=== PATIENT | female | born 1935 | race Caucasian/White ===

== ENCOUNTER 2016-08-28 10:33 | Outpatient (CLI) | payer MEDICARE, OTHER | END 2016-08-28 10:34 | disposition home or self-care (01) | DX: Z12.31 Encounter for screening mammogram for malignant neoplasm of breast (principal) ==

== ENCOUNTER 2016-09-18 09:26 | Emergency (ER) | payer MEDICARE, OTHER ==
[2016-09-18] MEDS ORDERED: SODIUM CHLORIDE 0.9% 1,000 ML IV ONE (10:09)
[2016-09-18] MEDS ORDERED: IOPAMIDOL-300 100 ML VIAL IVP ONE (12:22)
[2016-09-18] MEDS ORDERED: POTASSIUM BICARB 25 MEQ TABLET PO STA (12:54)
[2016-09-18] MEDS ORDERED: POTASSIUM BICARB 25 MEQ TABLET PO ONE (12:58)
[2016-09-18] MEDS ORDERED: ASPIRIN CHEW 81 MG TABLET PO STA (13:40)
[2016-09-18] MEDS ORDERED: ASPIRIN CHEW 81 MG TABLET ONE (13:49)
== END 2016-09-18 13:59 | disposition home or self-care (01) ==
DX: G45.9 Transient cerebral ischemic attack, unspecified (principal); Z96.0 Presence of urogenital implants; Z79.82 Long term (current) use of aspirin; I10 Essential (primary) hypertension; I25.2 Old myocardial infarction; Z85.828 Personal history of other malignant neoplasm of skin
CPT/HCPCS: 36415; 70496; 70498; 80053; 83690; 83735; 85025; 93005; 93010; 96360; 99284; A9270; Q9967

== ENCOUNTER 2017-03-02 09:09 | Outpatient (CLI) | payer MEDICARE, OTHER ==
[2017-03-02 09:24] LABS: BASOPHILS # (AUTO) 0.1 10^3/uL (0.0-0.1); BASOPHILS % (AUTO) 0.8 %; EOSINOPHILS # (AUTO) 0.1 10^3/uL (0.0-0.7); EOSINOPHILS % (AUTO) 1.1 %; HCT - HEMATOCRIT 42.2 % (37.0-47.0); HGB - HEMOGLOBIN 14.4 g/dL (12.0-16.0); LYMPHOCYTES % (AUTO) 26.9 %; MEAN CORPUSCULAR HEMOGLOBIN 28.4 pg (27.0-31.0); MEAN CORPUSCULAR VOLUME 83.4 fL (81.0-99.0); MEAN PLATELET VOLUME 7.1 fL (7.9-10.8); MONOCYTES # (AUTO) 0.5 10^3/uL (0.0-1.0); MONOCYTES % (AUTO) 6.9 %; NEUTROPHILS # (AUTO) 4.7 10^3/uL (1.5-6.6); NEUTROPHILS % (AUTO) 64.3 %; NUCLEATED RED BLOOD CELLS AUTO 0.1 /100WBC; RED BLOOD COUNT 5.06 10^6/uL (4.20-5.40); RED CELL DISTRIBUTION WIDTH 13.3 % (12.0-15.0); UNCORRECTED WHITE BLOOD COUNT 7.3 x10^3/uL; WHITE BLOOD COUNT 7.3 x10^3/uL (4.8-10.8)
[2017-03-02 10:05] LABS: ALBUMIN/GLOBULIN RATIO 1.3 (1.0-2.2); BILIRUBIN,TOTAL 0.3 mg/dL (0.2-1.0); BUN - BLOOD UREA NITROGEN 24 mg/dL (6-20); CALCIUM 10.2 mg/dL (8.5-10.3); CARBON DIOXIDE - CO2 27 mmol/L (21-32); CHLORIDE 98 mmol/L (101-111); CHOL/HDL RATIO 5.1 (<4.4); CHOLESTEROL 179 mg/dL; GFR - MDRD 53 (>89); GLUCOSE 137 mg/dL (70-100); HDL CHOLESTEROL 35 mg/dL; LDL/HDL RATIO 2.9 (<4.4); POTASSIUM 3.5 mmol/L (3.5-5.0); SODIUM 138 mmol/L (135-145); TOTAL PROTEIN 7.4 g/dL (6.7-8.2); TRIGLYCERIDES 214 mg/dL; VLDL CHOLESTEROL 43 mg/dL
[2017-03-02 10:09] LABS: HEMOGLOBIN A1C 0.79 g/dL
== END 2017-03-02 09:10 | disposition home or self-care (01) ==
LOC: LAB 09:09
PROVIDERS: ATTEND Family Medicine
DX: E11.9 Type 2 diabetes mellitus without complications (principal); I10 Essential (primary) hypertension
CPT/HCPCS: 36415; 80053; 80061; 82043; 83036; 84443; 85025

== ENCOUNTER 2017-08-23 15:31 | Outpatient (CLI) | payer MEDICARE, OTHER | END 2017-08-23 15:32 | disposition critical access hospital (66) | LOC: EMS 15:31 | PROVIDERS: ATTEND Surgery | DX: M25.551 Pain in right hip (principal); S00.81XA Abrasion of other part of head, initial encounter; W01.0XXA Fall on same level from slipping, tripping and stumbling without subsequent striking against object, initial encounter; Y93.89 Activity, other specified; Y92.008 Other place in unspecified non-institutional (private) residence as the place of occurrence of the external cause | CPT/HCPCS: A0425; A0429 ==

== ENCOUNTER 2017-08-23 15:53 | Emergency (ER) | payer MEDICARE, OTHER ==
[2017-08-23] MEDS ORDERED: ACETAMINOPHEN 325 MG TABLET PO STA (16:00)
[2017-08-23 16:01] VITALS: BP 172/81
--- NOTE | 2017-08-23 16:10 | ED Physician Documentation ---
History of Present Illness - Stated complaint Stated Complaint: GLF - Additonal information Additional information: hx from pt 82 female tripped over toyin leash and fell hit head - R orthodox hemaotoma some neck pain no CP no AP pain to low back R SI region no numbness or weakness on plavix otherwsie well recently no fever cough NVD etc Review of Systems Constitutional: denies: Fever, Chills Ears: denies: Drainage/discharge Nose: denies: Epistaxis Cardiac: denies: Chest pain / pressure Respiratory: denies: Dyspnea GI: denies: Abdominal Pain, Nausea, Vomiting Musculoskeletal: reports: Neck pain, Back pain Neurologic: reports: Headache, Head injury. 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 Derm: Skin cancer surgery - Present Medications Home Medications: Ambulatory Orders Medication Instructions Recorded Confirmed Cetirizine HCl [Zyrtec] 10 mg PO DAILY 01/10/13 11/10/15 Cholecalciferol (Vitamin D3) 5,000 unit PO DAILY 01/10/13 11/10/15 [Vitamin D-3] Ciprofloxacin HCl [Cipro] 250 mg PO BID 01/10/13 11/10/15 Esomeprazole Magnesium [Nexium] 40 mg PO BID 01/10/13 11/10/15 Fluticasone [Flonase] 1 sprays KELVIN BID 01/10/13 11/10/15 Hydrochlorothiazide 25 mg PO DAILY 01/10/13 11/10/15 Levothyroxine [Synthroid] 25 mcg PO HS 01/10/13 11/10/15 Magnesium 250 mg PO HS PRN 01/10/13 11/10/15 Metoprolol Succinate [Toprol Xl] 50 mg PO DAILY 01/10/13 11/10/15 Oxybutynin [Ditropan] 5 mg PO BID 01/10/13 11/10/15 Sennosides/Docusate Sodium [Stool 1 each PO BID 01/10/13 11/10/15 Softener Tablet] Gabapentin 300 cap PO Q8H PRN 11/10/15 11/10/15 Latanoprost [Xalatan] 1 drops EACHEYE QPM 11/10/15 11/10/15 traMADol [Ultram] 50 mg PO Q8H PRN 11/10/15 11/10/15 Lidocaine Patch 5% [Lidoderm Patch] 1 each TOP DAILY PRN #10 patch 08/23/17 - Allergies Allergies/Adverse Reactions: Allergies Allergy/AdvReac Type Severity Reaction Status Date / Time alcohol Allergy Intermediate unsure Verified 09/18/16 09:45 chocolate flavor Allergy Unknown Unknown Verified 09/18/16 09:45 Penicillins Allergy Unknown unknown Verified 09/18/16 09:45 Sulfa (Sulfonamide Allergy Unknown unknown Verified 09/18/16 09:45 Antibiotics) adhesive Allergy Unknown Verified 09/18/16 09:45 bee venom protein (honey bee) Allergy Unknown Verified 09/18/16 09:45 coconut Allergy Unknown Verified 09/18/16 09:45 grass pollen Allergy Unknown Verified 09/18/16 09:45 mussels Allergy Unknown Verified 09/18/16 09:45 mustard Allergy Unknown Verified 09/18/16 09:45 pepper Allergy Unknown Verified 09/18/16 09:45 pollen extracts Allergy Unknown Verified 09/18/16 09:45 strawberry Allergy Unknown Verified 09/18/16 09:45 walnut Allergy Unknown Verified 09/18/16 09:45 JOHN Inhibitors AdvReac Intermediate dizzy Verified 09/18/16 09:45 ciprofloxacin [From Cipro] AdvReac Intermediate dizzy/light Verified 09/18/16 09 :45 headed ciprofloxacin HCl * AdvReac Intermediate dizzy/light Verified 09/18/16 09:45 [From Cipro] headed codeine [Codeine] AdvReac Intermediate gi problems Verified 09/18/16 09:45 midazolam HCl * [From Versed] AdvReac Intermediate short term Verified 09/18/16 09:45 memory loss osorio pepppers Allergy Mild allergy Uncoded 09/18/16 09:45 symptoms flu vaccine AdvReac Intermediate redness Uncoded 09/18/16 09:45 - Social History Does the pt smoke?: No Smoking Status: Never smoker Does the pt drink ETOH?: No Does the pt have substance abuse?: No - Immunizations Immunizations are current?: No Immunizations: TDAP >10years/unknown PD ED PE NORMAL - Vitals Vital signs reviewed: Yes - HEENT HEENT: No: Atraumatic (hemaotkm a bruise and sup lac to R orthodox, no finley sign , no periorbital ecchymosis) - Neck Neck: Other (no focal TTP but will image 2/2 age and mechansim) - Cardiac Cardiac: RRR - Respiratory Respiratory: No respiratory distress, Clear bilaterally - Abdomen Abdomen: Non tender - Back Back: Other (more R SO region and R ST lumbar region) - Derm Derm: Normal color - Extremities Extremities: Normal ROM s pain, No calf tenderness / cord - Neuro 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, 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, No motor deficit, No sensory deficit, Normal speech Eye Opening: Spontaneous Motor: Obeys Commands Verbal: Oriented GCS Score: 15 Results - Vitals Vitals: Vital Signs - 24 hr 08/23/17 15:56 Temperature 36.2 C L Heart Rate 72 Respiratory 18 Rate Blood Pressure 172/81 H O2 Saturation 96 Oxygen O2 Source Room air - Rads (name of study) CTH Radiology: See rad report (R frontal hemaotma, no ICH or fx) CTCS Radiology: See rad report (no fx) CT LS Radiology: See rad report (no fx, bony demineralization, degen changes and stenosis again noted) CT pelvis Radiology: See rad report (no fx) Departure - Departure Disposition: 01 Home, Self Care Clinical Impression: Head injury Qualifiers: Encounter type: initial encounter Qualified Code(s): S09.90XA - Unspecified injury of head, initial encounter Low back sprain Qualifiers: Encounter type: initial encounter Qualified Code(s): S33.9XXA - Sprain of unspecified parts of lumbar spine and pelvis, initial encounter Fall Qualifiers: Encounter type: initial encounter Qualified Code(s): W19.XXXA - Unspecified fall, initial encounter Condition: Good Instructions: ED Head Injury Closed, ED Low Back Pain Injury Follow-Up: John Tsang MD [Primary Care Provider] - Prescriptions: Lidocaine Patch 5% [Lidoderm Patch] 1 each TOP DAILY PRN #10 patch PRN Reason: Pain Comments: Thankfully all the pictures came back fine. You have degenerative changes of the spine and pelvis but no fracture. Recommend ice to keep the swelling down and tylenol and and lidocaine patches as needed for pain
--- NOTE | 2017-08-23 16:54 | CT Report ---
EXAM: CT HEAD EXAM DATE: 08/23/2017 04:29 PM. CLINICAL HISTORY: Fall R mandaeism injury. COMPARISON: 09/18/2016. TECHNIQUE: Multiaxial CT images were obtained from the foramen magnum to the vertex. Reformats: Coron al. IV contrast: None. In accordance with CT protocol optimization, one or more of the following dose reduction techniques w ere utilized for this exam: automated exposure control, adjustment of mA and/or KV based on patient s ize, or use of iterative reconstructive technique. FINDINGS: Parenchyma: No intraparenchymal hemorrhage. No evidence of mass, midline shift, or CT findings of inf arction. Negro-white differentiation is distinct. Extraaxial Spaces: Normal for age. No subdural or epidural collections identified. Ventricles: Normal in size and position. Sinuses and Orbits: Imaged paranasal sinuses, orbits, and mastoids show no significant abnormality. Bones: No evidence of fracture or calvarial defect. Other: Small right frontal scalp hematoma. IMPRESSION: No acute intracranial abnormality. Right frontal scalp hematoma. [facility] Referring Provider Line: [phone] SITE ID: [id number]
--- NOTE | 2017-08-23 16:55 | CT Preliminary Report ---
Exam: CT PELVIS W/O IMPRESSION: 1. Bony demineralization. No acute fracture or dislocation identified. [facility] SITE ID: [id number]
--- NOTE | 2017-08-23 16:55 | CT Report ---
EXAM: CT BONY PELVIS WITHOUT CONTRAST EXAM DATE: 08/23/2017 04:32 PM. CLINICAL HISTORY: Fall L SI region and low back pain. COMPARISON: None. TECHNIQUE: Thin-section axial images were acquired of the pelvis without contrast. Post-processing: C oronal and sagittal reformats. Other: None. In accordance with CT protocol optimization, one or more of the following dose reduction techniques w ere utilized for this exam: automated exposure control, adjustment of mA and/or KV based on patient s ize, or use of iterative reconstructive technique. FINDINGS: Bones: Bony demineralization. No acute fracture identified. Sacroiliac Joints: Mild bilateral degenerative change. Symphysis Pubis: Mild degenerative change. Right Hip: Mild to moderate degenerative change with mild narrowing, subchondral sclerosis and subcho ndral cysts, as well as small osteophytes. Chronic change along the greater trochanter. No dislocatio n. Left Hip: Mild to moderate degenerative change with mild narrowing, subchondral sclerosis and subchon dral cysts, as well as small osteophytes. Chronic change along the greater trochanter. No dislocation . Musculature: Unremarkable. Pelvic Cavity: No acute focal inflammatory change. Mild clonic diverticulosis. Uterus appears surgica lly absent. Other: Posterior implanted battery pack with lead extending to the left presacral region. IMPRESSION: 1. Bony demineralization. No acute fracture or dislocation identified. [facility] Referring Provider Line: [phone] SITE ID: [id number]
--- NOTE | 2017-08-23 17:00 | CT Report ---
EXAM: CT CERVICAL SPINE WITHOUT CONTRAST DATE: 08/23/2017 04:29 PM. HISTORY: Fall HI. COMPARISONS: None. TECHNIQUE: Thin-section axial images were acquired of the cervical spine without contrast. Post-proce ssing: Coronal and sagittal reformats. Other: None. In accordance with CT protocol optimization, one or more of the following dose reduction techniques w ere utilized for this exam: automated exposure control, adjustment of mA and/or KV based on patient s ize, or use of iterative reconstructive technique. FINDINGS: Mild motion artifact. Alignment: No scoliosis or spondylolisthesis. Bones: No fracture or bone lesion. Interspace Levels/Facets: Moderate to severe disk degeneration with endplate proliferation at C4-C5, C5-C6 and C6-C7. Moderate central canal stenosis at C5-C6 and C6-C7. Multilevel moderate facet arthrosis. Moderate mid and lowe r cervical foraminal stenosis, greater on the right. Musculature: Unremarkable. Other: The paravertebral and prevertebral soft tissues are unremarkable. The lung apices are clear. IMPRESSION: No acute fracture. [facility] Referring Provider Line: [phone] SITE ID: [id number]
--- NOTE | 2017-08-23 17:03 | CT Report ---
EXAM: CT LUMBAR SPINE WITHOUT CONTRAST EXAM DATE: 08/23/2017 04:32 PM. CLINICAL HISTORY: Fall low back pain. COMPARISONS: MRI 11/21/2013. TECHNIQUE: Thin-section axial images were acquired of the lumbar spine from T12 to S1 without contras t. Post-processing: Coronal and sagittal reformats. Other: None. In accordance with CT protocol optimization, one or more of the following dose reduction techniques w ere utilized for this exam: automated exposure control, adjustment of mA and/or KV based on patient s ize, or use of iterative reconstructive technique. FINDINGS: Alignment: Mild anterolisthesis of L4 on L5 measuring approximately 4 mm. Mild retrolisthesis of L2 o n L3 measuring approximately 3 mm. Bones: Bony demineralization. No acute fracture identified. Multilevel degenerative change with endpl ate sclerosis, osteophyte formation. Disk Levels/Facets: Multilevel degenerative change with disk space narrowing, endplate sclerosis and irregularity, and os teophyte formation. Multilevel facet arthropathy also present, most notably at the lower lumbar spine . Probable central canal stenosis again noted that appears most notable at L4-L5 level. Musculature: No fatty atrophy. Other: Small cyst at the superior pole of the right kidney. No hydronephrosis on either side. Small c alcification at the mid to upper left kidney. Implanted device at the right posterior subcutaneous so ft tissues with lead extending to the left presacral region. Atherosclerotic vascular calcification. IMPRESSION: 1. Bony demineralization. No acute fracture identified. 2. Multilevel degenerative disk disease and facet arthropathy again noted. Probable degenerative mild retrolisthesis of L2 on L3, and mild anterolisthesis of L4 on L5. Central canal stenosis again noted , most notably at the L4-L5 level. [facility] Referring Provider Line: [phone] SITE ID: [id number]
== END 2017-08-23 17:59 | disposition home or self-care (01) ==
LOC: EDUNIT# → ED 15:53
DX: S00.03XA Contusion of scalp, initial encounter (principal); S33.5XXA Sprain of ligaments of lumbar spine, initial encounter; W01.0XXA Fall on same level from slipping, tripping and stumbling without subsequent striking against object, initial encounter; I10 Essential (primary) hypertension; I25.2 Old myocardial infarction; J45.909 Unspecified asthma, uncomplicated; K21.9 Gastro-esophageal reflux disease without esophagitis; M19.90 Unspecified osteoarthritis, unspecified site
CPT/HCPCS: 70450; 72125; 72131; 72192; 99283; A9270

== ENCOUNTER 2017-08-30 09:00 | Outpatient (CLI) | payer MEDICARE, OTHER ==
--- NOTE | 2017-08-31 11:11 | Mammography Report ---
DIGITAL SCREENING MAMMOGRAM: 08/30/2017 CLINICAL INDICATION: An 82-year-old nulliparous patient for screening. COMPARISON: 08/2016, 08/2015, 07/2014, 07/2013, 06/2012, 04/2011, 05/2010, 05/2009. TECHNIQUE: Routine CC and MLO projections were obtained of the breasts. FINDINGS: Parenchymal tissue within the breasts is predominantly fatty replaced. There are no dominant masses, suspicious microcalcifications, or secondary signs of malignancy. In comparison to the previous studies, there are no significant changes. IMPRESSION: NO MAMMOGRAPHIC EVIDENCE OF MALIGNANCY. NO SIGNIFICANT INTERVAL CHANGES. RECOMMENDATION: Screening mammography is recommended annually. BIRADS CATEGORY 1 - NEGATIVE. STANDARD QUALIFYING STATEMENTS: 1. This examination was reviewed with the aid of Computed-Aided Detection (CAD). 2. A negative or benign imaging report should not delay biopsy if clinically suspicious findings are present. Consider surgical consultation if warranted. More than 5% of cancers are not identified by imaging. 3. Dense breasts may obscure an underlying neoplasm. TD: 08/31/2017 11:09
== END 2017-08-30 09:01 | disposition home or self-care (01) ==
LOC: DI 09:00
PROVIDERS: ATTEND Family Medicine
DX: Z12.31 Encounter for screening mammogram for malignant neoplasm of breast (principal)
CPT/HCPCS: 77067

== ENCOUNTER 2017-12-20 11:01 | Emergency (ER) | payer MEDICARE, OTHER ==
[2017-12-20 11:08] VITALS: BP 136/63
[2017-12-20 12:34] LABS: BASOPHILS # (AUTO) 0.1 10^3/uL (0.0-0.1); BASOPHILS % (AUTO) 0.8 %; EOSINOPHILS % (AUTO) 0.6 %; HGB - HEMOGLOBIN 14.3 g/dL (12.0-16.0); LYMPHOCYTES # (AUTO) 1.4 10^3/uL (1.5-3.5); LYMPHOCYTES % (AUTO) 19.3 %; MEAN CORPUSCULAR HEMOGLOBIN 28.7 pg (27.0-31.0); MEAN CORPUSCULAR HGB CONC 32.9 g/dL (32.0-36.0); MEAN CORPUSCULAR VOLUME 87.4 fL (81.0-99.0); MEAN PLATELET VOLUME 7.7 fL (7.9-10.8); MONOCYTES # (AUTO) 0.5 10^3/uL (0.0-1.0); MONOCYTES % (AUTO) 7.4 %; NEUTROPHILS # (AUTO) 5.3 10^3/uL (1.5-6.6); NEUTROPHILS % (AUTO) 71.9 %; PLT - PLATELET COUNT 208 10^3/uL (130-450); RED BLOOD COUNT 4.98 10^6/uL (4.20-5.40); RED CELL DISTRIBUTION WIDTH 13.4 % (12.0-15.0); WHITE BLOOD COUNT 7.3 x10^3/uL (4.8-10.8)
--- NOTE | 2017-12-20 12:46 | ED Physician Documentation ---
History of Present Illness - Stated complaint Stated Complaint: DIZZY - Chief complaint Chief Complaint: Neuro - History obtained from History obtained from: Patient, Family - History of Present Illness Timing: How many years ago (2) Pain level max: 0 Pain level now: 0 Improved by: rest Worsened by: standing, walking - Additonal information Additional information: Patient is an 82-year-old female presents to the emergency department with long- standing history of dizziness and lightheadedness. States for the past week or so she has felt more off balance than usual. Her diuretic was recently stopped. She does not drink much water. No headaches. No focal neurological deficits. The room is not spinning. She does not feel near syncopal. Denies any urinary symptoms. No chest pain. No shortness of breath. Review of Systems Ten Systems: 10 systems reviewed and negative Constitutional: denies: Fever, Chills Ears: denies: Ear pain Nose: denies: Rhinorrhea / runny nose, Congestion Throat: denies: Sore throat Cardiac: denies: Chest pain / pressure, Palpitations Respiratory: denies: Dyspnea, Cough GI: denies: Abdominal Pain, Nausea, Vomiting, Diarrhea : denies: Dysuria Skin: denies: Rash Musculoskeletal: denies: Neck pain, Back pain Neurologic: denies: Focal weakness, Numbness, Confused, Altered mental status, Headache PD PAST MEDICAL HISTORY - Past Medical History Cardiovascular: Hypertension, [place] Respiratory: Asthma Endocrine/Autoimmune: None GI: GERD : Incontinence HEENT: None Psych: None Musculoskeletal: Osteoarthritis Derm: None - Past Surgical History Past Surgical History: Yes General: Cholecystectomy Ortho: 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 Derm: Skin cancer surgery - Present Medications Home Medications: Ambulatory Orders Medication Instructions Recorded Confirmed Cetirizine HCl [Zyrtec] 10 mg PO DAILY 01/10/13 11/10/15 Esomeprazole Magnesium [Nexium] 40 mg PO BID 01/10/13 11/10/15 Fluticasone [Flonase] 1 sprays KELVIN BID 01/10/13 11/10/15 Levothyroxine [Synthroid] 25 mcg PO HS 01/10/13 11/10/15 Magnesium 250 mg PO HS PRN 01/10/13 11/10/15 Metoprolol Succinate [Toprol Xl] 50 mg PO DAILY 01/10/13 11/10/15 Oxybutynin [Ditropan] 5 mg PO BID 01/10/13 11/10/15 Sennosides/Docusate Sodium [Stool 1 each PO BID 01/10/13 11/10/15 Softener Tablet] Latanoprost [Xalatan] 1 drops EACHEYE QPM 11/10/15 11/10/15 Atorvastatin [Lipitor] 12/20/17 Biofreeze 12/20/17 Cefdinir 300 mg PO BID #10 capsule 12/20/17 Clopidogrel Bisulfate [Clopidogrel] 12/20/17 Magnesium 250 mg PO 12/20/17 12/20/17 - Allergies Allergies/Adverse Reactions: Allergies Allergy/AdvReac Type Severity Reaction Status Date / Time alcohol Allergy Intermediate unsure Verified 12/20/17 11:13 chocolate flavor Allergy Unknown Unknown Verified 12/20/17 11:13 Penicillins Allergy Unknown unknown Verified 12/20/17 11:13 Sulfa (Sulfonamide Allergy Unknown unknown Verified 12/20/17 11:13 Antibiotics) adhesive Allergy Unknown Verified 12/20/17 11:13 bee venom protein (honey bee) Allergy Unknown Verified 12/20/17 11:13 coconut Allergy Unknown Verified 12/20/17 11:13 grass pollen Allergy Unknown Verified 12/20/17 11:13 mussels Allergy Unknown Verified 12/20/17 11:13 mustard Allergy Unknown Verified 12/20/17 11:13 pepper (genus Capsicum) Allergy Unknown Verified 12/20/17 11:13 [pepper] pollen extracts Allergy Unknown Verified 12/20/17 11:13 strawberry Allergy Unknown Verified 12/20/17 11:13 walnut Allergy Unknown Verified 12/20/17 11:13 JOHN Inhibitors AdvReac Intermediate dizzy Verified 12/20/17 11:13 ciprofloxacin [From Cipro] AdvReac Intermediate dizzy/light Verified 12/20/17 11 :13 headed ciprofloxacin HCl * AdvReac Intermediate dizzy/light Verified 12/20/17 11:13 [From Cipro] headed codeine [Codeine] AdvReac Intermediate gi problems Verified 12/20/17 11:13 midazolam HCl * [From Versed] AdvReac Intermediate short term Verified 12/20/17 11:13 memory loss osorio pepppers Allergy Mild allergy Uncoded 12/20/17 11:13 symptoms flu vaccine AdvReac Intermediate redness Uncoded 12/20/17 11:13 - Social History Does the pt smoke?: No Smoking Status: Never smoker Does the pt drink ETOH?: No Does the pt have substance abuse?: No - Immunizations Immunizations are current?: No Immunizations: TDAP >10years/unknown PD ED PE NORMAL - Vitals Vital signs reviewed: Yes - General General: Alert and oriented X 3, No acute distress - HEENT HEENT: PERRL, EOMI, Ears normal, Moist mucous membranes, Pharynx benign - Neck Neck: Supple, no meningeal sign - Cardiac Cardiac: RRR, Strong equal pulses - Respiratory Respiratory: No respiratory distress, Clear bilaterally - Abdomen Abdomen: Soft, Non tender, Non distended - Derm Derm: Warm and dry, No rash - Extremities Extremities: No deformity, No edema - Neuro 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, 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, No motor deficit, No sensory deficit, Normal speech, Other (no nystagmus) Eye Opening: Spontaneous Motor: Obeys Commands Verbal: Oriented GCS Score: 15 - Psych Psych: Normal mood, Normal affect Results - Vitals Vitals: Vital Signs - 24 hr 12/20/17 11:04 Temperature 36.4 C L Heart Rate 66 Respiratory 18 Rate Blood Pressure 136/63 H O2 Saturation 95 Oxygen O2 Source Room air - EKG (time done) 1220 Rate: Rate (enter#) (60) Rhythm: NSR [place]: Normal Intervals: Normal MD QRS: Normal Ischemia: Normal ST segments Computer interpretation: Agree with computer - Labs Labs: Laboratory Tests 12/20/17 12/20/17 12/20/17 12:27 12:27 14:55 WBC 7.3 RBC 4.98 Hgb 14.3 Hct 43.5 MCV 87.4 MCH 28.7 MCHC 32.9 RDW 13.4 Plt Count 208 MPV 7.7 L Neut # (Auto) 5.3 Lymph # (Auto) 1.4 L [place] # (Auto) 0.5 Eos # (Auto) 0.0 Baso # (Auto) 0.1 Absolute Nucleated RBC 0.00 Nucleated RBC % 0.0 Sodium 137 Potassium 3.8 Chloride 105 Carbon Dioxide 27 Anion Gap 5.0 L BUN 27 H Creatinine 0.9 Estimated GFR (MDRD) 60 L Glucose 161 H Calcium 9.8 Total Bilirubin 0.5 AST 20 ALT 20 Alkaline Phosphatase 83 Total Creatine Kinase 145 Total Protein 7.0 Albumin 3.6 Globulin 3.4 Albumin/Globulin Ratio 1.1 Lipase 18 L Urine Color YELLOW Urine Clarity HAZY Urine pH 6.0 Ur Specific [place] 1.020 Urine Protein NEGATIVE Urine Glucose (UA) NEGATIVE Urine Ketones NEGATIVE Urine Occult Blood NEGATIVE Urine Nitrite POSITIVE H Urine Bilirubin NEGATIVE Urine Urobilinogen 0.2 (NORMAL) Ur Leukocyte Esterase SMALL H Urine RBC 0-5 Urine WBC 11-25 H Ur Squamous Epith Cells NONE SEEN Urine Bacteria Many H Ur Microscopic Review INDICATED Urine Culture Comments INDICATED PD MEDICAL DECISION MAKING - ED course Complexity details: reviewed results, re-evaluated patient, considered differential, d/w patient, d/w family ED course: Patient is an 82-year-old female who presents to the emergency department what appears to be dehydration and a UTI. She is well-appearing, nontoxic. Afebrile. Feels better after IV fluids. Off-balance feeling resolved. Will place on antibiotics and have her follow-up with her doctor. Patient counseled regarding signs and symptoms for which I believe and urgent re-evaluation would be necessary. Patient with good understanding of and agreement to plan and is comfortable going home at this time This document was made in part using voice recognition software. While efforts are made to proofread this document, sound alike and grammatical errors may occur. - Sepsis Event Vital Signs: Vital Signs - 24 hr 12/20/17 11:04 Temperature 36.4 C L Heart Rate 66 Respiratory 18 Rate Blood Pressure 136/63 H O2 Saturation 95 Oxygen O2 Source Room air Departure - Departure Disposition: 01 Home, Self Care Clinical Impression: Dehydration UTI (urinary tract infection) Qualifiers: Urinary tract infection type: acute cystitis Hematuria presence: without hematuria Qualified Code(s): N30.00 - Acute cystitis without hematuria Condition: Good Instructions: ED Dehydration Follow-Up: Benita Berumen MD [Provider Admit Priv/Credential] - Within 1 week Prescriptions: Cefdinir 300 mg PO BID #10 capsule Comments: return if you worsen. Drink plenty of water at home. You were dehydrated today. You also have a bladder infection and need to take all antibiotics until gone. Discharge Date/Time: 12/20/17 15:21
[2017-12-20 12:48] LABS: ALBUMIN 3.6 g/dL (3.2-5.5); ALBUMIN/GLOBULIN RATIO 1.1 (1.0-2.2); BILIRUBIN,TOTAL 0.5 mg/dL (0.2-1.0); CALCIUM 9.8 mg/dL (8.5-10.3); CREATININE 0.9 mg/dL (0.4-1.0)
[2017-12-20] MEDS ORDERED: SODIUM CHLORIDE 0.9% 1,000 ML IV ONE (12:56)
[2017-12-20 15:11] LABS: BILIRUBIN,URINE NEGATIVE (NEGATIVE); GLUCOSE, URINE (UA) NEGATIVE (NEGATIVE); KETONES,URINE (UA) NEGATIVE (NEGATIVE); LEUKOCYTE ESTERASE, URINE SMALL (NEGATIVE); NITRITE,URINE POSITIVE (NEGATIVE); OCCULT BLOOD,URINE NEGATIVE (NEGATIVE); PROTEIN,URINE NEGATIVE (NEGATIVE); UROBILINOGEN,URINE 0.2 (NORMAL) E.U./dL (NORMAL)
[2017-12-20 15:12] LABS: CLARITY,URINE HAZY (CLEAR)
[2017-12-20 15:36] LABS: RBC,URINE 0-5 /HPF (0-5)
[2017-12-20 15:37] LABS: BACTERIA,URINE Many /HPF (None Seen); SQUAMOUS EPITHELIAL CELL,UR NONE SEEN (<= Few)
== END 2017-12-20 15:21 | disposition home or self-care (01) ==
LOC: ED 11:01
DX: E86.0 Dehydration (principal); N30.00 Acute cystitis without hematuria
CPT/HCPCS: 36415; 80053; 81001; 81003; 82550; 83690; 85025; 87086; 87181; 93005; 96360; 96361; 99283; 99284

== ENCOUNTER 2018-01-04 09:49 | Outpatient (CLI) | payer MEDICARE, OTHER ==
[2018-01-04 10:24] LABS: BASOPHILS # (AUTO) 0.1 10^3/uL (0.0-0.1); BASOPHILS % (AUTO) 0.7 %; EOSINOPHILS # (AUTO) 0.1 10^3/uL (0.0-0.7); EOSINOPHILS % (AUTO) 0.8 %; LYMPHOCYTES # (AUTO) 1.5 10^3/uL (1.5-3.5); LYMPHOCYTES % (AUTO) 19.3 %; MEAN CORPUSCULAR HEMOGLOBIN 28.6 pg (27.0-31.0); MEAN CORPUSCULAR HGB CONC 33.6 g/dL (32.0-36.0); MEAN CORPUSCULAR VOLUME 85.2 fL (81.0-99.0); MEAN PLATELET VOLUME 7.6 fL (7.9-10.8); MONOCYTES # (AUTO) 0.5 10^3/uL (0.0-1.0); MONOCYTES % (AUTO) 6.8 %; NEUTROPHILS # (AUTO) 5.5 10^3/uL (1.5-6.6); NEUTROPHILS % (AUTO) 72.4 %; PLT - PLATELET COUNT 225 10^3/uL (130-450); RED BLOOD COUNT 4.91 10^6/uL (4.20-5.40); RED CELL DISTRIBUTION WIDTH 13.2 % (12.0-15.0); WHITE BLOOD COUNT 7.6 x10^3/uL (4.8-10.8)
[2018-01-04 11:22] LABS: HB2 TOTAL 15.2 g/dL; HEMOGLOBIN A1C 0.72 g/dL; HEMOGLOBIN A1C % 6.5 % (4.6-6.2)
[2018-01-04 11:31] LABS: ALBUMIN 4.1 g/dL (3.2-5.5); ALBUMIN/GLOBULIN RATIO 1.4 (1.0-2.2); ALKALINE PHOSPHATASE 93 IU/L (42-121); ALT ALANINE AMINOTRANSFERASE 22 IU/L (10-60); AST ASPARTATE AMINOTRANSFERASE 21 IU/L (10-42); BILIRUBIN,TOTAL 0.7 mg/dL (0.2-1.0); BUN - BLOOD UREA NITROGEN 17 mg/dL (6-20); CALCIUM 9.9 mg/dL (8.5-10.3); CARBON DIOXIDE - CO2 26 mmol/L (21-32); CHLORIDE 102 mmol/L (101-111); CHOL/HDL RATIO 3.7 (<4.4); CHOLESTEROL 146 mg/dL; CREATININE 0.9 mg/dL (0.4-1.0); GFR - MDRD 60 (>89); GLUCOSE 131 mg/dL (70-100); HDL CHOLESTEROL 39 mg/dL; LDL CHOLESTEROL,CALCULATED 82 mg/dL; LDL/HDL RATIO 2.1 (<4.4); SODIUM 138 mmol/L (135-145); VLDL CHOLESTEROL 25 mg/dL
[2018-01-04 12:39] LABS: THYROID STIMULATING HORMONE 2.82 uIU/mL (0.34-5.60)
== END 2018-01-04 09:50 | disposition home or self-care (01) ==
LOC: LAB 09:49
PROVIDERS: ATTEND Family Medicine
DX: R94.5 Abnormal results of liver function studies (principal); E11.9 Type 2 diabetes mellitus without complications; E78.5 Hyperlipidemia, unspecified; F03.90 Unspecified dementia, unspecified severity, without behavioral disturbance, psychotic disturbance, mood disturbance, and anxiety; E03.9 Hypothyroidism, unspecified; I10 Essential (primary) hypertension
CPT/HCPCS: 36415; 80053; 80061; 82043; 82607; 82747; 83036; 83721; 84443; 85025

== ENCOUNTER 2018-01-21 19:01 | Emergency (ER) | payer MEDICARE, OTHER ==
--- NOTE | 2018-01-21 20:00 | XRAY Report ---
Reason: knee pain Procedure Date: 01/21/2018 Accession Number: [id number] / [id number] Procedure: XR - Knee 3 View RT CPT Code: FULL RESULT: EXAM: RIGHT KNEE RADIOGRAPHY EXAM DATE: 01/21/2018 07:30 PM. CLINICAL HISTORY: Knee pain. COMPARISON: None. TECHNIQUE: 3 views. FINDINGS: Bones: There is chronic-appearing spurring of the quadriceps tendon on patella and of the lateral femoral condyle. No acute fracture. Joints: Joint spaces preserved. No joint effusion. Soft Tissues: There is anterior soft tissue swelling. IMPRESSION: 1. Chronic degenerative disease and spurring without acute fracture. [facility]
--- NOTE | 2018-01-21 20:37 | ED Physician Documentation ---
PD HPI LOWER EXT INJURY - Stated complaint Stated Complaint: KNEE PX - Chief complaint Chief Complaint: Ext Problem - History obtained from History obtained from: Patient - History of Present Illness PD HPI LOW EXT INJURY LOCATION: Right, Knee Type of injury: Other (she was just getting up from sitting on toilet and felt a sharp pain in right knee, which continued with attempted weight bearing and walking. Feels sharp pain.). No: Fall, Twist Where injury occurred: Home Timing - onset: Last night Timing - details: Abrupt onset, Still present Worsened by: Other (weight bearing and full extension) Associated symptoms: No: Weakness, Numbness, Swelling Similar symptoms before: Has not had sx before Review of Systems Constitutional: denies: Fever, Chills Skin: denies: Rash, Lesions Neurologic: denies: Focal weakness, Numbness PD PAST MEDICAL HISTORY - Past Medical History Past Medical History: Yes Cardiovascular: Hypertension, [place] Respiratory: Asthma Endocrine/Autoimmune: None GI: GERD : Incontinence HEENT: None Psych: None Musculoskeletal: Osteoarthritis Derm: None - Past Surgical History Past Surgical History: Yes General: Cholecystectomy 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 Derm: Skin cancer surgery - Present Medications Home Medications: Ambulatory Orders Medication Instructions Recorded Confirmed Cetirizine HCl [Zyrtec] 10 mg PO DAILY 01/10/13 11/10/15 Esomeprazole Magnesium [Nexium] 20 mg PO DAILY 01/10/13 11/10/15 Fluticasone [Flonase] 1 sprays KELVIN BID 01/10/13 11/10/15 Levothyroxine [Synthroid] 25 mcg PO HS 01/10/13 11/10/15 Metoprolol Succinate [Toprol Xl] 50 mg PO DAILY 01/10/13 11/10/15 Oxybutynin [Ditropan] 15 mg PO BID 01/10/13 11/10/15 Sennosides/Docusate Sodium [Stool 1 each PO BID 01/10/13 11/10/15 Softener Tablet] Latanoprost [Xalatan] 1 drops EACHEYE QPM 11/10/15 11/10/15 Atorvastatin [Lipitor] 15 mg PO DAILY 12/20/17 Clopidogrel Bisulfate [Clopidogrel] 1 tab PO DAILY 12/20/17 Magnesium 250 mg PO 12/20/17 12/20/17 Clobetasol Propionate 1 01/21/18 Mineral Oil/Petrolatum,White 1 applic 01/21/18 [Hydrocerin Cream] hydroCHLOROthiazide 1 tab PO DAILY 01/21/18 [Hydrochlorothiazide] - Allergies Allergies/Adverse Reactions: Allergies Allergy/AdvReac Type Severity Reaction Status Date / Time alcohol Allergy Intermediate unsure Verified 01/21/18 19:11 chocolate flavor Allergy Unknown Unknown Verified 01/21/18 19:11 Penicillins Allergy Unknown unknown Verified 01/21/18 19:11 Sulfa (Sulfonamide Allergy Unknown unknown Verified 01/21/18 19:11 Antibiotics) adhesive Allergy Unknown Verified 01/21/18 19:11 bee venom protein (honey bee) Allergy Unknown Verified 01/21/18 19:11 coconut Allergy Unknown Verified 01/21/18 19:11 grass pollen Allergy Unknown Verified 01/21/18 19:11 mussels Allergy Unknown Verified 01/21/18 19:11 mustard Allergy Unknown Verified 01/21/18 19:11 pepper (genus Capsicum) Allergy Unknown Verified 01/21/18 19:11 [pepper] pollen extracts Allergy Unknown Verified 01/21/18 19:11 strawberry Allergy Unknown Verified 01/21/18 19:11 walnut Allergy Unknown Verified 01/21/18 19:11 JOHN Inhibitors AdvReac Intermediate dizzy Verified 01/21/18 19:11 ciprofloxacin [From Cipro] AdvReac Intermediate dizzy/light Verified 01/21/18 19 :11 headed ciprofloxacin HCl * AdvReac Intermediate dizzy/light Verified 01/21/18 19:11 [From Cipro] headed codeine [Codeine] AdvReac Intermediate gi problems Verified 01/21/18 19:11 midazolam HCl * [From Versed] AdvReac Intermediate short term Verified 01/21/18 19:11 memory loss osorio pepppers Allergy Mild allergy Uncoded 01/21/18 19:11 symptoms flu vaccine AdvReac Intermediate redness Uncoded 01/21/18 19:11 - Social History Does the pt smoke?: No Smoking Status: Never smoker Does the pt drink ETOH?: No Does the pt have substance abuse?: No - Immunizations Immunizations are current?: No Immunizations: TDAP >10years/unknown PD ED PE NORMAL - Vitals Vital signs reviewed: Yes - General General: Alert and oriented X 3, No acute distress (seems comfortable sitting; but pain with weight bearing. ), Well developed/nourished - Back Back: No CVA TTP, No spinal TTP - Derm Derm: Normal color, Warm and dry - Extremities Extremities: No tenderness to palpate, Normal ROM s pain, No edema, No calf tenderness / cord, Other (right knee without effusion. Tender anterior inferior and medially. No laxity with stress testiong but does hurt with valgus. No clicking nor popping on passive ROM. I tried some valgus stress and straightening thinking there was some flap of meniscus to unlock. She did seem to be some less painful with full extension after that. ) - Neuro Neuro: No motor deficit, No sensory deficit Results - Vitals Vitals: Oxygen O2 Source Room air - Rads (name of study) right knee Radiology: Prelim report reviewed (arthritic changes; no loose bodies nor fractures), EMP read contemporaneously PD MEDICAL DECISION MAKING - ED course Complexity details: reviewed results (xray with some arthritis, no fractures nor loose bodies. ), considered differential (SOunds likely to be meniscal tear or contusion. ), d/w patient - Sepsis Event Vital Signs: Oxygen O2 Source Room air Departure - Departure Disposition: 01 Home, Self Care Clinical Impression: Right knee pain Qualifiers: Chronicity: acute Qualified Code(s): M25.561 - Pain in right knee Acute meniscal injury of knee Qualifiers: Encounter type: initial encounter Laterality: right Qualified Code(s): S83.8X1A - Sprain of other specified parts of right knee, initial encounter Condition: Stable Record reviewed to determine appropriate education?: Yes Instructions: ED Meniscal Injury Knee Poss Follow-Up: Benita Berumen MD [Primary Care Provider] - Comments: Use Aleve twice daily. Add Tylenol if needed for pain. Use knee brace when up and around to reduce motion in the knee and help support it. I think your pain sounds like it is coming from a meniscal injury and will see if this quiets down over the next several days to a week using the knee brace. He can have the brace off when you are resting and sleeping. Follow-up with your primary care next week if not improved. Discharge Date/Time: 01/21/18 21:33
[2018-01-21] MEDS ORDERED: ACETAMINOPHEN 325 MG TABLET PO STA (20:58)
[2018-01-21] MEDS ORDERED: NAPROXEN 250 MG TABLET PO STA (20:58)
[2018-01-21 21:33] VITALS: BP 154/88
== END 2018-01-21 21:33 | disposition home or self-care (01) ==
LOC: ED 19:01
DX: S83.8X1A Sprain of other specified parts of right knee, initial encounter (principal); I10 Essential (primary) hypertension; X50.1XXA Overexertion from prolonged static or awkward postures, initial encounter; Y92.002 Bathroom of unspecified non-institutional (private) residence as the place of occurrence of the external cause
CPT/HCPCS: 29530; 73562; 99283; A9270

== ENCOUNTER 2018-05-13 13:34 | Outpatient (CLI) | payer MEDICARE, OTHER | END 2018-05-13 13:35 | disposition home or self-care (01) | LOC: LAB 13:34 | PROVIDERS: ATTEND Family Medicine | DX: R41.3 Other amnesia (principal); R42 Dizziness and giddiness | CPT/HCPCS: 36415; 83921 ==

== ENCOUNTER 2018-06-03 13:52 | Outpatient (CLI) | payer MEDICARE, OTHER ==
--- NOTE | 2018-06-03 19:15 | Ultrasound Report ---
Reason: TIA,DIZZINESS CHRONIC Procedure Date: 06/03/2018 Accession Number: [id number] / [id number] Procedure: US - Carotid Doppler Complete CPT Code: FULL RESULT: EXAM: BILATERAL CAROTID AND VERTEBRAL ARTERY DUPLEX DOPPLER ULTRASOUND: EXAM DATE: 06/03/2018 03:55 PM CLINICAL HISTORY: TIA, dizziness chronic. COMPARISON: None. TECHNIQUE: Grayscale imaging, color Doppler, and duplex spectral Doppler were used to evaluate the carotid and vertebral arteries bilaterally. Static images were obtained. FINDINGS: No significant plaque is identified in the right or left common or internal carotid arteries. Normal antegrade flow is present in bilateral vertebral arteries. VELOCITIES (cm/sec): Right CCA mid: PSV 78.4 cm/sec CCA dist: PSV 71.8 cm/sec ICA prox: PSV 58.7 cm/sec, EDV 12.7 cm/sec ICA mid: PSV 60.1 cm/sec, EDV 12.7 cm/sec ICA dist: PSV 56.9 cm/sec, EDV 12.3 cm/sec ECA: PSV 91.9 cm/sec Vert: PSV 29.7 cm/sec ICA/CCA: 0.76 Left CCA mid: PSV 91.3 cm/sec CCA dist: PSV 85.5 cm/sec ICA prox: PSV 66.9 cm/sec, EDV 13.6 cm/sec ICA mid: PSV 58.6 cm/sec, EDV 14.9 cm/sec ICA dist: PSV 65.3 cm/sec, EDV 17.9 cm/sec ECA: PSV 79.1 cm/sec Vert: PSV 36.4 cm/sec ICA/CCA: 0.73 ICA diameter stenosis: Right: <50% by velocity and <70% by NASCET criteria. Left: <50% by velocity and <70% by NASCET criteria. IMPRESSION: 1. No significant bilateral carotid artery plaquing. 2. In the right carotid artery there are no elevated carotid artery velocities to suggest hemodynamically significant stenosis. 3. In the left carotid artery there are no elevated carotid artery velocities to suggest hemodynamically significant stenosis. 4. Normal antegrade flow is present in bilateral vertebral arteries. General Recommendations: Stenosis =50% ICA - Follow-up ultrasound 6-12 months Stenosis <50% ICA - High Risk Patient with plaque - Follow-up ultrasound 1-2 years Normal Study but High Risk Patient - Follow-up ultrasound 3-5 years Management recommendations and diagnostic criteria are based on current IAC endorsed standards in Carotid Artery Stenosis: Grayscale and Doppler Ultrasound Diagnosis. Validated velocity measurements with angiographic measurements and velocity criteria are extrapolated from diameter data as defined by the Society of Radiologists in Ultrasound Consensus Conference Radiology 2003; 229;340-346. RADIA
== END 2018-06-03 13:53 | disposition home or self-care (01) ==
LOC: DI 13:52
PROVIDERS: ATTEND Family Medicine
DX: G45.9 Transient cerebral ischemic attack, unspecified (principal); R42 Dizziness and giddiness; I77.819 Aortic ectasia, unspecified site
CPT/HCPCS: 93306; 93880

== ENCOUNTER 2018-07-09 11:09 | Emergency (ER) | payer MEDICARE, OTHER ==
--- NOTE | 2018-07-09 12:21 | ED Physician Documentation ---
PD HPI SYNCOPE - Stated complaint Stated Complaint: SYNCOPE/SENT BY - Chief complaint Chief Complaint: Neuro - History obtained from History obtained from: Patient - History of Present Illness Witnessed: Unwitnessed Timing - onset: How many hours ago (1-2) Duration: Seconds (She states she walked down to get the mail and back which is about 150 yards. She does this regularly. Upon returning she is just getting in to the house and then had a abrupt lightheadedness and went down to her knees. She feels she was passed out for just a few seconds. Her dog was still by her side. She states she has some pain in her knees but is able to walk. She did not feel that she struck her head. She denied any preceding chest pain belly pain or headache and none since. She did not have any shortness of breath no chest pain while out walking the dog.) Preceding symptoms: Light headed (very brief prior to the episode, none since). No: Headache, Chest pain, Palpitations, Abdominal pain, Nausea / vomiting, Generalized weakness Associated symptoms: Other (was feeling her common symptoms of vertigo this morning). No: Headache, Chest pain, Palpitations, Nausea / vomiting, Abdominal pain Contributing factors: No: Recent med change (had BP medchanged about a month ago and was not feeling lightheaded. She has had several months of vertigo type symptoms related to position change and says she saw a specialist in [facility] about it without Rx per se.), Decreased PO intake, Just stood up Injury occurred: Other (feeling sore at the knees.) Similar symptoms before: Has not had sx before (not feeling of syncope. She says she gets vertigo often and has been to specialist about it. Not associated with feeling that she passed out previously.) Recently seen: Not recently seen Review of Systems Constitutional: denies: Fever Nose: denies: Rhinorrhea / runny nose, Congestion Throat: denies: Sore throat Cardiac: denies: Chest pain / pressure, Palpitations Respiratory: denies: Dyspnea, Cough GI: denies: Abdominal Pain, Nausea, Vomiting, Diarrhea : denies: Dysuria, Frequency PD PAST MEDICAL HISTORY - Past Medical History Cardiovascular: Hypertension, [place] Respiratory: Asthma Endocrine/Autoimmune: None GI: GERD : Incontinence HEENT: None Psych: None Musculoskeletal: Osteoarthritis Derm: None - Past Surgical History Past Surgical History: Yes General: Cholecystectomy 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 Derm: Skin cancer surgery - Present Medications Home Medications: Ambulatory Orders Medication Instructions Recorded Confirmed Cetirizine HCl [Zyrtec] 10 mg PO DAILY 01/10/13 07/09/18 Esomeprazole Magnesium [Nexium] 20 mg PO DAILY 01/10/13 07/09/18 Fluticasone [Flonase] 1 sprays KELVIN BID 01/10/13 07/09/18 Levothyroxine [Synthroid] 25 mcg PO HS 01/10/13 07/09/18 Metoprolol Succinate [Toprol Xl] 50 mg PO DAILY 01/10/13 07/09/18 Oxybutynin [Ditropan] 15 mg PO BID 01/10/13 07/09/18 Sennosides/Docusate Sodium [Stool 1 each PO BID 01/10/13 07/09/18 Softener Tablet] Latanoprost [Xalatan] 1 drops EACHEYE QPM 11/10/15 07/09/18 Atorvastatin [Lipitor] 15 mg PO DAILY 12/20/17 07/09/18 Clopidogrel Bisulfate [Clopidogrel] 1 tab PO DAILY 12/20/17 07/09/18 Magnesium 250 mg PO DAILY 12/20/17 07/09/18 Clobetasol Propionate 1 applic TD BID 01/21/18 07/09/18 Mineral Oil/Petrolatum,White 1 applic TD BID 01/21/18 07/09/18 [Hydrocerin Cream] hydroCHLOROthiazide 1 tab PO DAILY 01/21/18 07/09/18 [Hydrochlorothiazide] Nitrofurantoin Monohyd/M-Cryst 100 mg PO BID #10 capsule 07/09/18 [Macrobid 100 mg Capsule] - Allergies Allergies/Adverse Reactions: Allergies Allergy/AdvReac Type Severity Reaction Status Date / Time alcohol Allergy Intermediate unsure Verified 07/09/18 11:24 chocolate flavor Allergy Unknown Unknown Verified 07/09/18 11:24 Penicillins Allergy Unknown unknown Verified 07/09/18 11:24 Sulfa (Sulfonamide Allergy Unknown unknown Verified 07/09/18 11:24 Antibiotics) adhesive Allergy Unknown Verified 07/09/18 11:24 bee venom protein (honey bee) Allergy Unknown Verified 07/09/18 11:24 coconut Allergy Unknown Verified 07/09/18 11:24 grass pollen Allergy Unknown Verified 07/09/18 11:24 mussels Allergy Unknown Verified 07/09/18 11:24 mustard Allergy Unknown Verified 07/09/18 11:24 pepper (genus Capsicum) Allergy Unknown Verified 07/09/18 11:24 [pepper] pollen extracts Allergy Unknown Verified 07/09/18 11:24 strawberry Allergy Unknown Verified 07/09/18 11:24 walnut Allergy Unknown Verified 07/09/18 11:24 JOHN Inhibitors AdvReac Intermediate dizzy Verified 07/09/18 11:24 ciprofloxacin [From Cipro] AdvReac Intermediate dizzy/light Verified 07/09/18 11:24 headed ciprofloxacin HCl * AdvReac Intermediate dizzy/light Verified 07/09/18 11:24 [From Cipro] headed codeine [Codeine] AdvReac Intermediate gi problems Verified 07/09/18 11:24 midazolam HCl * [From Versed] AdvReac Intermediate short term Verified 07/09/18 11:24 memory loss osorio pepppers Allergy Mild allergy Uncoded 07/09/18 11:24 symptoms flu vaccine AdvReac Intermediate redness Uncoded 07/09/18 11:24 - Social History Does the pt smoke?: No Smoking Status: Never smoker Does the pt drink ETOH?: No Does the pt have substance abuse?: No - Immunizations Immunizations are current?: No Immunizations: TDAP >10years/unknown PD ED PE NORMAL - Vitals Vital signs reviewed: Yes - General General: Alert and oriented X 3, No acute distress, Well developed/nourished - HEENT HEENT: Pharynx benign - Neck Neck: Supple, no meningeal sign, No adenopathy, No JVD, No bruit - Cardiac Cardiac: RRR, No murmur - Respiratory Respiratory: Clear bilaterally - Abdomen Abdomen: Soft, Non tender - Back Back: No CVA TTP - Derm Derm: Normal color, Warm and dry - Extremities Extremities: Normal ROM s pain, No edema, No calf tenderness / cord, Other (some tenderness/mild bruising anterior infrapatellar both sides. ) - Neuro 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, No motor deficit, Normal speech Eye Opening: Spontaneous Motor: Obeys Commands Verbal: Oriented GCS Score: 15 Results - Vitals Vitals: Oxygen O2 Source Room air - EKG (time done) 11:21 Rate: Rate (enter#) (62) Rhythm: NSR [place]: Normal Intervals: Normal [place] QRS: Normal Ischemia: Normal ST segments. No: ST elevation c/w ischemia, ST depression - Labs Labs: Microbiology 07/09/18 12:10 Urine Culture - Final Urine,Clean Catch Less Than 10,000 COLONIES/ML UROGENITAL CONSTANTIN Laboratory Tests 07/09/18 07/09/18 07/09/18 12:05 12:10 13:23 WBC 6.8 RBC 4.99 Hgb 14.2 Hct 42.3 MCV 84.7 MCH 28.5 MCHC 33.7 RDW 13.2 Plt Count 207 MPV 7.6 L Neut # (Auto) 4.7 Lymph # (Auto) 1.5 [place] # (Auto) 0.5 Eos # (Auto) 0.0 Baso # (Auto) 0.0 Absolute Nucleated RBC 0.01 Nucleated RBC % 0.1 Sodium Potassium Chloride Carbon Dioxide Anion Gap BUN Creatinine Estimated GFR (MDRD) Glucose POC Whole Bld Glucose 124 H Calcium Magnesium Total Bilirubin AST ALT Alkaline Phosphatase Troponin I Total Protein Albumin Globulin Albumin/Globulin Ratio Lipase Urine Color YELLOW Urine Clarity CLEAR Urine pH 6.5 Ur Specific [place] 1.015 Urine Protein NEGATIVE Urine Glucose (UA) NEGATIVE Urine Ketones NEGATIVE Urine Occult Blood NEGATIVE Urine Nitrite NEGATIVE Urine Bilirubin NEGATIVE Urine Urobilinogen 0.2 (NORMAL) Ur Leukocyte Esterase MODERATE H Urine RBC None Seen Urine WBC 6-10 H Ur Squamous Epith Cells FEW Squamous Urine Bacteria Rare Ur Microscopic Review INDICATED Urine Culture Comments INDICATED 07/09/18 07/09/18 13:23 13:23 WBC RBC Hgb Hct MCV MCH MCHC RDW Plt Count MPV Neut # (Auto) Lymph # (Auto) [place] # (Auto) Eos # (Auto) Baso # (Auto) Absolute Nucleated RBC Nucleated RBC % Sodium 136 Potassium 3.4 L Chloride 100 L Carbon Dioxide 28 Anion Gap 8.0 BUN 26 H Creatinine 0.8 Estimated GFR (MDRD) 68 L Glucose 126 H POC Whole Bld Glucose Calcium 9.9 Magnesium 2.0 Total Bilirubin 0.7 AST 25 ALT 26 Alkaline Phosphatase 96 Troponin I < 0.04 Total Protein 6.8 Albumin 3.8 Globulin 3.0 Albumin/Globulin Ratio 1.3 Lipase 18 L Urine Color Urine Clarity Urine pH Ur Specific [place] Urine Protein Urine Glucose (UA) Urine Ketones Urine Occult Blood Urine Nitrite Urine Bilirubin Urine Urobilinogen Ur Leukocyte Esterase Urine RBC Urine WBC Ur Squamous Epith Cells Urine Bacteria Ur Microscopic Review Urine Culture Comments PD MEDICAL DECISION MAKING - ED course Complexity details: reviewed results, considered differential (did not sound exertional per se, though came at end of getting the mail. Sounds very brief, seconds or so, with some knee bruising, so not full flat fall but to knees first. Shared decision about going home versus OBS for tele watching and she prefers going home. ), d/w patient Departure - Departure Disposition: Home, Self Care Clinical Impression: Syncope Qualifiers: Syncope type: unspecified Qualified Code(s): R55 - Syncope and collapse UTI (urinary tract infection) Qualifiers: Urinary tract infection type: acute cystitis Hematuria presence: without hematuria Qualified Code(s): N30.00 - Acute cystitis without hematuria Condition: Stable Record reviewed to determine appropriate education?: Yes Instructions: ED Fainting Unkn Cause Follow-Up: Robert Santillan MD [Primary Care Provider] - Prescriptions: Nitrofurantoin Monohyd/M-Cryst [Macrobid 100 mg Capsule] 100 mg PO BID #10 capsule Comments: Stay well-hydrated. There is no obvious reason bad reason for your fainting episode. At this point stay well-hydrated and see how you do over the next several days. There was a mild appearing bladder infection which I do not think is enough to make you faint but we will treated with a mild antibiotic since we did identify it. Recheck if recurrent episodes or any other associated symptoms such as chest pain, shortness of breath, belly pain etc. Discharge Date/Time: 07/09/18 14:06
[2018-07-09 12:33] LABS: BILIRUBIN,URINE NEGATIVE (NEGATIVE); GLUCOSE, URINE (UA) NEGATIVE (NEGATIVE); KETONES,URINE (UA) NEGATIVE (NEGATIVE); LEUKOCYTE ESTERASE, URINE MODERATE (NEGATIVE); NITRITE,URINE NEGATIVE (NEGATIVE); OCCULT BLOOD,URINE NEGATIVE (NEGATIVE); PH,URINE 6.5 PH (5.0-7.5); PROTEIN,URINE NEGATIVE (NEGATIVE); UROBILINOGEN,URINE 0.2 (NORMAL) E.U./dL (NORMAL)
[2018-07-09 12:34] LABS: CLARITY,URINE CLEAR (CLEAR)
[2018-07-09 12:40] LABS: BACTERIA,URINE Rare /HPF (None Seen); RBC,URINE None Seen /HPF (0-5); SQUAMOUS EPITHELIAL CELL,UR FEW Squamous (<= Few)
[2018-07-09 13:35] LABS: BASOPHILS % (AUTO) 0.6 %; EOSINOPHILS % (AUTO) 0.7 %; HGB - HEMOGLOBIN 14.2 g/dL (12.0-16.0); LYMPHOCYTES # (AUTO) 1.5 10^3/uL (1.5-3.5); LYMPHOCYTES % (AUTO) 21.4 %; MEAN CORPUSCULAR HEMOGLOBIN 28.5 pg (27.0-31.0); MEAN CORPUSCULAR HGB CONC 33.7 g/dL (32.0-36.0); MEAN CORPUSCULAR VOLUME 84.7 fL (81.0-99.0); MEAN PLATELET VOLUME 7.6 fL (7.9-10.8); MONOCYTES # (AUTO) 0.5 10^3/uL (0.0-1.0); MONOCYTES % (AUTO) 7.7 %; NEUTROPHILS # (AUTO) 4.7 10^3/uL (1.5-6.6); NEUTROPHILS % (AUTO) 69.6 %; PLT - PLATELET COUNT 207 10^3/uL (130-450); RED BLOOD COUNT 4.99 10^6/uL (4.20-5.40); RED CELL DISTRIBUTION WIDTH 13.2 % (12.0-15.0); WHITE BLOOD COUNT 6.8 x10^3/uL (4.8-10.8)
[2018-07-09 13:43] LABS: ALBUMIN 3.8 g/dL (3.2-5.5); ALBUMIN/GLOBULIN RATIO 1.3 (1.0-2.2); BILIRUBIN,TOTAL 0.7 mg/dL (0.2-1.0); CALCIUM 9.9 mg/dL (8.5-10.3); CREATININE 0.8 mg/dL (0.4-1.0); TOTAL PROTEIN 6.8 g/dL (6.7-8.2)
[2018-07-09] MEDS ORDERED: NITROFURANTOIN MACRO 100 MG CAPSULE PO STA (13:48)
[2018-07-09 14:05] VITALS: BP 130/86
== END 2018-07-09 14:06 | disposition home or self-care (01) ==
LOC: ED 11:09
DX: R55 Syncope and collapse (principal); N30.00 Acute cystitis without hematuria; S80.02XA Contusion of left knee, initial encounter; S80.01XA Contusion of right knee, initial encounter; W18.30XA Fall on same level, unspecified, initial encounter; Y93.89 Activity, other specified; Y92.009 Unspecified place in unspecified non-institutional (private) residence as the place of occurrence of the external cause; I10 Essential (primary) hypertension
CPT/HCPCS: 36415; 80053; 81001; 83690; 83735; 84484; 85025; 87086; 93005; 99283; 99284; A9270; 81003

== ENCOUNTER 2018-07-11 12:24 | Emergency (ER) | payer MEDICARE, OTHER ==
[2018-07-11] MEDS ORDERED: SODIUM CHLORIDE 0.9% 1,000 ML IV ONE (14:20)
[2018-07-11 14:34] LABS: BASOPHILS % (AUTO) 0.3 %; EOSINOPHILS % (AUTO) 0.3 %; HGB - HEMOGLOBIN 14.3 g/dL (12.0-16.0); LYMPHOCYTES # (AUTO) 0.3 10^3/uL (1.5-3.5); LYMPHOCYTES % (AUTO) 3.1 %; MEAN CORPUSCULAR HEMOGLOBIN 28.6 pg (27.0-31.0); MEAN CORPUSCULAR HGB CONC 33.5 g/dL (32.0-36.0); MEAN CORPUSCULAR VOLUME 85.4 fL (81.0-99.0); MEAN PLATELET VOLUME 7.3 fL (7.9-10.8); MONOCYTES # (AUTO) 0.4 10^3/uL (0.0-1.0); NEUTROPHILS % (AUTO) 92.3 %; PLT - PLATELET COUNT 187 10^3/uL (130-450); RED BLOOD COUNT 4.99 10^6/uL (4.20-5.40); RED CELL DISTRIBUTION WIDTH 13.1 % (12.0-15.0); WHITE BLOOD COUNT 9.8 x10^3/uL (4.8-10.8)
[2018-07-11 14:48] LABS: ALBUMIN 3.9 g/dL (3.2-5.5); ALBUMIN/GLOBULIN RATIO 1.3 (1.0-2.2); BILIRUBIN,TOTAL 0.5 mg/dL (0.2-1.0); CALCIUM 9.8 mg/dL (8.5-10.3); CREATININE 0.9 mg/dL (0.4-1.0); TOTAL PROTEIN 6.8 g/dL (6.7-8.2)
[2018-07-11] MEDS ORDERED: POTASSIUM CHLOR 10 MEQ/100 ML 10 MEQ/100 ML BAG IV STA (15:03)
[2018-07-11] MEDS ORDERED: NAPROXEN 250 MG TABLET PO STA (15:16)
--- NOTE | 2018-07-11 17:02 | ED Physician Documentation ---
History of Present Illness - Stated complaint Stated Complaint: SENT BY DOC FOR FLUIDS - Chief complaint Chief Complaint: Neuro - History obtained from History obtained from: Patient, Other (PMD) - History of Present Illness Associated symptoms: Lightheaded when standing. - Additonal information Additional information: The patient is an 83-year-old female who was sent here from her primary physician's office for IV fluid therapy after she was found to have orthostatic symptoms in clinic. She has been lightheaded when standing. 2 days ago she fell when she became abruptly lightheaded when walking. She was seen here and evaluated at that time. She was treated with IV fluids, and was started on Macrobid for positive urinalysis. However subsequent urine culture grew less than 10,000 colonies of urogenital jeremiah, suggesting contaminated urine.the patient denies fever, chest pain, shortness of breath, nausea, vomiting, diarrhea, or dysuria. Besides lightheadedness, she reports slight palpitations. Review of Systems Constitutional: reports: Other (Lightheaded.). denies: Fever Eyes: denies: Decreased vision Ears: denies: Tinnitus/ringing Nose: denies: Congestion Throat: denies: Sore throat Cardiac: reports: Palpitations. denies: Chest pain / pressure Respiratory: denies: Dyspnea, Cough GI: denies: Abdominal Pain, Nausea, Vomiting, Diarrhea : denies: Dysuria Skin: denies: Rash Musculoskeletal: denies: Back pain Neurologic: denies: Focal weakness, Numbness, Altered mental status, Headache PD PAST MEDICAL HISTORY - Past Medical History Cardiovascular: Hypertension, [place] Respiratory: Asthma Endocrine/Autoimmune: HyPOthyroidism GI: GERD : Incontinence HEENT: None Psych: None Musculoskeletal: Osteoarthritis Derm: None - Past Surgical History Past Surgical History: Yes General: Cholecystectomy Ortho: Shoulder arthroplasty /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 Derm: Skin cancer surgery - Present Medications Home Medications: Ambulatory Orders Medication Instructions Recorded Confirmed Cetirizine HCl [Zyrtec] 10 mg PO DAILY 01/10/13 07/09/18 Esomeprazole Magnesium [Nexium] 20 mg PO DAILY 01/10/13 07/09/18 Fluticasone [Flonase] 1 sprays KELVIN BID 01/10/13 07/09/18 Levothyroxine [Synthroid] 25 mcg PO HS 01/10/13 07/09/18 Metoprolol Succinate [Toprol Xl] 50 mg PO DAILY 01/10/13 07/09/18 Oxybutynin [Ditropan] 15 mg PO BID 01/10/13 07/09/18 Sennosides/Docusate Sodium [Stool 1 each PO BID 01/10/13 07/09/18 Softener Tablet] Latanoprost [Xalatan] 1 drops EACHEYE QPM 11/10/15 07/09/18 Atorvastatin [Lipitor] 15 mg PO DAILY 12/20/17 07/09/18 Clopidogrel Bisulfate [Clopidogrel] 1 tab PO DAILY 12/20/17 07/09/18 Magnesium 250 mg PO DAILY 12/20/17 07/09/18 Clobetasol Propionate 1 applic TD BID 01/21/18 07/09/18 Mineral Oil/Petrolatum,White 1 applic TD BID 01/21/18 07/09/18 [Hydrocerin Cream] hydroCHLOROthiazide 1 tab PO DAILY 01/21/18 07/09/18 [Hydrochlorothiazide] Nitrofurantoin Monohyd/M-Cryst 100 mg PO BID #10 capsule 07/09/18 [Macrobid 100 mg Capsule] - Allergies Allergies/Adverse Reactions: Allergies Allergy/AdvReac Type Severity Reaction Status Date / Time alcohol Allergy Intermediate unsure Verified 07/11/18 12:48 chocolate flavor Allergy Unknown Unknown Verified 07/11/18 12:48 Penicillins Allergy Unknown unknown Verified 07/11/18 12:48 Sulfa (Sulfonamide Allergy Unknown unknown Verified 07/11/18 12:48 Antibiotics) adhesive Allergy Unknown Verified 07/11/18 12:48 bee venom protein (honey bee) Allergy Unknown Verified 07/11/18 12:48 coconut Allergy Unknown Verified 07/11/18 12:48 grass pollen Allergy Unknown Verified 07/11/18 12:48 mussels Allergy Unknown Verified 07/11/18 12:48 mustard Allergy Unknown Verified 07/11/18 12:48 oxycodone Allergy Unknown Verified 07/12/18 11:09 pepper (genus Capsicum) Allergy Unknown Verified 07/11/18 12:48 [pepper] pollen extracts Allergy Unknown Verified 07/11/18 12:48 strawberry Allergy Unknown Verified 07/11/18 12:48 walnut Allergy Unknown Verified 07/11/18 12:48 JOHN Inhibitors AdvReac Intermediate dizzy Verified 07/11/18 12:48 ciprofloxacin [From Cipro] AdvReac Intermediate dizzy/light Verified 07/11/18 12:48 headed ciprofloxacin HCl * AdvReac Intermediate dizzy/light Verified 07/11/18 12:48 [From Cipro] headed codeine [Codeine] AdvReac Intermediate gi problems Verified 07/11/18 12:48 midazolam HCl * [From Versed] AdvReac Intermediate short term Verified 07/11/18 12:48 memory loss osorio pepppers Allergy Mild allergy Uncoded 07/11/18 12:48 symptoms flu vaccine AdvReac Intermediate redness Uncoded 07/11/18 12:48 - Social History Does the pt smoke?: No Smoking Status: Never smoker Does the pt drink ETOH?: No Does the pt have substance abuse?: No - Immunizations Immunizations are current?: No Immunizations: TDAP >10years/unknown PD ED PE NORMAL - Vitals Vital signs reviewed: Yes (Blood pressure initially 133/32.) - General General: Alert and oriented X 3, Well developed/nourished - HEENT HEENT: Atraumatic, Pharynx benign - Neck Neck: Supple, no meningeal sign, No bony TTP, No adenopathy, No JVD - Cardiac Cardiac: RRR - Respiratory Respiratory: No respiratory distress, Clear bilaterally - Abdomen Abdomen: Soft, Non tender - Back Back: No CVA TTP, No spinal TTP - Derm Derm: No rash - Extremities Extremities: No edema, No calf tenderness / cord, Other (Ecchymosis on the right upper arm.) - Neuro 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, No motor deficit, No sensory deficit, Normal speech Results - Vitals Vitals: Oxygen O2 Source Room air - Labs Labs: Laboratory Tests 07/11/18 07/11/18 14:31 14:31 WBC 9.8 RBC 4.99 Hgb 14.3 Hct 42.6 MCV 85.4 MCH 28.6 MCHC 33.5 RDW 13.1 Plt Count 187 MPV 7.3 L Neut # (Auto) 9.0 H Lymph # (Auto) 0.3 L [place] # (Auto) 0.4 Eos # (Auto) 0.0 Baso # (Auto) 0.0 Absolute Nucleated RBC 0.00 Nucleated RBC % 0.0 Sodium 137 Potassium 2.9 L Chloride 100 L Carbon Dioxide 26 Anion Gap 11.0 BUN 25 H Creatinine 0.9 Estimated GFR (MDRD) 60 L Glucose 181 H Calcium 9.8 Total Bilirubin 0.5 AST 28 ALT 25 Alkaline Phosphatase 96 Total Protein 6.8 Albumin 3.9 Globulin 2.9 Albumin/Globulin Ratio 1.3 Lipase 18 L PD MEDICAL DECISION MAKING - ED course Complexity details: reviewed old records, reviewed results, re-evaluated patient, considered differential, d/w patient, d/w family ED course: The patient's presentation is most consistent with orthostatic hypotension due to dehydration. In addition her chemistry panel reveals hypokalemia, with potassium of 2.9. Her BUN is elevated at 25, with a normal creatinine of 0.9. Her glucose is elevated at 181. CBC and urinalysis are normal. Her clinical presentation does not suggest sepsis, acute neurologic etiology, and there is no current evidence of cardiac dysrhythmia. Treatment in the emergency department included administration of normal saline 1 L IV and potassium 10 mEq IV. She had missed her normal dose of Naprosyn, so 500 mg Naprosyn was administered orally. At the time of discharge the patient demonstrates ability to ambulate without lightheadedness. I discussed with her symptomatic treatment, outpatient follow-up, as well as potentially worrisome signs or symptoms that should prompt reevaluation in the emergency department. Departure - Departure Disposition: 01 Home, Self Care Clinical Impression: Orthostatic hypotension, Dehydration Condition: Stable Instructions: ED Hypotension Orthostatic Follow-Up: Kourtney Baer PA-C [Primary Care Provider] - Comments: Drink plenty of fluids. When you stand to give yourself time to equilibrate before you start walking. Follow-up with your primary physician within 2 weeks. Call to schedule appointment. Return to the emergency department if you develop increasing problems with dizziness or lightheadedness, or otherwise worsening symptoms. Discharge Date/Time: 07/11/18 17:22
[2018-07-11 17:06] VITALS: BP 116/65
== END 2018-07-11 17:22 | disposition home or self-care (01) ==
LOC: ED 12:24
DX: I95.1 Orthostatic hypotension (principal); E86.0 Dehydration; E87.6 Hypokalemia; R73.9 Hyperglycemia, unspecified; I10 Essential (primary) hypertension; I25.2 Old myocardial infarction
CPT/HCPCS: 36415; 80053; 83690; 85025; 96361; 96365; 96366; 99283; A9270

== ENCOUNTER 2018-07-27 15:02 | Outpatient (CLI) | payer MEDICARE, OTHER ==
--- NOTE | 2018-07-27 15:47 | XRAY Report ---
Reason: HIP PAIN LEFT Procedure Date: 07/27/2018 Accession Number: [id number] / [id number] Procedure: WCP - Hip w/Pelvis 2-3V LT CPT Code: FULL RESULT: EXAM: LEFT HIP RADIOGRAPHY EXAM DATE: 07/27/2018 03:20 PM. CLINICAL HISTORY: HIP PAIN LEFT. COMPARISON: PELVIS 1 VIEW 02/22/2015 9:21 PM. TECHNIQUE: 2 views. FINDINGS: Bones: Normal. No fractures or bone lesion. Joints: Moderate joint space narrowing of the left hip. Sacroiliac joints are congruent. Soft Tissues: Interval placement of a nerve stimulator-type device stimulator placed projecting over the right iliac wing and the stimulator lead terminating inferior to the left SI joint on the frontal projection. IMPRESSION: Moderate degenerative disease of the hip. RADIA
== END 2018-07-27 15:03 | disposition home or self-care (01) ==
LOC: DI.WCP 15:02
PROVIDERS: ATTEND Physician Assistant Medical
DX: M16.12 Unilateral primary osteoarthritis, left hip (principal); N39.0 Urinary tract infection, site not specified; E87.6 Hypokalemia
CPT/HCPCS: 36415; 80048; 87086

== ENCOUNTER 2018-07-27 15:25 | Outpatient (CLI) | payer MEDICARE, OTHER ==
[2018-07-27 19:32] LABS: CREATININE 0.9 mg/dL (0.4-1.0)
== END 2018-07-27 23:59 | disposition home or self-care (01) ==
LOC: LAB.WCP 15:25
PROVIDERS: ATTEND Physician Assistant Medical
DX: E87.6 Hypokalemia (principal)
CPT/HCPCS: 36415; 80048

== ENCOUNTER 2018-07-27 15:30 | Outpatient (CLI) | payer MEDICARE, OTHER | END 2018-07-27 23:59 | disposition home or self-care (01) | LOC: LAB.R 15:30 | PROVIDERS: ATTEND Physician Assistant Medical | DX: N39.0 Urinary tract infection, site not specified (principal) | CPT/HCPCS: 87086 ==

== ENCOUNTER 2018-07-30 09:02 | Outpatient (CLI) | payer MEDICARE, OTHER ==
--- NOTE | 2018-07-31 11:00 | CT Report ---
Reason: TIA Procedure Date: 07/30/2018 Accession Number: [id number] / [id number] Procedure: CT - HEAD WO CPT Code: FULL RESULT: EXAM: CT HEAD EXAM DATE: 07/30/2018 09:31 AM. CLINICAL HISTORY: TIA (transient ischemic attack). COMPARISON: CT head 07/19/2009. CT angiogram head and neck 09/18/2016. TECHNIQUE: Multiaxial CT images were obtained from the foramen magnum to the vertex. Reformats: Sagittal and coronal. IV contrast: None. In accordance with CT protocol optimization, one or more of the following dose reduction techniques were utilized for this exam: automated exposure control, adjustment of mA and/or KV based on patient size, or use of iterative reconstructive technique. FINDINGS: Parenchyma: There is a 3 mm calcification along the left ventral aspect of the lower fazal near its junction with the medulla which is stable dating back to the more remote comparison study. No territorial loss of negro-white matter differentiation is present. No intracranial mass or hemorrhage is present. Extraaxial Spaces: Normal for age. No subdural or epidural collections identified. Ventricles: Normal in size and position. Sinuses and Orbits: Imaged paranasal sinuses, orbits, and mastoids show no significant abnormality. Bones: No evidence of fracture or calvarial defect. Other: None. IMPRESSION: 1. A calcification along the left ventral aspect of the lower afzal is stable dating back to the more remote comparison study. This could reflect a calcified vascular lesion or the sequela of a prior infectious/inflammatory process. 2. No intracranial mass or hemorrhage is present. 3. Negro-white matter differentiation is preserved. RADIA
== END 2018-07-30 09:03 | disposition home or self-care (01) ==
LOC: DI 09:02
PROVIDERS: ATTEND Physician Assistant Medical
DX: G45.9 Transient cerebral ischemic attack, unspecified (principal)
CPT/HCPCS: 70450

== ENCOUNTER 2018-08-15 15:33 | Outpatient (CLI) | payer MEDICARE, OTHER | END 2018-08-15 15:34 | disposition home or self-care (01) | LOC: SC 15:33 | PROVIDERS: ATTEND Nurse Practitioner Family | DX: G47.10 Hypersomnia, unspecified (principal); R41.89 Other symptoms and signs involving cognitive functions and awareness; G47.8 Other sleep disorders; R53.83 Other fatigue; R06.83 Snoring | CPT/HCPCS: 99204; G0463; 99212 ==

== ENCOUNTER 2018-09-18 20:18 | Outpatient (CLI) | payer MEDICARE, OTHER | END 2018-09-18 20:19 | disposition home or self-care (01) | LOC: SC 20:18 | PROVIDERS: ATTEND Internal Medicine Pulmonary Disease | DX: G47.8 Other sleep disorders (principal); R06.83 Snoring; I10 Essential (primary) hypertension; G47.50 Parasomnia, unspecified | CPT/HCPCS: 95810 ==

== ENCOUNTER 2018-10-05 15:43 | Outpatient (CLI) | payer MEDICARE, OTHER | END 2018-10-05 15:44 | disposition home or self-care (01) | LOC: SC 15:43 | PROVIDERS: ATTEND Nurse Practitioner Family | DX: R06.83 Snoring (principal); F51.3 Sleepwalking [somnambulism]; F51.5 Nightmare disorder; R03.0 Elevated blood-pressure reading, without diagnosis of hypertension | CPT/HCPCS: 99214; G0463; 99212 ==

== ENCOUNTER 2018-11-02 08:00 | Outpatient (CLI) | payer MEDICARE, OTHER ==
[2018-11-02 19:02] LABS: ALBUMIN 4.2 g/dL (3.2-5.5); ALBUMIN/GLOBULIN RATIO 1.4 (1.0-2.2); BILIRUBIN,TOTAL 0.5 mg/dL (0.2-1.0); CALCIUM 10.3 mg/dL (8.5-10.3); CREATININE 0.8 mg/dL (0.4-1.0); TOTAL PROTEIN 7.1 g/dL (6.7-8.2)
[2018-11-02 19:10] LABS: BASOPHILS % (AUTO) 0.6 %; EOSINOPHILS % (AUTO) 0.5 %; HGB - HEMOGLOBIN 14.4 g/dL (12.0-16.0); LYMPHOCYTES # (AUTO) 1.4 10^3/uL (1.5-3.5); LYMPHOCYTES % (AUTO) 19.2 %; MEAN CORPUSCULAR HEMOGLOBIN 28.6 pg (27.0-31.0); MEAN CORPUSCULAR VOLUME 86.7 fL (81.0-99.0); MEAN PLATELET VOLUME 8.1 fL (7.9-10.8); MONOCYTES # (AUTO) 0.5 10^3/uL (0.0-1.0); MONOCYTES % (AUTO) 7.2 %; NEUTROPHILS # (AUTO) 5.3 10^3/uL (1.5-6.6); NEUTROPHILS % (AUTO) 72.5 %; PLT - PLATELET COUNT 211 10^3/uL (130-450); RED BLOOD COUNT 5.02 10^6/uL (4.20-5.40); RED CELL DISTRIBUTION WIDTH 13.3 % (12.0-15.0); WHITE BLOOD COUNT 7.4 x10^3/uL (4.8-10.8)
== END 2018-11-02 23:59 | disposition home or self-care (01) ==
LOC: LAB.WCP 08:00
PROVIDERS: ATTEND Physician Assistant Medical
DX: E11.9 Type 2 diabetes mellitus without complications (principal); R42 Dizziness and giddiness; E03.9 Hypothyroidism, unspecified
CPT/HCPCS: 36415; 80053; 81599; 83036; 84443; 85025

== ENCOUNTER 2019-01-13 11:05 | Emergency (ER) | payer MEDICARE, OTHER ==
--- NOTE | 2019-01-13 11:56 | ED Physician Documentation ---
History of Present Illness - Stated complaint Stated Complaint: DIZZINESS - Chief complaint Chief Complaint: Neuro - History obtained from History obtained from: Patient, Family - History of Present Illness Timing: How many years ago (1.5) - Additonal information Additional information: 83-year-old female with a history of diabetes hypertension and bladder dysf unction has recently discontinued the use of hydrochlorothiazide and changed her blood pressure medication. She has been feeling lightheaded and dizzy and she is come to the emergency department today with feeling that she might pass out. She is had something like this similarly back in June she was found to be dehydrated and I believe this is why they discontinued the hydrochlorothiazide. Her timing of events does not sound entirely correct. She is aknowledging some problems with memory and brings in a nicely typewritten medication list and medical history. 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 Derm: Skin cancer surgery - Present Medications Home Medications: Ambulatory Orders Medication Instructions Recorded Confirmed Cetirizine HCl [Zyrtec] 10 mg PO DAILY 01/10/13 07/09/18 Esomeprazole Magnesium [Nexium] 20 mg PO DAILY 01/10/13 07/09/18 Fluticasone [Flonase] 1 sprays KELVIN BID 01/10/13 07/09/18 Levothyroxine [Synthroid] 25 mcg PO HS 01/10/13 07/09/18 Metoprolol Succinate [Toprol Xl] 50 mg PO DAILY 01/10/13 07/09/18 Oxybutynin [Ditropan] 15 mg PO BID 01/10/13 07/09/18 Sennosides/Docusate Sodium [Stool 1 each PO BID 01/10/13 07/09/18 Softener Tablet] Latanoprost [Xalatan] 1 drops EACHEYE QPM 11/10/15 07/09/18 Atorvastatin [Lipitor] 15 mg PO DAILY 12/20/17 07/09/18 Clopidogrel Bisulfate [Clopidogrel] 1 tab PO DAILY 12/20/17 07/09/18 Magnesium 250 mg PO DAILY 12/20/17 07/09/18 Clobetasol Propionate 1 applic TD BID 01/21/18 07/09/18 Mineral Oil/Petrolatum,White 1 applic TD BID 01/21/18 07/09/18 [Hydrocerin Cream] hydroCHLOROthiazide 1 tab PO DAILY 01/21/18 07/09/18 [Hydrochlorothiazide] Nitrofurantoin Monohyd/M-Cryst 100 mg PO BID #10 capsule 07/09/18 [Macrobid 100 mg Capsule] - Allergies Allergies/Adverse Reactions: Allergies Allergy/AdvReac Type Severity Reaction Status Date / Time alcohol Allergy Intermediate unsure Verified 07/11/18 12:48 chocolate flavor Allergy Unknown Unknown Verified 07/11/18 12:48 Penicillins Allergy Unknown unknown Verified 07/11/18 12:48 Sulfa (Sulfonamide Allergy Unknown unknown Verified 07/11/18 12:48 Antibiotics) adhesive Allergy Unknown Verified 07/11/18 12:48 bee venom protein (honey bee) Allergy Unknown Verified 07/11/18 12:48 coconut Allergy Unknown Verified 07/11/18 12:48 grass pollen Allergy Unknown Verified 07/11/18 12:48 mussels Allergy Unknown Verified 07/11/18 12:48 mustard Allergy Unknown Verified 07/11/18 12:48 oxycodone Allergy Unknown Verified 07/12/18 11:09 pepper (genus Capsicum) Allergy Unknown Verified 07/11/18 12:48 [pepper] pollen extracts Allergy Unknown Verified 07/11/18 12:48 strawberry Allergy Unknown Verified 07/11/18 12:48 walnut Allergy Unknown Verified 07/11/18 12:48 JOHN Inhibitors AdvReac Intermediate dizzy Verified 07/11/18 12:48 ciprofloxacin [From Cipro] AdvReac Intermediate dizzy/light Verified 07/11/18 12:48 headed ciprofloxacin HCl * AdvReac Intermediate dizzy/light Verified 07/11/18 12:48 [From Cipro] headed codeine [Codeine] AdvReac Intermediate gi problems Verified 07/11/18 12:48 midazolam HCl * [From Versed] AdvReac Intermediate short term Verified 07/11/18 12:48 memory loss osorio pepppers Allergy Mild allergy Uncoded 07/11/18 12:48 symptoms flu vaccine AdvReac Intermediate redness Uncoded 07/11/18 12:48 - Social History Does the pt smoke?: No Smoking Status: Never smoker Does the pt drink ETOH?: No Does the pt have substance abuse?: No - Immunizations Immunizations are current?: No Immunizations: TDAP >10years/unknown PD ED PE NORMAL - Vitals Vital signs reviewed: Yes (hypertensive) - General General: No acute distress, Well developed/nourished - HEENT HEENT: Atraumatic, PERRL, EOMI - Neck Neck: Supple, no meningeal sign, No bony TTP - Cardiac Cardiac: RRR, No murmur - Respiratory Respiratory: No respiratory distress, Clear bilaterally - Abdomen Abdomen: Normal bowel sounds, Soft, Non tender, Non distended, No organomegaly - Back Back: No CVA TTP, No spinal TTP - Derm Derm: Normal color, Warm and dry, No rash - Extremities Extremities: No deformity, No edema - 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, No motor deficit, No sensory deficit, Normal speech Eye Opening: Spontaneous Motor: Obeys Commands Verbal: Oriented GCS Score: 15 - Psych Psych: Normal mood, Normal affect Results - Vitals Vitals: Vital Signs - 24 hr 01/13/19 01/13/19 01/13/19 11:09 12:50 13:18 Temperature 35.9 C L Heart Rate 69 64 68 Respiratory 18 20 14 Rate Blood Pressure 176/66 H 167/68 H 201/89 H O2 Saturation 99 98 95 Oxygen O2 Source Room air - EKG (time done) 1115 Rate: Rate (enter#) (69) Rhythm: NSR Ischemia: Q waves Compare to prior EKG: Changed from prior EKG (SPT 07-09-18 PVC's are now present) Computer interpretation: Agree with computer - Labs Labs: Laboratory Tests 01/13/19 01/13/19 01/13/19 11:24 12:55 12:55 WBC 7.3 RBC 4.95 Hgb 13.8 Hct 44.0 MCV 88.9 MCH 27.9 MCHC 31.4 L RDW 12.9 Plt Count 197 MPV 9.3 Neut # (Auto) 4.8 Lymph # (Auto) 1.7 [place] # (Auto) 0.7 Eos # (Auto) 0.1 Baso # (Auto) 0.1 Absolute Nucleated RBC 0.00 Nucleated RBC % 0.0 Sodium 139 Potassium 4.2 Chloride 104 Carbon Dioxide 26 Anion Gap 9.0 BUN 26 H Creatinine 0.9 Estimated GFR (MDRD) 60 L Glucose 101 H POC Whole Bld Glucose 158 H Calcium 9.9 Total Bilirubin 0.3 AST 18 ALT 21 Alkaline Phosphatase 81 Total Protein 6.8 Albumin 3.8 Globulin 3.0 Albumin/Globulin Ratio 1.3 Lipase 20 L Urine Color Urine Clarity Urine pH Ur Specific [place] Urine Protein Urine Glucose (UA) Urine Ketones Urine Occult Blood Urine Nitrite Urine Bilirubin Urine Urobilinogen Ur Leukocyte Esterase Ur Microscopic Review Urine Culture Comments 01/13/19 13:14 WBC RBC Hgb Hct MCV MCH MCHC RDW Plt Count MPV Neut # (Auto) Lymph # (Auto) [place] # (Auto) Eos # (Auto) Baso # (Auto) Absolute Nucleated RBC Nucleated RBC % Sodium Potassium Chloride Carbon Dioxide Anion Gap BUN Creatinine Estimated GFR (MDRD) Glucose POC Whole Bld Glucose Calcium Total Bilirubin AST ALT Alkaline Phosphatase Total Protein Albumin Globulin Albumin/Globulin Ratio Lipase Urine Color YELLOW Urine Clarity CLEAR Urine pH 7.5 Ur Specific [place] 1.015 Urine Protein NEGATIVE Urine Glucose (UA) NEGATIVE Urine Ketones NEGATIVE Urine Occult Blood NEGATIVE Urine Nitrite NEGATIVE Urine Bilirubin NEGATIVE Urine Urobilinogen 0.2 (NORMAL) Ur Leukocyte Esterase NEGATIVE Ur Microscopic Review NOT INDICATED Urine Culture Comments NOT INDICATED Procedures - IVC sono (time) 1115 Bedside IVC sono: IVC measures (cm) (0.94), IVC collapsed c insp (cm) (complete), Dehydration (est 1-2 liter deficit) PD MEDICAL DECISION MAKING - ED course Complexity details: reviewed old records, reviewed results, re-evaluated patient, considered differential, d/w patient, d/w family ED course: 83-year-old female with history of hypertension and diabetes is found to be dehydrated on interrogation the inferior vena cava and she is given intravenous saline. Her primary complaint today wasSaline she feels much improved. She admits to numbness and lightheadedness and like she might pass out. After hydration with poor oral intake of fluids. She does develop some pain in her chest which is promptly relieved with use of Mylanta Departure - Departure Disposition: Home, Self Care Clinical Impression: Dehydration Condition: Stable Instructions: ED Dehydration Follow-Up: Kourtney Baer PA-C [Primary Care Provider] -
[2019-01-13] MEDS ORDERED: SODIUM CHLORIDE 0.9% 1,000 ML IV ONE (12:59)
[2019-01-13 13:07] LABS: BASOPHILS # (AUTO) 0.1 10^3/uL (0.0-0.1); BASOPHILS % (AUTO) 0.7 %; EOSINOPHILS # (AUTO) 0.1 10^3/uL (0.0-0.7); EOSINOPHILS % (AUTO) 0.8 %; HGB - HEMOGLOBIN 13.8 g/dL (12.0-16.0); LYMPHOCYTES # (AUTO) 1.7 10^3/uL (1.5-3.5); LYMPHOCYTES % (AUTO) 22.7 %; MEAN CORPUSCULAR HEMOGLOBIN 27.9 pg (27.0-31.0); MEAN CORPUSCULAR HGB CONC 31.4 g/dL (32.0-36.0); MEAN CORPUSCULAR VOLUME 88.9 fL (81.0-99.0); MEAN PLATELET VOLUME 9.3 fL (7.9-10.8); MONOCYTES # (AUTO) 0.7 10^3/uL (0.0-1.0); MONOCYTES % (AUTO) 9.1 %; NEUTROPHILS # (AUTO) 4.8 10^3/uL (1.5-6.6); NEUTROPHILS % (AUTO) 66.3 %; PLT - PLATELET COUNT 197 10^3/uL (130-450); RED BLOOD COUNT 4.95 10^6/uL (4.20-5.40); RED CELL DISTRIBUTION WIDTH 12.9 % (12.0-15.0); WHITE BLOOD COUNT 7.3 x10^3/uL (4.8-10.8)
[2019-01-13 13:20] LABS: BILIRUBIN,URINE NEGATIVE (NEGATIVE); GLUCOSE, URINE (UA) NEGATIVE (NEGATIVE); KETONES,URINE (UA) NEGATIVE (NEGATIVE); LEUKOCYTE ESTERASE, URINE NEGATIVE (NEGATIVE); NITRITE,URINE NEGATIVE (NEGATIVE); OCCULT BLOOD,URINE NEGATIVE (NEGATIVE); PH,URINE 7.5 PH (5.0-7.5); PROTEIN,URINE NEGATIVE (NEGATIVE); UROBILINOGEN,URINE 0.2 (NORMAL) E.U./dL (NORMAL)
[2019-01-13 13:21] LABS: CLARITY,URINE CLEAR (CLEAR)
[2019-01-13 13:29] LABS: ALBUMIN 3.8 g/dL (3.2-5.5); ALBUMIN/GLOBULIN RATIO 1.3 (1.0-2.2); BILIRUBIN,TOTAL 0.3 mg/dL (0.2-1.0); CALCIUM 9.9 mg/dL (8.5-10.3); CREATININE 0.9 mg/dL (0.4-1.0); TOTAL PROTEIN 6.8 g/dL (6.7-8.2)
[2019-01-13] MEDS ORDERED: MAG HYDROX/AL HYDROX/SIMETH 30 ML UDC PO STA (13:46)
[2019-01-13 14:26] VITALS: BP 198/88
== END 2019-01-13 14:30 | disposition home or self-care (01) ==
LOC: ED 11:05
DX: E86.0 Dehydration (principal); I10 Essential (primary) hypertension; E11.9 Type 2 diabetes mellitus without complications
CPT/HCPCS: 36415; 80053; 81003; 83690; 84484; 85025; 93005; 96360; 99281; 99284; A9270; 81001; 87086

== ENCOUNTER 2019-01-26 10:40 | Outpatient (CLI) | payer MEDICARE, OTHER ==
[2019-01-26 19:12] LABS: HEMOGLOBIN A1C 0.68 g/dL; HEMOGLOBIN A1C % 6.6 % (4.6-6.2)
[2019-01-26 19:15] LABS: ALBUMIN 3.9 g/dL (3.2-5.5); ALBUMIN/GLOBULIN RATIO 1.3 (1.0-2.2); ALKALINE PHOSPHATASE 79 IU/L (42-121); ALT ALANINE AMINOTRANSFERASE 17 IU/L (10-60); AST ASPARTATE AMINOTRANSFERASE 19 IU/L (10-42); BILIRUBIN,TOTAL 0.5 mg/dL (0.2-1.0); BUN - BLOOD UREA NITROGEN 24 mg/dL (6-20); CALCIUM 9.8 mg/dL (8.5-10.3); CARBON DIOXIDE - CO2 26 mmol/L (21-32); CHLORIDE 106 mmol/L (101-111); CHOL/HDL RATIO 3.9 (<4.4); CHOLESTEROL 160 mg/dL; CREATININE 0.8 mg/dL (0.4-1.0); GFR - MDRD 68 (>89); GLUCOSE 120 mg/dL (70-100); HDL CHOLESTEROL 41 mg/dL; LDL CHOLESTEROL,CALCULATED 90 mg/dL; LDL/HDL RATIO 2.2 (<4.4); SODIUM 140 mmol/L (135-145); TOTAL PROTEIN 6.8 g/dL (6.7-8.2); VLDL CHOLESTEROL 29 mg/dL
== END 2019-01-26 23:59 | disposition home or self-care (01) ==
LOC: LAB.WCP 10:40
PROVIDERS: ATTEND Physician Assistant Medical
DX: E11.9 Type 2 diabetes mellitus without complications (principal); E78.5 Hyperlipidemia, unspecified; R94.5 Abnormal results of liver function studies
CPT/HCPCS: 36415; 80053; 80061; 83036; 83721

== ENCOUNTER 2019-02-10 08:57 | Outpatient (CLI) | payer MEDICARE, OTHER ==
--- NOTE | 2019-02-10 13:12 | XRAY Report ---
Reason: RIGHT HIP PAIN Procedure Date: 02/10/2019 Accession Number: [id number] / [id number] Procedure: WCP - Hip 1 View RT CPT Code: FULL RESULT: EXAM: RIGHT HIP RADIOGRAPHY EXAM DATE: 02/10/2019 09:22 AM. CLINICAL HISTORY: RIGHT HIP PAIN. COMPARISON: HIP W/PELVIS 2-3V LT 07/27/2018 3:03 PM. TECHNIQUE: 2 views. FINDINGS: Bones: No fractures or bone lesion. Joints: No dislocation. The hip joint space is mildly narrowed bilaterally, similar to previous. Stable degenerative change lower lumbar spine. Soft Tissues: Stable neurostimulator. IMPRESSION: No acute findings pelvis and right hip. Stable degenerative changes compared with 07/27/2018. RADIA
== END 2019-02-10 23:59 | disposition home or self-care (01) ==
LOC: DI.WCP 08:57 → EDSTATUS 13:41 → DI.WCP 23:59
PROVIDERS: ATTEND Family Medicine
DX: M16.11 Unilateral primary osteoarthritis, right hip (principal); M47.816 Spondylosis without myelopathy or radiculopathy, lumbar region

== ENCOUNTER 2019-04-27 09:00 | Outpatient (CLI) | payer MEDICARE, OTHER ==
[2019-04-27 13:06] LABS: CALCIUM 10.1 mg/dL (8.5-10.3); CREATININE 0.9 mg/dL (0.4-1.0)
[2019-04-27 16:35] LABS: HEMOGLOBIN A1C 0.67 g/dL; HEMOGLOBIN A1C % 6.2 % (4.6-6.2)
== END 2019-04-27 23:59 | disposition home or self-care (01) ==
LOC: LAB.WCP 09:00
PROVIDERS: ATTEND Physician Assistant Medical
DX: E11.9 Type 2 diabetes mellitus without complications (principal)
CPT/HCPCS: 36415; 80048; 83036

== ENCOUNTER 2019-07-16 10:59 | Emergency (ER) | payer MEDICARE, OTHER ==
--- NOTE | 2019-07-16 12:23 | ED Physician Documentation ---
PD HPI DYSPNEA - Stated complaint Stated Complaint: HIGH BLOOD PRESSURE - Chief complaint Chief Complaint: Cardiac - History obtained from History obtained from: Patient - History of Present Illness Timing - onset: How many days ago (She states her blood pressure is typically good at 1 20-1 30 systolic but has noticed it creeping up slowly over the last week since starting a new antispasmodic urinary medicine. The main listed side effect of the new medicine is hypertension in both mild adverse reactions and also major adverse reactions. She noted her blood pressure up to 180 or 190 on readings this morning and was concerned. She does not have any headache blurred vision dyspnea nor confusion.) Timing - onset during: Light activity Timing - duration: Days Timing - details: Gradual onset, Waxing and waning Inciting event(s): Other (started new med for urinary spasms. She has not noticed any improvement in the urinary incontinence since on the med.) Worsened by: No: Exertion Associated symptoms: No: Chest pain / discomfort, Diaphoresis, Bilateral edema Similar symptoms before: Has not had sx before Review of Systems Eyes: denies: Decreased vision, Photophobia Neurologic: denies: Focal weakness, Numbness, Confused, Altered mental status, Headache PD PAST MEDICAL HISTORY - Past Medical History Past Medical History: Yes Cardiovascular: Hypertension, SC Respiratory: Asthma Neuro: None Endocrine/Autoimmune: HyPOthyroidism GI: GERD : Incontinence HEENT: None Psych: None Musculoskeletal: Osteoarthritis Derm: None - Past Surgical History Past Surgical History: Yes General: Cholecystectomy Ortho: Shoulder arthroplasty /[employer]: Hysterectomy, Oophrectomy Derm: Skin cancer surgery - Present Medications Home Medications: Ambulatory Orders Medication Instructions Recorded Confirmed Cetirizine HCl [Zyrtec] 10 mg PO DAILY 01/10/13 07/04/19 Levothyroxine [Synthroid] 25 mcg PO DAILY 01/10/13 07/04/19 Latanoprost [Xalatan] 1 drops EACHEYE QPM 11/10/15 07/04/19 Atorvastatin [Lipitor] 15 mg PO DAILY 12/20/17 07/04/19 Magnesium 250 mg PO DAILY PRN 12/20/17 07/04/19 Clobetasol Propionate 1 applic TD BID 01/21/18 07/04/19 Lanolin Alcohol/Mo/W.pet/[place] 1 applic TD BID 01/21/18 07/04/19 [Hydrocerin Cream] Aspirin [Adult Aspirin Regimen] 81 mg PO BID 04/12/19 07/04/19 Cholecalciferol (Vitamin D3) 2,000 unit PO DAILY 04/12/19 07/04/19 [Vitamin D3] Flaxseed Oil 1,000 mg PO DAILY 04/12/19 07/04/19 Fluticasone [Flonase] 1 spray KELVIN BID PRN 04/12/19 07/04/19 Ketotifen Fumarate [Alaway] 1 drp EACHEYE BID PRN 04/12/19 07/04/19 Magnesium Hydroxide [Milk of 1 oz PO DAILY PM PRN 04/12/19 07/04/19 Magnesia] Menthol [Biofreeze] 1 applic TOP BID PRN 04/12/19 07/04/19 Naproxen Sodium [Aleve] 220 mg PO BID PRN 04/12/19 07/04/19 Propylene Glycol/Peg 400/Pf 1 each OP BID PRN 04/12/19 07/04/19 [Systane 0.3-0.4% Eye Drops] Sennosides/Docusate Sodium [Stool 6 each PO DAILY PM PRN 04/12/19 07/04/19 Softener-Laxative Tablet] Donepezil HCl 5 mg PO BID 07/04/19 07/04/19 Esomeprazole Magnesium [Nexium] 20 mg PO QPM PRN 07/04/19 07/04/19 Mirabegron [Myrbetriq] 25 mg PO QPM 07/04/19 07/04/19 - Allergies Allergies/Adverse Reactions: Allergies Allergy/AdvReac Type Severity Reaction Status Date / Time alcohol Allergy Intermediate unsure Verified 07/16/19 11:22 chocolate flavor Allergy Unknown Unknown Verified 07/16/19 11:22 Penicillins Allergy Unknown unknown Verified 07/16/19 11:22 Sulfa (Sulfonamide Allergy Unknown unknown Verified 07/16/19 11:22 Antibiotics) adhesive Allergy Unknown Verified 07/16/19 11:22 bee venom protein (honey bee) Allergy Unknown Verified 07/16/19 11:22 coconut Allergy Unknown Verified 07/16/19 11:22 grass pollen Allergy Unknown Verified 07/16/19 11:22 mussels Allergy Unknown Verified 07/16/19 11:22 mustard Allergy Unknown Verified 07/16/19 11:22 oxycodone Allergy Unknown Verified 07/16/19 11:22 pepper (genus Capsicum) Allergy Unknown Verified 07/16/19 11:22 [pepper] pollen extracts Allergy Unknown Verified 07/16/19 11:22 strawberry Allergy Unknown Verified 07/16/19 11:22 walnut Allergy Unknown Verified 07/16/19 11:22 JOHN Inhibitors AdvReac Intermediate dizzy Verified 07/16/19 11:22 ciprofloxacin [From Cipro] AdvReac Intermediate dizzy/light Verified 07/16/19 11:22 headed ciprofloxacin HCl * AdvReac Intermediate dizzy/light Verified 07/16/19 11:22 [From Cipro] headed codeine [Codeine] AdvReac Intermediate gi problems Verified 07/16/19 11:22 midazolam HCl * [From Versed] AdvReac Intermediate short term Verified 07/16/19 11:22 memory loss osorio pepppers Allergy Mild allergy Uncoded 07/11/18 12:48 symptoms flu vaccine AdvReac Intermediate redness Uncoded 07/11/18 12:48 - Social History Does the pt smoke?: No Smoking Status: Never smoker Does the pt drink ETOH?: No Does the pt have substance abuse?: No - Immunizations Immunizations are current?: No Immunizations: TDAP >10years/unknown - POLST Patient has POLST: No PD ED PE NORMAL - Vitals Vital signs reviewed: Yes - General General: Alert and oriented X 3, No acute distress, Well developed/nourished - HEENT HEENT: PERRL, EOMI (fundi normal) - Neck Neck: Supple, no meningeal sign, No adenopathy - Cardiac Cardiac: RRR, No murmur - Respiratory Respiratory: Clear bilaterally - Derm Derm: Normal color, Warm and dry - Neuro 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, chipper feeder 2-12 intact, No motor deficit, No sensory deficit, Normal speech Eye Opening: Spontaneous Motor: Obeys Commands Verbal: Oriented GCS Score: 15 Results - Vitals Vitals: Vital Signs - 24 hr 07/16/19 07/16/19 07/16/19 11:13 11:51 12:58 Temperature 36.2 C L Heart Rate 67 76 64 Respiratory 18 16 16 Rate Blood Pressure 158/107 H 168/72 H 184/78 H O2 Saturation 96 96 96 Oxygen O2 Source Room air PD MEDICAL DECISION MAKING - ED course Complexity details: considered differential (No labs nor treatment needed, corroborated by [facility] policy on asymptomatic HTN in the ED.), d/w patient Departure - Departure Disposition: 01 Home, Self Care Clinical Impression: 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 See how your blood pressure does over the next several days or so. I would anticipate it to drift down after several days off the medicine. The blood pressure reading being elevated is not of concern at self as long as it is temporary. Blood pressure elevation would be concerning if associated with headache, confusion, visual change, shortness of breath or chest pain. Otherwise you should be okay as if your blood pressure is a bit elevated for a few more days. Return if any concerns about it or any symptoms associated with it. Discharge Date/Time: 07/16/19 12:59
[2019-07-16 12:59] VITALS: BP 184/78
== END 2019-07-16 12:59 | disposition home or self-care (01) ==
LOC: ED 10:59
DX: I15.8 Other secondary hypertension (principal); T50.905A Adverse effect of unspecified drugs, medicaments and biological substances, initial encounter
CPT/HCPCS: 99281; 99282

== ENCOUNTER 2019-07-18 11:44 | Emergency (ER) | payer MEDICARE, OTHER ==
[2019-07-18] MEDS ORDERED: ACETAMINOPHEN 500 MG TABLET PO STA (11:49)
--- NOTE | 2019-07-18 12:56 | XRAY Report ---
Reason: fall with wrist pain Procedure Date: 07/18/2019 Accession Number: [id number] / [id number] Procedure: XR - Wrist 3 View RT CPT Code: Final Report FULL RESULT: EXAM: RIGHT WRIST RADIOGRAPHY EXAM DATE: 07/18/2019 12:25 PM. CLINICAL HISTORY: Fall with right wrist pain. COMPARISON: None. TECHNIQUE: 3 views. FINDINGS: Bones: Osteopenic. Mildly impacted transverse distal radial fracture, with minimal dorsal displacement of the distal fracture fragment and no apparent intra-articular extension. Mildly distracted ulnar styloid avulsion fracture. Smooth contour abnormality of the first metacarpal diaphysis likely representing a healed fracture deformity. Joints: Normal alignment. Moderate joint space loss and subchondral sclerosis at the triscaphe joint, mild joint space loss, osteophytosis, and subchondral sclerosis at the first CMC joint, and mild joint space loss and moderate osteophytosis at the first MCP joint, compatible with osteoarthritis. Soft Tissues: Swelling overlying the wrist. IMPRESSION: 1. Mildly impacted minimally displaced transverse distal radial fracture. 2. Mildly distracted ulnar styloid avulsion fracture. 3. Osteoarthritis, most pronounced and moderate at the triscaphe and first MCP joints. RADIA
[2019-07-18] MEDS ORDERED: LIDOCAINE 1%-EPI 1:100000 20 ML MDV SUBQ STA (13:04)
--- NOTE | 2019-07-18 13:07 | CT Report ---
Reason: fall with face injury; head/neck/low back pain Procedure Date: 07/18/2019 Accession Number: [id number] / [id number] Procedure: CT - HEAD WO CPT Code: Final Report FULL RESULT: EXAM: CT HEAD EXAM DATE: 07/18/2019 12:38 PM. CLINICAL HISTORY: Fall with face injury; head/neck/low back pain. COMPARISON: HEAD W/O 07/30/2018 9:27 AM. TECHNIQUE: Multiaxial CT images were obtained from the foramen magnum to the vertex. Reformats: Sagittal and coronal. IV contrast: None. In accordance with CT protocol optimization, one or more of the following dose reduction techniques were utilized for this exam: automated exposure control, adjustment of mA and/or KV based on patient size, or use of iterative reconstructive technique. FINDINGS: Parenchyma: No intraparenchymal hemorrhage. No evidence of mass, midline shift, or CT findings of infarction. Negro-white differentiation is distinct. Moderate diffuse cerebral cortical volume loss. Left frontal periventricular white matter decreased density consistent with chronic small vessel ischemia. Extraaxial Spaces: Normal for age. No subdural or epidural collections identified. Previously described calcification ventral aspect lower left fazal likely secondary to vascular calcification is unchanged as compared to the CT brain 07/30/2018. Ventricles: Normal in size and position. Sinuses and Orbits: Imaged paranasal sinuses, orbits, and mastoids show no significant abnormality. Bones: No evidence of fracture or calvarial defect. Other: Left maxillary contusion and hemorrhage. Negative for left zygoma fracture. Negative for left maxilla fracture. The left maxillary sinus is negative for air-fluid level. Negative for left orbit retro-orbital hematoma or left orbit blowout fracture. IMPRESSION: 1. Left cheek contusion and hemorrhage with no facial bone fracture identified. 2. Negative for intracranial hemorrhage. 3. Stable CT brain as compared to the CT brain 07/30/2018. RADIA
--- NOTE | 2019-07-18 13:07 | CT Report ---
Reason: fall with face injury; head/neck/low back pain Procedure Date: 07/18/2019 Accession Number: [id number] / [id number] Procedure: CT - CERVICAL SPINE WO CPT Code: Final Report FULL RESULT: EXAM: CT CERVICAL SPINE WITHOUT CONTRAST DATE: 07/18/2019 12:38 PM. HISTORY: Ground-level fall today with facial injury and head neck/low back pain. COMPARISONS: HEAD W/O 07/30/2018 9:27 AM CERVICAL SPINE W/O 08/23/2017 4:13 PM. TECHNIQUE: Thin-section axial images were acquired of the cervical spine without contrast. Post-processing: Coronal and sagittal reformats. Other: None. In accordance with CT protocol optimization, one or more of the following dose reduction techniques were utilized for this exam: automated exposure control, adjustment of mA and/or KV based on patient size, or use of iterative reconstructive technique. FINDINGS: Alignment: Minimal right convex curvature centered at C7. No spondylolisthesis. Bones: No fracture or bone lesion. Interspace Levels/Facets: C1-C2: Moderate odontoaxial osteoarthritis. Mild right facet arthropathy. C2-C3: Mild bilateral facet arthropathy, right greater than left. No significant bony central canal stenosis or neural foraminal narrowing. C3-C4: Mild disk height loss. Mild disk osteophyte complex and moderate left and mild right facet arthropathy. Mild left bony neural foraminal narrowing. No significant bony central canal stenosis. C4-C5: Moderate disk height loss. Disk osteophyte complex and moderate right and mild left facet arthropathy with mild bony central canal stenosis and moderate right and mild left bony neural foraminal narrowing. C5-C6: Severe disk height loss. Disk osteophyte complex and mild right facet arthropathy causing moderate bony central canal stenosis and severe bilateral bony neural foraminal narrowing. C6-C7: Moderate to severe disk height loss. Disk osteophyte complex causing moderate bony central canal stenosis and severe bilateral bony neural foraminal narrowing. C7-T1: Moderate left facet arthropathy causing moderate left bony neural foraminal narrowing. No significant bony central canal stenosis. Other: 1.3 cm hypoattenuating posterior right thyroid nodule (); no further imaging is needed per ACR wide paper. Atherosclerotic calcifications in the bilateral carotid bulbs No paravertebral hematoma or edema is evident. The visualized portions of the lung apices are clear. IMPRESSION: 1. Multilevel degenerative disk disease and facet arthropathy, as detailed above, similar appearance compared to 08/23/2017. 2. No acute bony abnormality. RADIA
--- NOTE | 2019-07-18 13:08 | CT Report ---
Reason: fall with face injury; head/neck/low back pain Procedure Date: 07/18/2019 Accession Number: [id number] / [id number] Procedure: CT - LUMBAR SPINE WO CPT Code: Final Report FULL RESULT: EXAM: CT LUMBAR SPINE WITHOUT CONTRAST EXAM DATE: 07/18/2019 12:38 PM. CLINICAL HISTORY: Fall with face injury; head/neck/low back pain. COMPARISONS: LUMBAR SPINE W/O 08/23/2017 4:17 PM. TECHNIQUE: Thin-section axial images were acquired of the lumbar spine from T12 to S1 without contrast. Post-processing: Coronal and sagittal reformats. Other: None. In accordance with CT protocol optimization, one or more of the following dose reduction techniques were utilized for this exam: automated exposure control, adjustment of mA and/or KV based on patient size, or use of iterative reconstructive technique. FINDINGS: Alignment: No evidence of dislocation. There is minimal anterolisthesis of L4 on L5. Bones: Five [id number] lumbar vertebral bodies are present. No fractures or bone lesions. Disk Levels/Facets: T12-L1: Unremarkable. L1-L2: Unremarkable. L2-L3: Mild spinal stenosis secondary to disk bulge and facet arthrosis. L3-L4: Mild spinal stenosis and moderate right neural foramen narrowing secondary to disk bulge and facet arthrosis. L4-L5: There is moderate to severe spinal stenosis and mild bilateral neural foramen narrowing secondary to disk bulge, anterolisthesis, and facet arthrosis. L5-S1: Unremarkable. Musculature: Normal. No fatty atrophy. Other: The visualized retroperitoneum is unremarkable. IMPRESSION: 1. No evidence of acute fracture or dislocation. 2. 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 RADIA
--- NOTE | 2019-07-18 13:43 | ED Physician Documentation ---
PD HPI Fall - Stated complaint Stated Complaint: GLF - Chief complaint Chief Complaint: Trauma Hd/Nk - History obtained from History obtained from: Patient - History of Present Illness Mechanism of injury: Tripped Fall distance: Standing position Where injury occurred: Other (she was at Clinic here in [facility], walking with nurse after a rehab session, and the provider noted her to suddenly trip forward with her cane and slippers, falling face forward. No LOC but seemed dazed few moments. Juancho Lawrence called for assistance. I went to the call and found patient on floor in hallway, face down, with blood around mouth. Minimal tenderness left lower neck. Pain at right wrist. No pain in chest nor abd. We rolled her over logroll and placed collar. EMS called and brought patient to ER. 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 No: Chest, Abdomen Associated symptoms: Amnesia (briefly, does not remember the fall itself.), Neck pain, Other (ongoing bleeding from lip/mouth). No: LOC, AMS, Weakness, Dyspnea, Nausea / vomiting Worsens with: Palpation. No: Movement Contributing factors: No: Anticoagulated Similar symptoms before: Has not had sx before Review of Systems Constitutional: denies: Fever, Chills, Myalgias Nose: reports: Congestion. denies: Rhinorrhea / runny nose Throat: reports: Oral lesions / sores (left upper lip bruising and swelling with laceration/bleeding). denies: Dental pain / toothache Cardiac: denies: Chest pain / pressure Respiratory: denies: Dyspnea, Cough GI: reports: Nausea. 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 Derm: Skin cancer surgery - Present Medications Home Medications: Ambulatory Orders Medication Instructions Recorded Confirmed Cetirizine HCl [Zyrtec] 10 mg PO DAILY 01/10/13 07/04/19 Levothyroxine [Synthroid] 25 mcg PO DAILY 01/10/13 07/04/19 Latanoprost [Xalatan] 1 drops EACHEYE QPM 11/10/15 07/04/19 Atorvastatin [Lipitor] 15 mg PO DAILY 12/20/17 07/04/19 Magnesium 250 mg PO DAILY PRN 12/20/17 07/04/19 Clobetasol Propionate 1 applic TD BID 01/21/18 07/04/19 Lanolin Alcohol/Mo/W.pet/[place] 1 applic TD BID 01/21/18 07/04/19 [Hydrocerin Cream] Aspirin [Adult Aspirin Regimen] 81 mg PO BID 04/12/19 07/04/19 Cholecalciferol (Vitamin D3) 2,000 unit PO DAILY 04/12/19 07/04/19 [Vitamin D3] Flaxseed Oil 1,000 mg PO DAILY 04/12/19 07/04/19 Fluticasone [Flonase] 1 spray KELVIN BID PRN 04/12/19 07/04/19 Ketotifen Fumarate [Alaway] 1 drp EACHEYE BID PRN 04/12/19 07/04/19 Magnesium Hydroxide [Milk of 1 oz PO DAILY PM PRN 04/12/19 07/04/19 Magnesia] Menthol [Biofreeze] 1 applic TOP BID PRN 04/12/19 07/04/19 Naproxen Sodium [Aleve] 220 mg PO BID PRN 04/12/19 07/04/19 Propylene Glycol/Peg 400/Pf 1 each OP BID PRN 04/12/19 07/04/19 [Systane 0.3-0.4% Eye Drops] Sennosides/Docusate Sodium [Stool 6 each PO DAILY PM PRN 04/12/19 07/04/19 Softener-Laxative Tablet] Donepezil HCl 5 mg PO BID 07/04/19 07/04/19 Esomeprazole Magnesium [Nexium] 20 mg PO QPM PRN 07/04/19 07/04/19 Mirabegron [Myrbetriq] 25 mg PO QPM 07/04/19 07/04/19 - Allergies Allergies/Adverse Reactions: Allergies Allergy/AdvReac Type Severity Reaction Status Date / Time alcohol Allergy Intermediate unsure Verified 07/16/19 11:22 chocolate flavor Allergy Unknown Unknown Verified 07/16/19 11:22 Penicillins Allergy Unknown unknown Verified 07/16/19 11:22 Sulfa (Sulfonamide Allergy Unknown unknown Verified 07/16/19 11:22 Antibiotics) adhesive Allergy Unknown Verified 07/16/19 11:22 bee venom protein (honey bee) Allergy Unknown Verified 07/16/19 11:22 coconut Allergy Unknown Verified 07/16/19 11:22 grass pollen Allergy Unknown Verified 07/16/19 11:22 mussels Allergy Unknown Verified 07/16/19 11:22 mustard Allergy Unknown Verified 07/16/19 11:22 oxycodone Allergy Unknown Verified 07/16/19 11:22 pepper (genus Capsicum) Allergy Unknown Verified 07/16/19 11:22 [pepper] pollen extracts Allergy Unknown Verified 07/16/19 11:22 strawberry Allergy Unknown Verified 07/16/19 11:22 walnut Allergy Unknown Verified 07/16/19 11:22 JOHN Inhibitors AdvReac Intermediate dizzy Verified 07/16/19 11:22 ciprofloxacin [From Cipro] AdvReac Intermediate dizzy/light Verified 07/16/19 11:22 headed ciprofloxacin HCl * AdvReac Intermediate dizzy/light Verified 07/16/19 11:22 [From Cipro] headed codeine [Codeine] AdvReac Intermediate gi problems Verified 07/16/19 11:22 midazolam HCl * [From Versed] AdvReac Intermediate short term Verified 07/16/19 11:22 memory loss osorio pepppers Allergy Mild allergy Uncoded 07/11/18 12:48 symptoms flu vaccine AdvReac Intermediate redness Uncoded 07/11/18 12:48 - Social History Does the pt smoke?: No Smoking Status: Never smoker Does the pt drink ETOH?: No Does the pt have substance abuse?: No - Immunizations Immunizations are current?: No Immunizations: TDAP >10years/unknown - POLST Patient has POLST: No PD ED PE NORMAL - Vitals Vital signs reviewed: Yes - General General: Alert and oriented X 3, Well developed/nourished - HEENT HEENT: Pharynx benign, Dentition benign, Other (left upper lip with small outer lac 1 cm. bruising and swelling upper lip left. There is inner lac 1 cm but ongoing dripping bleeding from that spot. No FB. ) - Neck Neck: Supple, no meningeal sign, No bony TTP (some mild tenderness left lower muscular area. ), No adenopathy - Cardiac Cardiac: RRR, No murmur - Respiratory Respiratory: Clear bilaterally - Abdomen Abdomen: Soft, Non tender - Back Back: No CVA TTP, Other (lower back with some tenderness across lumbar area without focal midline. ) - Derm Derm: Normal color, Warm and dry - Extremities Extremities: Other (right wrist with swelling, tender, mild deformity c/w nondisplaced fracture. 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, No motor deficit, No sensory deficit, Normal speech Eye Opening: Spontaneous Motor: Obeys Commands Verbal: Oriented GCS Score: 15 Results - Vitals Vitals: Vital Signs - 24 hr 07/18/19 07/18/19 07/18/19 11:44 12:11 12:38 Heart Rate 73 70 77 Respiratory 16 20 20 Rate Blood Pressure 162/102 H 182/83 H 168/84 H O2 Saturation 95 94 96 07/18/19 07/18/19 07/18/19 13:00 13:30 14:00 Heart Rate 74 74 68 Respiratory 20 22 16 Rate Blood Pressure 123/100 H 145/75 H 159/72 H O2 Saturation 96 95 96 07/18/19 07/18/19 14:30 15:00 Heart Rate 73 69 Respiratory 20 19 Rate Blood Pressure 139/74 H 125/67 O2 Saturation 96 95 Oxygen O2 Source Room air - Labs Labs: Laboratory Tests 07/18/19 07/18/19 07/18/19 13:56 13:56 13:56 WBC 9.7 RBC 4.86 Hgb 14.0 Hct 42.9 MCV 88.3 MCH 28.8 MCHC 32.6 RDW 12.8 Plt Count 235 MPV 9.2 Neut # (Auto) 7.4 H Lymph # (Auto) 1.3 L [place] # (Auto) 0.7 Eos # (Auto) 0.1 Baso # (Auto) 0.1 Absolute Nucleated RBC 0.00 Nucleated RBC % 0.0 PT 11.9 INR 1.0 APTT 33.8 H Sodium 137 Potassium 4.4 Chloride 105 Carbon Dioxide 24 Anion Gap 8.0 BUN 24 H Creatinine 0.9 Estimated GFR (MDRD) 59 L Glucose 134 H Calcium 9.8 Magnesium 2.2 Total Bilirubin 0.4 AST 22 ALT 23 Alkaline Phosphatase 98 Total Protein 6.7 Albumin 3.9 Globulin 2.8 Albumin/Globulin Ratio 1.4 Lipase 23 - Rads (name of study) right wrist Radiology: Prelim report reviewed (nondisplaced distal radius fracture. Mild impaction. ), See rad report head CT Radiology: Prelim report reviewed (no acute), See rad report neck and lumbar CTs Radiology: Prelim report reviewed (arthritic changes. No fractures seen. ), See rad report Procedures - Laceration (location) left upper inner lip Length in cm: 1 Wound type: Irregular, Clean Neurovascular status: Sensory intact Anesthesia: Lidocaine 1% Wound Preparation: Irrigated copiously NS, Wound explored, To the base. No: FB identified Deep layer closure: Vicryl (placed purse string type suture just at mucosal edges of lac. Bleeding stopped.) - Splint (location) right wrist volar Splint applied by: Tech Type of splint: Fiberglass, Short arm Other: Patient tolerated well, No complications, Neurovascular intact, Sling provided PD MEDICAL DECISION MAKING - ED course Complexity details: considered differential (she was at Clinic here in [facility], walking with nurse after a rehab session, and the provider noted her to suddenly trip forward with her cane and slippers, falling face forward. No LOC but seemed dazed few moments. Juancho Lawrence called for assistance. I went to the call and found patient on floor in hallway, face down, with blood around mouth. Minimal tenderness left lower neck. Pain at right wrist. No pain in chest nor abd. We rolled her over logroll and placed collar. EMS called and brought patient to ER. She was not sure of event at first, but then remembers tripped on shoes/slippers. ), d/w patient Departure - Departure Disposition: 01 Home, Self Care Clinical Impression: Fall from slip, trip, or stumble Qualifiers: Encounter type: initial encounter Qualified Code(s): W01.0XXA - Fall on same level from slipping, tripping and stumbling without subsequent striking against object, initial encounter Facial contusion Qualifiers: Encounter type: initial encounter Qualified Code(s): S00.83XA - Contusion of other part of head, initial encounter Lip laceration Qualifiers: Encounter type: initial encounter Qualified Code(s): S01.511A - Laceration without foreign body of lip, initial encounter Wrist fracture Qualifiers: Encounter type: initial encounter Fracture type: closed Laterality: right Qualified Code(s): S62.101A - Fracture of unspecified carpal bone, right wrist, initial encounter for closed fracture Condition: Stable Record reviewed to determine appropriate education?: Yes Instructions: ED Fx Colles Wrist No Redu Requ, ED Laceration Mouth Follow-Up: Kourtney Baer PA-C [Primary Care Provider] - Félix Rose MD [Provider Admit Priv/Credential] - Comments: Keep the wrist splint in place. Rest elevate and ice the wrist often to reduce swelling. Do some cool towels for the lip to reduce the swelling as well. Follow-up with your primary care in about a week for reevaluation of the lip. The sutures are absorbable but might need to be removed anyway at that point if there bothering the lip. Cleanse the lip 2-3 times a day with just water to remove any debris. Tylenol or ibuprofen as needed for pains. Follow-up with orthopedics in about a week for reevaluation of the wrist and likely changing to a cast. Discharge Date/Time: 07/18/19 15:25
[2019-07-18 13:59] LABS: BASOPHILS # (AUTO) 0.1 10^3/uL (0.0-0.1); BASOPHILS % (AUTO) 0.6 %; EOSINOPHILS # (AUTO) 0.1 10^3/uL (0.0-0.7); EOSINOPHILS % (AUTO) 0.6 %; LYMPHOCYTES # (AUTO) 1.3 10^3/uL (1.5-3.5); LYMPHOCYTES % (AUTO) 13.6 %; MEAN CORPUSCULAR HEMOGLOBIN 28.8 pg (27.0-31.0); MEAN CORPUSCULAR HGB CONC 32.6 g/dL (32.0-36.0); MEAN CORPUSCULAR VOLUME 88.3 fL (81.0-99.0); MEAN PLATELET VOLUME 9.2 fL (7.9-10.8); MONOCYTES # (AUTO) 0.7 10^3/uL (0.0-1.0); MONOCYTES % (AUTO) 7.6 %; NEUTROPHILS # (AUTO) 7.4 10^3/uL (1.5-6.6); NEUTROPHILS % (AUTO) 76.9 %; PLT - PLATELET COUNT 235 10^3/uL (130-450); RED BLOOD COUNT 4.86 10^6/uL (4.20-5.40); RED CELL DISTRIBUTION WIDTH 12.8 % (12.0-15.0); WHITE BLOOD COUNT 9.7 x10^3/uL (4.8-10.8)
[2019-07-18 14:05] LABS: PT - PROTHROMBIN TIME 11.9 secs (9.9-12.6)
[2019-07-18 14:12] LABS: ALBUMIN 3.9 g/dL (3.2-5.5); ALBUMIN/GLOBULIN RATIO 1.4 (1.0-2.2); BILIRUBIN,TOTAL 0.4 mg/dL (0.2-1.0); CALCIUM 9.8 mg/dL (8.5-10.3); CREATININE 0.9 mg/dL (0.4-1.0); MAGNESIUM 2.2 mg/dL (1.7-2.8); PARTIAL THROMBOPLASTIN TIME 33.8 secs (24.9-33.3); TOTAL PROTEIN 6.7 g/dL (6.7-8.2)
[2019-07-18 15:02] VITALS: BP 125/67
== END 2019-07-18 15:25 | disposition home or self-care (01) ==
LOC: ED 11:44
DX: S52.501A Unspecified fracture of the lower end of right radius, initial encounter for closed fracture (principal); S52.614A Nondisplaced fracture of right ulna styloid process, initial encounter for closed fracture; S01.511A Laceration without foreign body of lip, initial encounter; S00.83XA Contusion of other part of head, initial encounter; W01.0XXA Fall on same level from slipping, tripping and stumbling without subsequent striking against object, initial encounter; Y93.01 Activity, walking, marching and hiking; Y92.238 Other place in hospital as the place of occurrence of the external cause; M19.031 Primary osteoarthritis, right wrist; M47.812 Spondylosis without myelopathy or radiculopathy, cervical region; M50.321 Other cervical disc degeneration at C4-C5 level; M51.36 Other intervertebral disc degeneration, lumbar region; M48.061 Spinal stenosis, lumbar region without neurogenic claudication; I10 Essential (primary) hypertension; Z79.82 Long term (current) use of aspirin
CPT/HCPCS: 12011; 29125; 36415; 70450; 72125; 72131; 80053; 83690; 83735; 85025; 85610; 85730; 93005; 99283; 99284

== ENCOUNTER 2019-07-21 22:27 | Emergency (ER) | payer MEDICARE, OTHER ==
[2019-07-21 22:49] VITALS: BP 144/93
--- NOTE | 2019-07-21 23:06 | ED Physician Documentation ---
PD HPI UPPER EXT INJURY - Stated complaint Stated Complaint: RT ARM INJ F/U - FINGER NUMBNESS - Chief complaint Chief Complaint: Ext Problem - History obtained from History obtained from: Patient - History of Present Illness Location: Right (Recent fall with both bone forearm fracture. Today she feels like the splint is too tight and she is developed paresthesias in the fingers.) Review of Systems Constitutional: reports: Reviewed and negative Eyes: reports: Reviewed and negative Ears: reports: Reviewed and negative Nose: reports: Reviewed and negative Throat: reports: Reviewed and negative PD PAST MEDICAL HISTORY - Past Medical History Past Medical History: Yes Cardiovascular: Hypertension, [place] Respiratory: Asthma Neuro: None Endocrine/Autoimmune: HyPOthyroidism GI: GERD : Incontinence HEENT: None Psych: None Musculoskeletal: Osteoarthritis Derm: None - Past Surgical History Past Surgical History: Yes General: Cholecystectomy 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, 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 Derm: Skin cancer surgery - Present Medications Home Medications: Ambulatory Orders Medication Instructions Recorded Confirmed Cetirizine HCl [Zyrtec] 10 mg PO DAILY 01/10/13 07/21/19 Levothyroxine [Synthroid] 25 mcg PO DAILY 01/10/13 07/21/19 Latanoprost [Xalatan] 1 drops EACHEYE QPM 11/10/15 07/21/19 Atorvastatin [Lipitor] 15 mg PO DAILY 12/20/17 07/21/19 Magnesium 250 mg PO DAILY PRN 12/20/17 07/21/19 Clobetasol Propionate 1 applic TD BID 01/21/18 07/21/19 Lanolin Alcohol/Mo/W.pet/[place] 1 applic TD BID 01/21/18 07/21/19 [Hydrocerin Cream] Aspirin [Adult Aspirin Regimen] 81 mg PO BID 04/12/19 07/21/19 Cholecalciferol (Vitamin D3) 2,000 unit PO DAILY 04/12/19 07/21/19 [Vitamin D3] Flaxseed Oil 1,000 mg PO DAILY 04/12/19 07/21/19 Fluticasone [Flonase] 1 spray KELVIN BID PRN 04/12/19 07/21/19 Ketotifen Fumarate [Alaway] 1 drp EACHEYE BID PRN 04/12/19 07/21/19 Magnesium Hydroxide [Milk of 1 oz PO DAILY PM PRN 04/12/19 07/21/19 Magnesia] Menthol [Biofreeze] 1 applic TOP BID PRN 04/12/19 07/21/19 Naproxen Sodium [Aleve] 220 mg PO BID PRN 04/12/19 07/21/19 Propylene Glycol/Peg 400/Pf 1 each OP BID PRN 04/12/19 07/21/19 [Systane 0.3-0.4% Eye Drops] Sennosides/Docusate Sodium [Stool 6 each PO DAILY PM PRN 04/12/19 07/21/19 Softener-Laxative Tablet] Donepezil HCl 5 mg PO BID 07/04/19 07/21/19 Esomeprazole Magnesium [Nexium] 20 mg PO QPM PRN 07/04/19 07/21/19 Mirabegron [Myrbetriq] 25 mg PO QPM 07/04/19 07/21/19 - Allergies Allergies/Adverse Reactions: Allergies Allergy/AdvReac Type Severity Reaction Status Date / Time alcohol Allergy Intermediate unsure Verified 07/21/19 22:48 chocolate flavor Allergy Unknown Unknown Verified 07/21/19 22:48 Penicillins Allergy Unknown unknown Verified 07/21/19 22:48 Sulfa (Sulfonamide Allergy Unknown unknown Verified 07/21/19 22:48 Antibiotics) adhesive Allergy Unknown Verified 07/21/19 22:48 bee venom protein (honey bee) Allergy Unknown Verified 07/21/19 22:48 coconut Allergy Unknown Verified 07/21/19 22:48 grass pollen Allergy Unknown Verified 07/21/19 22:48 mussels Allergy Unknown Verified 07/21/19 22:48 mustard Allergy Unknown Verified 07/21/19 22:48 oxycodone Allergy Unknown Verified 07/21/19 22:48 pepper (genus Capsicum) Allergy Unknown Verified 07/21/19 22:48 [pepper] pollen extracts Allergy Unknown Verified 07/21/19 22:48 strawberry Allergy Unknown Verified 07/21/19 22:48 walnut Allergy Unknown Verified 07/21/19 22:48 TERRELL Inhibitors AdvReac Intermediate dizzy Verified 07/21/19 22:48 ciprofloxacin [From Cipro] AdvReac Intermediate dizzy/light Verified 07/21/19 22:48 headed ciprofloxacin HCl * AdvReac Intermediate dizzy/light Verified 07/21/19 22:48 [From Cipro] headed codeine [Codeine] AdvReac Intermediate gi problems Verified 07/21/19 22:48 midazolam HCl * [From Versed] AdvReac Intermediate short term Verified 07/21/19 22:48 memory loss osorio pepppers Allergy Mild allergy Uncoded 07/21/19 22:48 symptoms flu vaccine AdvReac Intermediate redness Uncoded 07/21/19 22:48 - Social History Does the pt smoke?: No Smoking Status: Never smoker Does the pt drink ETOH?: No Does the pt have substance abuse?: No - Immunizations Immunizations are current?: No Immunizations: TDAP >10years/unknown - POLST Patient has POLST: No PD ED PE NORMAL - Vitals Vital signs reviewed: Yes - General General: Alert and oriented X 3, No acute distress - HEENT HEENT: Other (Extensive bruising on the left side of the face.) - Extremities Extremities: Other (There is a splint on the right arm, during examination the [place] wrap overlying it was removed and rewrapped looser with resolution of her pa resthesias. Normal cap refill in all the fingers.) - Neuro 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, Normal speech Results - Vitals Vitals: Vital Signs - 24 hr 07/21/19 22:40 Temperature 36.5 C Heart Rate 64 Respiratory 18 Rate Blood Pressure 144/93 H O2 Saturation 97 Oxygen O2 Source Room air Departure - Departure Disposition: 01 Home, Self Care Clinical Impression: Tight cast Condition: Good Record reviewed to determine appropriate education?: Yes Comments: Follow-up with the orthopedic surgeon as scheduled on Wednesday, return for new or worsening symptoms.
== END 2019-07-21 23:15 | disposition home or self-care (01) ==
LOC: ED 22:27
DX: R20.2 Paresthesia of skin (principal); Z48.00 Encounter for change or removal of nonsurgical wound dressing; Z46.89 Encounter for fitting and adjustment of other specified devices; I10 Essential (primary) hypertension
CPT/HCPCS: 99281

== ENCOUNTER 2019-08-18 09:44 | Outpatient (CLI) | payer MEDICARE, OTHER ==
--- NOTE | 2019-08-21 10:24 | Mammography Report ---
Reason: ROUTINE MAMMO Procedure Date: 08/18/2019 Accession Number: [id number] / [id number] Procedure: DEVIN - Screening Mammo Dig Bilat CPT Code: Final Report FULL RESULT: EXAM: Screening Mammo Dig Bilat DATE: 08/18/2019 10:14 AM CLINICAL HISTORY: Screening encounter. TECHNIQUE: (B) - Bilateral CC and MLO views were obtained. COMPARISON: 08/30/2017 through 06/12/2010. PARENCHYMAL PATTERN: (A) - The breast(s) demonstrate(s) scattered fibroglandular densities. FINDINGS: There are no suspicious masses, calcifications, or areas of distortion. IMPRESSION: Negative examination. BI-RADS category 1. RECOMMENDATION: (ANNUAL) - Recommend routine annual screening mammography. BI-RADS CATEGORY: (1) - Negative. STANDARD QUALIFYING STATEMENTS: 1. This examination was not reviewed with the aid of Computer-Aided Detection (CAD). 2. A negative or benign imaging report should not preclude biopsy if clinically suspicious findings are present. 3. Dense breasts may obscure an underlying neoplasm. 4. This examination was reviewed without the aid of 3D breast imaging (tomosynthesis).
== END 2019-08-18 09:45 | disposition home or self-care (01) ==
LOC: DI 09:44
DX: Z12.31 Encounter for screening mammogram for malignant neoplasm of breast (principal)
CPT/HCPCS: 77067

== ENCOUNTER 2019-10-29 09:24 | Outpatient (CLI) | payer MEDICARE, OTHER ==
[2019-10-29 10:23] LABS: BUN - BLOOD UREA NITROGEN 26 mg/dL (6-20); CALCIUM 9.8 mg/dL (8.5-10.3); CARBON DIOXIDE - CO2 25 mmol/L (21-32); CHLORIDE 104 mmol/L (101-111); CHOL/HDL RATIO 3.4 (<4.4); CHOLESTEROL 148 mg/dL; CREATININE 0.8 mg/dL (0.4-1.0); GLUCOSE 130 mg/dL (70-100); HDL CHOLESTEROL 43 mg/dL; LDL CHOLESTEROL,CALCULATED 86 mg/dL; SODIUM 138 mmol/L (135-145); VLDL CHOLESTEROL 19 mg/dL
[2019-10-29 10:31] LABS: HEMOGLOBIN A1C 0.72 g/dL; HEMOGLOBIN A1C % 6.5 % (4.6-6.2)
== END 2019-10-29 09:25 | disposition home or self-care (01) ==
LOC: LAB 09:24
PROVIDERS: ATTEND Physician Assistant Medical
DX: E11.9 Type 2 diabetes mellitus without complications (principal)
CPT/HCPCS: 36415; 80048; 80061; 83036; 83721; 84443

== ENCOUNTER 2020-02-09 09:52 | Outpatient (CLI) | payer MEDICARE, OTHER ==
[2020-02-09 10:28] LABS: CALCIUM 10.5 mg/dL (8.5-10.3)
== END 2020-02-09 09:53 | disposition home or self-care (01) ==
LOC: LAB 09:52
PROVIDERS: ATTEND Internal Medicine Cardiovascular Disease
DX: I10 Essential (primary) hypertension (principal)
CPT/HCPCS: 36415; 80048

== ENCOUNTER 2020-03-02 01:03 | Outpatient (CLI) | payer MEDICARE, OTHER | END 2020-03-02 01:04 | disposition critical access hospital (66) | LOC: EMS 01:03 | PROVIDERS: ATTEND Surgery | DX: R41.0 Disorientation, unspecified (principal); W19.XXXA Unspecified fall, initial encounter; Y92.008 Other place in unspecified non-institutional (private) residence as the place of occurrence of the external cause | CPT/HCPCS: A0425; A0427 ==

== ENCOUNTER 2020-03-02 01:11 | Emergency (ER) | payer MEDICARE, OTHER ==
--- NOTE | 2020-03-02 01:14 | ED Physician Documentation ---
PD HPI Fall - Stated complaint Stated Complaint: GLF - History obtained from History obtained from: Patient (limited due to dementia), Family (spouse), EMS - History of Present Illness Mechanism of injury: Unknown Fall distance: Unknown Where injury occurred: Home Contributing factors: No: Anticoagulated, Intoxicated Similar symptoms before: Has not had sx before Recently seen: Not recently seen - Additional information Additional information: BIBA. Patient unable to contribute reliably to HPI/ROS due to dementia. Patient's found patient in backyard, face down on the ground. She had been missing from inside the house for approximately 30 minutes when he found h er this way. She was awake and baseline mental status when he found her. Unclear if she fell. Medics obtained PO temperature of 89.6 and finger stick blood sugar of 113. 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 Unable to obtain: Dementia PD PAST MEDICAL HISTORY - Past Medical History Past Medical History: Yes Cardiovascular: High cholesterol Neuro: Dementia Endocrine/Autoimmune: HyPOthyroidism - Present Medications Home Medications: Ambulatory Orders Medication Instructions Recorded Confirmed Levothyroxine [Synthroid] 25 mcg PO DAILY 01/10/13 03/02/20 Latanoprost [Xalatan] 1 drops EACHEYE QPM 11/10/15 03/02/20 Atorvastatin [Lipitor] 15 mg PO DAILY 12/20/17 03/02/20 Magnesium 250 mg PO DAILY PRN 12/20/17 03/02/20 Clobetasol Propionate 1 applic TD BID 01/21/18 03/02/20 Aspirin [Adult Aspirin Regimen] 81 mg PO BID 04/12/19 03/02/20 Cholecalciferol (Vitamin D3) 2,000 unit PO DAILY 04/12/19 03/02/20 [Vitamin D3] Flaxseed Oil 1,000 mg PO DAILY 04/12/19 03/02/20 Fluticasone [Flonase] 1 spray KELVIN BID PRN 04/12/19 03/02/20 Ketotifen Fumarate [Alaway] 1 drp EACHEYE BID PRN 04/12/19 03/02/20 Menthol [Biofreeze] 1 applic TOP BID PRN 04/12/19 03/02/20 Naproxen Sodium [Aleve] 220 mg PO BID PRN 04/12/19 03/02/20 Esomeprazole Magnesium [Nexium] 20 mg PO QPM PRN 07/04/19 03/02/20 - Allergies Allergies/Adverse Reactions: Allergies Allergy/AdvReac Type Severity Reaction Status Date / Time alcohol Allergy Intermediate unsure Verified 03/02/20 01:24 chocolate flavor Allergy Unknown Unknown Verified 03/02/20 01:24 Penicillins Allergy Unknown unknown Verified 03/02/20 01:24 Sulfa (Sulfonamide Allergy Unknown unknown Verified 03/02/20 01:24 Antibiotics) adhesive Allergy Unknown Verified 03/02/20 01:24 bee venom protein (honey bee) Allergy Unknown Verified 03/02/20 01:24 coconut Allergy Unknown Verified 03/02/20 01:24 grass pollen Allergy Unknown Verified 03/02/20 01:24 mussels Allergy Unknown Verified 03/02/20 01:24 mustard Allergy Unknown Verified 03/02/20 01:24 oxycodone Allergy Unknown Verified 03/02/20 01:24 pepper (genus Capsicum) Allergy Unknown Verified 03/02/20 01:24 [pepper] pollen extracts Allergy Unknown Verified 03/02/20 01:24 strawberry Allergy Unknown Verified 03/02/20 01:24 Tetanus Vaccines and Toxoid Allergy Unknown Verified 03/02/20 01:37 walnut Allergy Unknown Verified 03/02/20 01:24 JOHN Inhibitors AdvReac Intermediate dizzy Verified 03/02/20 01:24 ciprofloxacin [From Cipro] AdvReac Intermediate dizzy/light Verified 03/02/20 01:24 headed ciprofloxacin HCl * AdvReac Intermediate dizzy/light Verified 03/02/20 01:24 [From Cipro] headed codeine [Codeine] AdvReac Intermediate gi problems Verified 03/02/20 01:24 midazolam HCl * [From Versed] AdvReac Intermediate short term Verified 03/02/20 01:24 memory loss osorio pepppers Allergy Mild allergy Uncoded 03/02/20 01:24 symptoms flu vaccine AdvReac Intermediate redness Uncoded 03/02/20 01:24 - Living Situation Living Situation: reports: With spouse/s.o. Living Arrangement: reports: At home PD ED PE NORMAL - Vitals Vital signs reviewed: Yes - General General: No acute distress, Well developed/nourished, Other (awake, alert, confused (says she was found by her mother in the front yard, for example)) - HEENT HEENT: Atraumatic, PERRL, EOMI - Neck Neck: No bony TTP - Cardiac Cardiac: RRR, No murmur - Respiratory Respiratory: No respiratory distress, Clear bilaterally - Abdomen Abdomen: Soft, Non tender - Back Back: No spinal TTP - Derm Derm: Normal color, Warm and dry - Extremities Extremities: No tenderness to palpate, Normal ROM s pain, No edema - Neuro Neuro: No motor deficit, No sensory deficit, Normal speech Eye Opening: Spontaneous Motor: Obeys Commands Verbal: Confused GCS Score: 14 - Free text exam Free text exam: tenderness along left clavicle, midshaft without obvious deformity Results - Vitals Vitals: Vital Signs - 24 hr 03/02/20 03/02/20 03/02/20 01:11 01:25 03:17 Temperature 36.4 C L 36.4 C L Heart Rate 90 90 79 Respiratory 26 H 26 H 29 H Rate Blood Pressure 157/115 H 157/115 H 136/75 H O2 Saturation 96 96 98 03/02/20 03/02/20 05:03 05:31 Temperature 36.5 C Heart Rate 81 Respiratory 25 H Rate Blood Pressure 152/82 H O2 Saturation 94 Oxygen O2 Source Room air - Labs Labs: Laboratory Tests 03/02/20 03/02/20 03/02/20 01:30 01:30 04:25 WBC 9.4 RBC 4.99 Hgb 14.1 Hct 43.3 MCV 86.8 MCH 28.3 MCHC 32.6 RDW 13.5 Plt Count 210 MPV 9.4 Neut # (Auto) 7.2 H Lymph # (Auto) 1.3 L [place] # (Auto) 0.7 Eos # (Auto) 0.0 Baso # (Auto) 0.1 Absolute Nucleated RBC 0.00 Nucleated RBC % 0.0 Sodium 140 Potassium 4.1 Chloride 106 Carbon Dioxide 24 Anion Gap 10.0 BUN 29 H Creatinine 0.8 Estimated GFR (MDRD) 68 L Glucose 129 H Calcium 10.1 Total Bilirubin 0.8 AST 17 ALT 19 Alkaline Phosphatase 99 Total Protein 7.0 Albumin 4.0 Globulin 3.0 Albumin/Globulin Ratio 1.3 Lipase 19 L Urine Color YELLOW Urine Clarity CLEAR Urine pH 5.0 Ur Specific [place] >=1.030 H Urine Protein NEGATIVE Urine Glucose (UA) NEGATIVE Urine Ketones 15 H Urine Occult Blood NEGATIVE Urine Nitrite NEGATIVE Urine Bilirubin NEGATIVE Urine Urobilinogen 0.2 (NORMAL) Ur Leukocyte Esterase NEGATIVE Ur Microscopic Review NOT INDICATED Urine Culture Comments NOT INDICATED - Rads (name of study) CT head Radiology: Prelim report reviewed, See rad report CT cervical spine Radiology: Prelim report reviewed, See rad report chest xray Radiology: Prelim report reviewed, See rad report PD MEDICAL DECISION MAKING - ED course Complexity details: reviewed results, re-evaluated patient, considered differential, d/w patient, d/w family Departure - Departure Disposition: 01 Home, Self Care Clinical Impression: Fall, Dementia Condition: Good Instructions: ED Dementia Caregiver Support, ED Fall Uncertain Cause Follow-Up: Kourtney Baer PA-C [Primary Care Provider] - Discharge Date/Time: 03/02/20 06:01
[2020-03-02] MEDS ORDERED: SODIUM CHLORIDE 0.9% 1,000 ML IV STA (01:27)
[2020-03-02 01:37] LABS: BASOPHILS # (AUTO) 0.1 10^3/uL (0.0-0.1); BASOPHILS % (AUTO) 0.5 %; EOSINOPHILS % (AUTO) 0.4 %; HGB - HEMOGLOBIN 14.1 g/dL (12.0-16.0); LYMPHOCYTES # (AUTO) 1.3 10^3/uL (1.5-3.5); MEAN CORPUSCULAR HEMOGLOBIN 28.3 pg (27.0-31.0); MEAN CORPUSCULAR HGB CONC 32.6 g/dL (32.0-36.0); MEAN CORPUSCULAR VOLUME 86.8 fL (81.0-99.0); MEAN PLATELET VOLUME 9.4 fL (7.9-10.8); MONOCYTES # (AUTO) 0.7 10^3/uL (0.0-1.0); MONOCYTES % (AUTO) 7.2 %; NEUTROPHILS # (AUTO) 7.2 10^3/uL (1.5-6.6); NEUTROPHILS % (AUTO) 77.3 %; PLT - PLATELET COUNT 210 10^3/uL (130-450); RED BLOOD COUNT 4.99 10^6/uL (4.20-5.40); RED CELL DISTRIBUTION WIDTH 13.5 % (12.0-15.0); WHITE BLOOD COUNT 9.4 x10^3/uL (4.8-10.8)
[2020-03-02 01:46] LABS: ALBUMIN/GLOBULIN RATIO 1.3 (1.0-2.2); BILIRUBIN,TOTAL 0.8 mg/dL (0.2-1.0); CALCIUM 10.1 mg/dL (8.5-10.3); CREATININE 0.8 mg/dL (0.4-1.0)
[2020-03-02 05:04] VITALS: BP 152/82
[2020-03-02 05:27] LABS: BILIRUBIN,URINE NEGATIVE (NEGATIVE); GLUCOSE, URINE (UA) NEGATIVE (NEGATIVE); KETONES,URINE (UA) 15 mg/dL (NEGATIVE); LEUKOCYTE ESTERASE, URINE NEGATIVE (NEGATIVE); NITRITE,URINE NEGATIVE (NEGATIVE); OCCULT BLOOD,URINE NEGATIVE (NEGATIVE); PROTEIN,URINE NEGATIVE (NEGATIVE); UROBILINOGEN,URINE 0.2 (NORMAL) E.U./dL (NORMAL)
[2020-03-02 05:28] LABS: CLARITY,URINE CLEAR (CLEAR)
--- NOTE | 2020-03-02 07:16 | XRAY Report ---
PROCEDURE: Chest 1 View X-Ray INDICATIONS: chest pain TECHNIQUE: One view of the chest was acquired. COMPARISON: 01/10/2013 FINDINGS: Surgical changes and devices: Status post right shoulder arthroplasty. Lungs and pleura: No pleural effusions or pneumothorax. Stable subcentimeter calcified granuloma in the left lower lung. Lungs are otherwise clear. Stable eventration of the right hemidiaphragm. Mediastinum: Mediastinal contours appear stable. Heart size is normal. Bones and chest wall: No suspicious bony lesions. Overlying soft tissues appear unremarkable. IMPRESSION: Stable examination of the chest without acute cardiopulmonary abnormalities. No significant discrepancy with initial interpretation by overnight radiologist. Reviewed by: Gallo Lange MD on 03/02/2020 7:15 AM PDT Approved by: Gallo Lange MD on 03/02/2020 7:15 AM PDT Station ID: [id number]
--- NOTE | 2020-03-02 07:24 | CT Report ---
PROCEDURE: HEAD WO INDICATIONS: found on ground, face-down TECHNIQUE: Noncontrast 4.5 mm thick angled axial sections acquired from the foramen magnum to the vertex. For r adiation dose reduction, the following was used: automated exposure control, adjustment of mA and/or kV according to patient size. COMPARISON: 07/18/2019. FINDINGS: Image quality: Excellent. CSF spaces: Basal cisterns are patent. Chronic appearing left subdural hematoma measuring approxima tely 3 mm in thickness. No mass effect or midline shift of structures. No other suspicious extra-axia l fluid collections. Ventricles are stable in size and shape. Brain: No midline shift. No acute intracranial masses or hemorrhage. Negro-white matter interface i s normal. There are age-related senescent changes with diffuse cortical volume loss. There are bilate ral periventricular and deep white matter hypoattenuation compatible with sequela of chronic small ve ssel ischemic disease. Skull and face: Calvarium and visualized facial bones are intact, without suspicious lesions. Sinuses: Visualized sinuses and mastoids are clear. IMPRESSION: 1. Chronic appearing small left-sided subdural hematoma with maximum thickness of approximately 3 mm. No midline shift. 2. Age-related senescent changes and sequela of chronic small vessel ischemic disease. No significant discrepancy with initial interpretation by overnight radiologist. Reviewed by: Gallo Lange MD on 03/02/2020 7:22 AM PDT Approved by: Gallo Lange MD on 03/02/2020 7:22 AM PDT Station ID: [id number]
--- NOTE | 2020-03-02 07:29 | CT Report ---
PROCEDURE: CERVICAL SPINE WO INDICATIONS: found on ground, face down TECHNIQUE: Noncontrast 3 mm thick sections acquired from the skull base to the T4 level. Sagittal and coronal r eformats were then constructed. For radiation dose reduction, the following was used: automated exp osure control, adjustment of mA and/or kV according to patient size. COMPARISON: None. FINDINGS: Image quality: Excellent. Bones: No acute fractures or dislocations. Mild straightening of cervical lordosis likely related t o positioning and/or concurrent muscle spasms. Moderate multilevel cervical spondylitic changes are a gain noted. Findings are most pronounced from C4-5 through C6-7. No acute compression fractures. C1-C 2 relationship is maintained. Craniocervical junction is intact. Visualized superior ribs are intact. Soft tissues: Prevertebral soft tissues are normal in thickness. No paravertebral hematomas. No ap ical pneumothoraces. IMPRESSION: 1. Cervical spine without acute fracture or dislocation. Straightening of cervical lordosis likely re lated to positioning and/or concurrent muscle spasms. 2. Moderate multilevel cervical spondylosis, demonstrating mild progression. No significant discrepancy with initial interpretation by overnight radiologist. Reviewed by: Gallo Lange MD on 03/02/2020 7:28 AM PDT Approved by: Gallo Lange MD on 03/02/2020 7:28 AM PDT Station ID: [id number]
== END 2020-03-02 06:01 | disposition home or self-care (01) ==
LOC: EDUNIT# → EDBD → ED 01:11
DX: F03.90 Unspecified dementia, unspecified severity, without behavioral disturbance, psychotic disturbance, mood disturbance, and anxiety (principal); W19.XXXA Unspecified fall, initial encounter; Y92.008 Other place in unspecified non-institutional (private) residence as the place of occurrence of the external cause
CPT/HCPCS: 36415; 51701; 70450; 71045; 72125; 80053; 81001; 81003; 83690; 85025; 87086; 99281; 99284

== ENCOUNTER 2020-03-21 09:52 | Outpatient (CLI) | payer MEDICARE, OTHER ==
--- NOTE | 2020-03-21 17:00 | XRAY Report ---
PROCEDURE: Lumbar Spine 2 View INDICATIONS: DEGENERATIVE JOINT DISEASE,LUMBAR SPINE TECHNIQUE: 2 views of the lumbar spine were acquired. COMPARISON: None. FINDINGS: Bones: 5 [id number] vertebrae are present. There is normal bony alignment in terms of scoliosi s. Degenerative disc disease is moderately severe over the lumbosacral spine with disc height reduct ion and endplate osteophyte formation most prominent from L2 inferiorly. Facet osteoarthritis also is prominent from L3 inferiorly and most pronounced at L5-S1. This is associated with slight retrolisth esis of L2 on L3, grade 1. There is slight anterolisthesis of L4 in relationship to L3 and L5. No bailey tebral body compression fractures. No suspicious bony lesions. Soft tissues: Overlying bowel gas pattern is normal. No suspicious soft tissue calcifications. IMPRESSION: Moderately severe to severe degenerative disc disease and facet osteoarthritis along the lumbosacral spine with mild grade 1 multilevel subluxation as noted. Both spinal and foraminal steno sis would be expected especially from L3 inferiorly and most pronounced at L5-S1. No compression frac ture found. Reviewed by: Lorenzo Brown MD on 03/21/2020 4:59 PM PDT Approved by: Lorenzo Brown MD on 03/21/2020 4:59 PM PDT Station ID: [id number]
== END 2020-03-21 09:53 | disposition home or self-care (01) ==
LOC: DI 09:52
PROVIDERS: ATTEND Physician Assistant Medical
DX: M47.896 Other spondylosis, lumbar region (principal); M51.37 Other intervertebral disc degeneration, lumbosacral region; M48.07 Spinal stenosis, lumbosacral region
CPT/HCPCS: 72100

== ENCOUNTER 2020-05-22 12:20 | Outpatient (CLI) | payer MEDICARE, OTHER ==
--- NOTE | 2020-05-22 19:17 | CONSULTATION NOTE ---
Palliative Care Consultation - Referral Referring Provider: MARIYA Cuellar Time of Visit: [id number] Referral setting: Home Referral Reason: Dementia/Advanced Care Planning - Information Sources Records reviewed: Previous records reviewed History/Review of Systems obtained from: Patient, Family (spouse, Esa) Exam limitations: Clinical condition (STM impairment) - History of Present Illness Brief History of Present Illness: This is a juan antonio 84-year-old female who was seen and evaluated today within her home for initial palliative care consultation due to advancing dementia and advanced care planning with her spouse, Esa present. The patient began having some problems with her memory approximately 4-5 years ago. She found that her short-term recall was impaired and she consistently has to repeat questions to have the answers repeated quite frequently. There is one particular instance where the patient spouse reports that she was found outside after potentially sleepwalking and the patient herself has no recollection of this incident did not that happen sometime ago. She was seen and evaluated by neurology with a diagnosis of Alzheimer's disease. She was initiated on benazepril but did not find any benefit from this medication and subsequently this was discontinued. The patient has a family history of dementia with her mother. . The patient's spouse finds that her cognitive impairment is worsening and the patient also supports this. She does have a history of a TIA approximately in 2017 and another questionable incident since that time. She is presently on aspirin therapy 81 mg twice daily. She is having more difficulty with her balance. She is now utilizing a cane more regularly. She does have a history of falls with none recently. She is essentially sedentary in lifestyle. She previously was the 1 to cook and prep all the meals but now much of the settlement clerk fall to the patient's . She also gave up driving approximately 1-1/2 to 2 years ago due to her cognitive impairment and underlying dizziness. There was some underlying concern for sleep apnea but probably sonographically performed 10/19 was negative for ARSH. The other debilitating symptom that the patient experiences is her chronic dizziness. This has been progressive for a number of years. She finds that position changes aggravate her dizziness. She denies visual changes at rest. She denies vertigo symptoms at rest. She has been evaluated by neurology, ENT, and cardiology regarding the symptoms without any definitive answer. She went for vestibular treatment and this was found to be not effective. She also had a trial of a meclizine course, also not effective for her symptoms. She reports a longstanding history of constipation. She can go multiple times a week with defecation and as long as approximately 1 week between defecation. She denies nausea or vomiting as well as abdominal pain. She is taken docuaste in the past and is no longer taking any medication on a routine basis for bowel regimen. Of note, she has many documented allergies to foods and medications. She reports to beginning to develop hives as a child after eating foods. Most of her side effects to medications have been attributed a pain after eating meals and vomiting. She had allergy testing preformed as a child. The patient is seen in her living room, well groomed and articulate. She is easily distracted and moving through topics. Dr. Vega: back pain Dr. Chaidez: cardiology Dr. Claude Kapadia: urology Dr. Shukri De: neurology Dr. Justen Packer: ENT Medical/Surgical History - Past Medical History Cardiovascular: reports: High cholesterol, Coronary artery disease, Other (PVCs) Respiratory: reports: Asthma Neuro: Dementia, TIA (2017), Other (Chronic dizziness) Neuro: reports: None Endocrine/Autoimmune: reports: Type 2 diabetes, HyPOthyroidism GI: reports: GERD : reports: Incontinence (mixed urinary incontinence) HEENT: reports: None Psych: reports: None Musculoskeletal: reports: Osteoarthritis Derm: reports: None MRSA Hx?: No Other Past Medical History: cervical stenosis of spinal canal; lumbar facet arthropathy - Past Surgical History General: reports: Cholecystectomy, Appendectomy, Colonoscopy (2007, 2011), Other (T & A; Cholecystectomy) Ortho: reports: Shoulder arthroplasty /SPORTS PHYSIOLOGIST: reports: Hysterectomy (Mid-urethral sling; Interstim implant), Oophrectomy, Other (T) Cardiovascular: reports: Cardiac catheterization (2010) HEENT: reports: Cataracts Derm: reports: Skin cancer surgery - Substance History Use: Uses substance without health or social issues: NONE (never a smoker) Social History - Living Situation Living arrangement: At home Living Situation: With spouse/s.o. Support System: Patient grew up in [place]. Her family moved to the area and 1851. She obt ained of masters of arch and education from [employer]. 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 They raised a series of Rodríguezeshonds and their last dog apprx 1 year ago. The patient and her spouse met while they were i [facility] through a dating add in the paper. They have no children together. They have relocated to the [facility] [place]. The patient has been very involved in history and documenting her family's history with the area. She has been active with the local [employer] [facility] as well as the state Association of daughters of the [facility]. Her volunteers 2 days a week at the [employer] in [place]. Family History - Family History Family History: Mother: , Alzheimer's Disease, Father: , Brother: , Cancer (lymphoma) Family History Comment/Other: Father: Lung Cancer Medications/Allergies - Medications Home Medications: Ambulatory Orders Medication Instructions Recorded Confirmed Levothyroxine [Synthroid] 25 mcg PO DAILY 01/10/13 05/23/20 Latanoprost [Xalatan] 1 drops EACHEYE QPM 11/10/15 05/23/20 Atorvastatin [Lipitor] 15 mg PO DAILY 12/20/17 05/23/20 Magnesium 250 mg PO DAILY PRN 12/20/17 05/23/20 Clobetasol Propionate 1 applic TD BID PRN 01/21/18 05/23/20 Aspirin [Adult Aspirin Regimen] 81 mg PO BID 04/12/19 05/23/20 Cholecalciferol (Vitamin D3) 2,000 unit PO DAILY 04/12/19 05/23/20 [Vitamin D3] Flaxseed Oil 1,000 mg PO DAILY 04/12/19 05/23/20 Fluticasone [Flonase] 1 spray KELVIN BID PRN 04/12/19 05/23/20 Ketotifen Fumarate [Alaway] 1 drp EACHEYE BID PRN 04/12/19 05/23/20 Menthol [Biofreeze] 1 applic TOP BID PRN 04/12/19 05/23/20 Naproxen Sodium [Aleve] 220 mg PO BID PRN 04/12/19 05/23/20 Esomeprazole Magnesium [Nexium] 20 mg PO QPM 07/04/19 05/23/20 Chelated Potassium 99 mg PO DAILY 05/23/20 05/23/20 Gabapentin [Neurontin] 300 mg PO BID 05/23/20 05/23/20 Spironolactone [Aldactone] 12.5 mg PO DAILY 05/23/20 05/23/20 Wal Zyr 10 mg PO DAILY 05/23/20 05/23/20 polyethylene glycoL 3350 [Miralax] 8.5 - 17 g PO DAILY 05/23/20 05/23/20 - Allergies Allergies/Adverse Reactions: Allergies Allergy/AdvReac Type Severity Reaction Status Date / Time alcohol Allergy Intermediate unsure Verified 05/23/20 12:56 chocolate flavor Allergy Unknown Unknown Verified 05/23/20 12:56 Penicillins Allergy Unknown unknown Verified 05/23/20 12:56 Sulfa (Sulfonamide Allergy Unknown unknown Verified 05/23/20 12:56 Antibiotics) adhesive Allergy Unknown Verified 05/23/20 12:56 bee venom protein (honey bee) Allergy Unknown Verified 05/23/20 12:56 coconut Allergy Unknown Verified 05/23/20 12:56 grass pollen Allergy Unknown Verified 05/23/20 12:56 mussels Allergy Unknown Verified 05/23/20 12:56 mustard Allergy Unknown Verified 05/23/20 12:56 oxycodone Allergy Unknown Verified 05/23/20 12:56 pepper (genus Capsicum) Allergy Unknown Verified 05/23/20 12:56 [pepper] pollen extracts Allergy Unknown Verified 05/23/20 12:56 strawberry Allergy Unknown Verified 05/23/20 12:56 Tetanus Vaccines and Toxoid Allergy Unknown Verified 05/23/20 12:56 walnut Allergy Unknown Verified 05/23/20 12:56 JOHN Inhibitors AdvReac Intermediate dizzy Verified 05/23/20 12:56 ciprofloxacin [From Cipro] AdvReac Intermediate dizzy/light Verified 05/23/20 12:56 headed ciprofloxacin HCl * AdvReac Intermediate dizzy/light Verified 05/23/20 12:56 [From Cipro] headed codeine [Codeine] AdvReac Intermediate gi problems Verified 05/23/20 12:56 midazolam HCl * [From Versed] AdvReac Intermediate short term Verified 05/23/20 12:56 memory loss osorio pepppers Allergy Mild allergy Uncoded 05/23/20 12:56 symptoms flu vaccine AdvReac Intermediate redness Uncoded 05/23/20 12:56 Review of Systems - Constitutional Constitutional: reports: Weight stable (weigth 180lb). denies: Fever, Chills, Poor appetite - Eyes Eyes: reports: Blurred vision, Corrective lenses (+reading glasses) - Ears, Nose & Throat Ears, Nose & Throat: reports: Other (+Chronic dizziness, see HPI). denies: Hearing loss, Hearing aids - Cardiovascular Cardiovascular: denies: Chest pain, Edema - Respiratory Respiratory: denies: Cough, Wheezing - Gastrointestinal Gastrointestinal: reports: Constipation (chronic), Good appetite. denies: Abdominal pain, Nausea, Vomiting - Genitourinary Genitourinary: reports: Incontinence (has interstim to right buttock that has not been effective in relieving her symptoms. Has also been on mybetriq and di tropan in the past.). denies: Dysuria - Musculoskeletal Musculoskeletal: reports: Back pain, Stiffness, Assistive devices (cane), Other (feels like her right knee will give out on her at times and has difficulty rising from chairs). denies: Joint pain - Integumentary Integumentary: denies: Rash, Pruritis - Neurological Neurological: reports: General weakness, Dizziness, Memory problems. denies: Headache - Psychiatric Psychiatric: denies: Depression - Endocrine Endocrine: reports: Diabetes type 2, Hypothyroidism - All Other Systems All Other Systems: reports: Reviewed and negative Physical Exam - Vital Signs Temperature: 36.4 C Pulse Rate: 62 O2 Saturation: 96 (on RA at rest) Blood Pressure: 136/81 (right wrist cuff) - Physical Exam General Appearance: positive: No acute distress, Alert, Other (well groomed) Eyes Bilateral: positive: Normal inspection ENT: positive: No signs of dehydration Neck: positive: Trachea midline, Other (supple neck). negative: Carotid bruit Cardiovascular: positive: Regular rate & rhythm, No murmur Respiratory: positive: No respiratory distress, Breath sounds nml. negative: Wheezes Abdomen: positive: Non-tender, Soft, Nml bowel sounds, Obese Skin: positive: No symptoms Extremities: positive: No pedal edema, Other (difficulty rising from seated position with noted stiffness to right knee) Neurologic/Psychiatric: positive: Oriented x3 (STM impairment noted with difficulty in recalling some of her PMH and recent events), Flat affect, Other (Easily distracted and shifts topics quickly) Palliative Care - POLST Patient has POLST: No Pain: Pain unchanged (chronic progressive neck and back pain, followed by Dr. Vega and take gabapentin with positive effective.) Tiredness/Fatigue: Mild (1-3) Drowsiness/Sedation: Mild (1-3) Nausea: None Anorexia: None Dyspnea: None Depression: None Anxiety: None Feelings of wellbeing/Perceived Quality of Life: Fair Constipation: Yes Performance Status: Patient has a history of gait instability and a history of falls with none re cently. She will ambulate with a cane for support. She has underlying mixed urinary incontinence. Continent of bowel. Sedentary lifestyle. PPS 60% - Palliative Care Discussion: The patient and her spouse recognize that the patient is having progression of her dementia in regards to her cognition. The patient is fearful regarding this due to her family history of dementia. The patient is someone that has always been a detailed oriented individual and to forget details is quite frustrating for her. The patient's spouse does not wish to leave the patient alone and is looking for increased support so he may continue to attend his volunteer duties at the local [employer] [facility] 2 days/week. The patient has healthcare directives that are not available at this time. Introduced the concept of POLST and will review at next visit. Impression and Recommendations - Palliative Care Impression: This is a juan antonio 84-year-old female with advancing cognitive impairment due to underlying Alzheimer's disease, gait in debility with underlying dizziness of unknown etiology with needs for advanced care planning. Patient recognizes her short-term memory limitations and findings this loss frustrating. Supportive listening provided. Palliative care to continue to build rapport, explore goals of care, provide care coordination and advance care planning moving forward. Recommendations/Counseling Done: 1. Constipation. Longstanding history. Likely impacted by patient's sedentary lifestyle contributing. Recommend introduction of MiraLAX one half capful nightly dissolved in 4 ounces of liquid. If needed can increase to 1 capful daily. Consider introduction of fiber supplementation in the future. Encourage adequate oral hydration during the day. Continue to monitor. 2. Mixed urinary incontinence. InterStim implant to right buttocks. Previously has been on Ditropan and my Greg in the past without control of symptoms. Recommend frequent timed voiding and to void Prior to bed. Recommend avoiding liquids 1 hour prior to bedtime to limit risk of frequent neck diarrhea. Follow-up with urology as scheduled. 3. Gait instability with underlying osteoarthritis. Recommend obtainment of of walker for use. Recommended [facility] for this piece of durable medical equipment. Consider physical therapy in the future for further evaluation. Recommended obtainment of lift recliner to aid in easing the patient's ability to rise from a seated position. 4. Dizziness, chronic. Has been evaluated by multiple specialties including ENT, cardiology and neurology. Unknown etiology. Fall precautions. Continue to encourage slow position changes and adequate oral hydration during the day. Recommend of avoidance of driving. 5. Alzheimer's dementia. Cognitive impairment progressing. Has been on donepezil Given the patient's advanced age a gradual decline is expected. 6. Advanced care planning. Request that healthcare directives be available at next visit for review. Introduced POLST and provided blank copy for patient and spouse to review and discuss at next visit. We will also review at next visit potential caregiving options that are available to the patient and spouse and introduce a lifeline as a potential resource. We will continue to explore goals of care and build rapport.in the past and did not improve symptoms and thus was discontinued. Progressive. Chronic. Supportive care. Time Spent: F/u In 2 to 4 weeks or as needed. Total time spent 90 minutes with greater than 50% of this spent in counseling and coordination of care with patient and spouse; review of palliative care philosophy; supportive listening; examination of patient; review of pathophysiology of Alzheimer's disease; review of symptom management and anticipatory guidance. Disclaimer: The chart note was formulated using voice recognition technology and unfortunately sound alike errors may occur.
== END 2020-05-22 12:21 | disposition home or self-care (01) ==
LOC: PC 12:20
PROVIDERS: ATTEND Nurse Practitioner Family
DX: Z51.5 Encounter for palliative care (principal); G30.9 Alzheimer's disease, unspecified; F02.80 Dementia in other diseases classified elsewhere, unspecified severity, without behavioral disturbance, psychotic disturbance, mood disturbance, and anxiety; K59.00 Constipation, unspecified; M19.90 Unspecified osteoarthritis, unspecified site; M48.02 Spinal stenosis, cervical region; M47.816 Spondylosis without myelopathy or radiculopathy, lumbar region; R26.89 Other abnormalities of gait and mobility; N39.46 Mixed incontinence; R42 Dizziness and giddiness; Z79.82 Long term (current) use of aspirin; Z79.899 Other long term (current) drug therapy; Z86.73 Personal history of transient ischemic attack (TIA), and cerebral infarction without residual deficits; Z96.82 Presence of neurostimulator; Z91.81 History of falling
CPT/HCPCS: 99345

== ENCOUNTER 2020-06-11 16:21 | Emergency (ER) | payer MEDICARE, OTHER ==
--- NOTE | 2020-06-11 16:59 | ED Physician Documentation ---
History of Present Illness - Stated complaint Stated Complaint: DIZZY,"POSSIBLE STROKE" - Chief complaint Chief Complaint: Neuro - History obtained from History obtained from: Patient - History of Present Illness Timing: Unknown Pain level max: 0 Pain level now: 0 - Additonal information Additional information: 85 year old female here with her friend. Patient is currently seeing palliative care for dementia. The patient has had difficulty with short-term memory for several months to a year. The patient has had intermittent confusion since that time as well. The patient has chronic dizziness. This is unchanged. This morning her neighbor came to check on her and said she was confused and had an elevated blood pressure at that time. She gave the patient her blood pressure medication, blood pressure decreased and the symptoms resolved. Patient is currently asymptomatic and at her normal baseline. No focal neurological deficits. No numbness or tingling. No slurred speech. No vision deficits. Review of Systems Unable to obtain: Dementia Ten Systems: 10 systems reviewed and negative Constitutional: denies: Fever, Chills Nose: denies: Rhinorrhea / runny nose, Congestion Throat: denies: Sore throat Respiratory: denies: Cough GI: denies: Abdominal Pain, Nausea, Vomiting, Diarrhea Skin: denies: Rash Musculoskeletal: denies: Neck pain, Back pain Neurologic: denies: Focal weakness, Numbness, Headache, Head injury, LOC PD PAST MEDICAL HISTORY - Past Medical History Cardiovascular: High cholesterol, Coronary artery disease, Other (PVCs) Respiratory: Asthma Neuro: Dementia, TIA (2017), Other (Chronic dizziness) Endocrine/Autoimmune: Type 2 diabetes, HyPOthyroidism GI: GERD : Incontinence (mixed urinary incontinence) HEENT: None Psych: None Musculoskeletal: Osteoarthritis Derm: None - Past Surgical History Past Surgical History: Yes General: Cholecystectomy, Appendectomy, Colonoscopy (2007, 2011), Other (T & A; Cholecystectomy) Ortho: Shoulder 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: Hysterectomy (Mid-urethral sling; Interstim implant), Oophrectomy, Other (T) Cardiovascular: Cardiac catheterization (2010) HEENT: Cataracts Derm: Skin cancer surgery - Present Medications Home Medications: Ambulatory Orders Medication Instructions Recorded Confirmed Levothyroxine [Synthroid] 25 mcg PO DAILY 01/10/13 06/11/20 Latanoprost [Xalatan] 1 drops EACHEYE QPM 11/10/15 06/11/20 Atorvastatin [Lipitor] 15 mg PO DAILY 12/20/17 06/11/20 Magnesium 250 mg PO DAILY PRN 12/20/17 06/11/20 Clobetasol Propionate 1 applic TD BID PRN 01/21/18 06/11/20 Aspirin [Adult Aspirin Regimen] 81 mg PO BID 04/12/19 06/11/20 Cholecalciferol (Vitamin D3) 2,000 unit PO DAILY 04/12/19 06/11/20 [Vitamin D3] Fluticasone [Flonase] 1 spray KELVIN BID PRN 04/12/19 06/11/20 Ketotifen Fumarate [Alaway] 1 drp EACHEYE BID PRN 04/12/19 06/11/20 Menthol [Biofreeze] 1 applic TOP PRN PRN 04/12/19 06/11/20 Naproxen Sodium [Aleve] 220 mg PO PRN PRN 04/12/19 06/11/20 Esomeprazole Magnesium [Nexium] 20 mg PO QPM 07/04/19 06/11/20 Chelated Potassium 99 mg PO DAILY 05/23/20 06/11/20 Gabapentin [Neurontin] 300 mg PO PRN PRN 05/23/20 06/11/20 Spironolactone [Aldactone] 12.5 mg PO DAILY 05/23/20 06/11/20 Wal Zyr 10 mg PO DAILY 05/23/20 06/11/20 polyethylene glycoL 3350 [Miralax] 8.5 - 17 g PO DAILY 05/23/20 06/11/20 - Allergies Allergies/Adverse Reactions: Allergies Allergy/AdvReac Type Severity Reaction Status Date / Time alcohol Allergy Intermediate unsure Verified 06/11/20 16:23 chocolate flavor Allergy Unknown Unknown Verified 06/11/20 16:23 Penicillins Allergy Unknown unknown Verified 06/11/20 16:23 Sulfa (Sulfonamide Allergy Unknown unknown Verified 06/11/20 16:23 Antibiotics) adhesive Allergy Unknown Verified 06/11/20 16:23 bee venom protein (honey bee) Allergy Unknown Verified 06/11/20 16:23 coconut Allergy Unknown Verified 06/11/20 16:23 grass pollen Allergy Unknown Verified 06/11/20 16:23 mussels Allergy Unknown Verified 06/11/20 16:23 mustard Allergy Unknown Verified 06/11/20 16:23 oxycodone Allergy Unknown Verified 06/11/20 16:23 pepper (genus Capsicum) Allergy Unknown Verified 06/11/20 16:23 [pepper] pollen extracts Allergy Unknown Verified 06/11/20 16:23 strawberry Allergy Unknown Verified 06/11/20 16:23 Tetanus Vaccines and Toxoid Allergy Unknown Verified 06/11/20 16:23 walnut Allergy Unknown Verified 06/11/20 16:23 JOHN Inhibitors AdvReac Intermediate dizzy Verified 06/11/20 16:23 ciprofloxacin [From Cipro] AdvReac Intermediate dizzy/light Verified 06/11/20 16:23 headed ciprofloxacin HCl * AdvReac Intermediate dizzy/light Verified 06/11/20 16:23 [From Cipro] headed codeine [Codeine] AdvReac Intermediate gi problems Verified 06/11/20 16:23 midazolam HCl * [From Versed] AdvReac Intermediate short term Verified 06/11/20 16:23 memory loss osorio pepppers Allergy Mild allergy Uncoded 05/23/20 12:56 symptoms flu vaccine AdvReac Intermediate redness Uncoded 05/23/20 12:56 - Social History Does the pt smoke?: No Smoking Status: Never smoker Does the pt drink ETOH?: No Does the pt have substance abuse?: No - Immunizations Immunizations are current?: No Immunizations: TDAP >10years/unknown - POLST Patient has POLST: No PD ED PE NORMAL - Vitals Vital signs reviewed: Yes - General General: Alert and oriented X 3, No acute distress, Well developed/nourished - HEENT HEENT: PERRL, Moist mucous membranes - Neck Neck: Supple, no meningeal sign - Cardiac Cardiac: RRR, Strong equal pulses - Respiratory Respiratory: No respiratory distress, Clear bilaterally - Abdomen Abdomen: Soft, Non tender, Non distended - Derm Derm: Warm and dry - Extremities Extremities: No edema, No calf tenderness / cord - Neuro 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, 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, No motor deficit, No sensory deficit, Normal speech - Psych Psych: Normal mood, Normal affect Results - Vitals Vitals: Vital Signs - 24 hr 06/11/20 06/11/20 06/11/20 16:23 16:58 18:39 Temperature 36.8 C 36.3 C L Heart Rate 72 74 80 Respiratory 18 17 19 Rate Blood Pressure 145/61 H 152/75 H 169/80 H O2 Saturation 95 97 97 Oxygen O2 Source Room air - EKG (time done) 1632 Rate: Rate (enter#) (72) Rhythm: NSR [place]: Normal Intervals: Normal [place] QRS: Normal Ischemia: Normal ST segments - Labs Labs: Laboratory Tests 06/11/20 06/11/20 17:14 17:14 WBC 8.0 RBC 5.03 Hgb 14.2 Hct 44.0 MCV 87.5 MCH 28.2 MCHC 32.3 RDW 13.2 Plt Count 217 MPV 9.1 Neut # (Auto) 5.5 Lymph # (Auto) 1.8 Creek # (Auto) 0.7 Eos # (Auto) 0.1 Baso # (Auto) 0.0 Absolute Nucleated RBC 0.00 Nucleated RBC % 0.0 Sodium 138 Potassium 4.0 Chloride 104 Carbon Dioxide 25 Anion Gap 9.0 BUN 28 H Creatinine 1.0 Estimated GFR (MDRD) 52 L Glucose 126 H Calcium 9.8 Total Bilirubin 0.7 AST 17 ALT 17 Alkaline Phosphatase 104 Total Protein 6.9 Albumin 4.0 Globulin 2.9 Albumin/Globulin Ratio 1.4 - Rads (name of study) Head CT Radiology: Prelim report reviewed, EMP read contemporaneously, See rad report (No acute abnormality. Subdural hemorrhage previously seen is now resolved) PD MEDICAL DECISION MAKING - ED course Complexity details: reviewed results, re-evaluated patient, considered differential, d/w patient ED course: 85-year-old female presents to the emergency department today with confusion at home. Has a history of dementia and is seeing palliative care for this. No acute changes. Patient did attempt to give a urine sample, but missed the hat in the toilet. Does not want to stay for another sample. No acute findings on head CT or laboratory testing. Patient is well-appearing, nontoxic. Afebrile. No focal neurological deficits. Ambulating without difficulty here. Recommend that she follow-up with her doctor, she can discuss medication such as Namenda. Patient and family counseled regarding signs and symptoms for which I believe and urgent re-evaluation would be necessary. Patient with good understanding of and agreement to plan and is comfortable going home at this time This document was made in part using voice recognition software. While efforts are made to proofread this document, sound alike and grammatical errors may occur. Departure - Departure Disposition: 01 Home, Self Care Clinical Impression: Dehydration Dementia Qualifiers: Dementia type: unspecified type Dementia behavioral disturbance: without behavioral disturbance Qualified Code(s): F03.90 - Unspecified dementia without behavioral disturbance Condition: Good Instructions: ED Confusion, ED Dehydration Follow-Up: Kourtney Baer PA-C [Primary Care Provider] - Comments: You should talk to your doctor about starting a medication such as Namenda for your dementia. Return if you worsen. Follow-up with your doctor for further care. You can also have a urine sample performed by your doctor to check for infection. NIHSS - Time Time: 16:50 - Level of Consciousness Level of consciousness: (0) Alert, Keenly responsive LOC Questions: (0) Answers both Q's correct LOC Commands: (0) Performs both correctly - Gaze Best Gaze: (0) Normal - Visual Visual: (0) No loss - Facial Palsy Facial Palsy: (0) Normal, symmetrical movement - Motor Arms (both separate) Motor Arm (right): (0) No drift Motor Arm (left): (0) No drift - Motor Legs (both separate) Motor Leg (right): (0) No drift Motor Leg (left): (0) No drift - Limb Ataxia Limb Ataxia: (0) Absent - Sensory Sensory: (0) Normal - Best Language Best Language: (0) No aphasia - Dysarthria Dysarthria: (0) Normal - Extinction and Inattention (formally neg Extinction and inattention: (0) No abnormality - Total Score/Results Total Score/Result: 0
--- NOTE | 2020-06-11 17:18 | CT Report ---
PROCEDURE: HEAD WO INDICATIONS: altered mental status TECHNIQUE: Noncontrast 4.5 mm thick angled axial sections acquired from the foramen magnum to the vertex. For r adiation dose reduction, the following was used: automated exposure control, adjustment of mA and/or kV according to patient size. COMPARISON: 03/02/2020, 07/18/2019 FINDINGS: Image quality: Excellent. CSF spaces: Basal cisterns are patent. No extra-axial fluid collections. Ventricles are normal in size and shape. Brain: No midline shift. No intracranial masses or hemorrhage. Negro-white matter interface is norm al. Focal calcification can be seen along the anterior left fazal, as before. Brain parenchymal volum e loss is seen. Chronic small vessel ischemic changes can be seen. Skull and face: Calvarium and visualized facial bones are intact, without suspicious lesions. 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 Sinuses: Visualized sinuses and mastoids are clear. IMPRESSION: Unremarkable intracranial study for age. No recurrent subdural hematoma can be seen. Reviewed by: Rylan Luque MD on 06/11/2020 4:16 PM [place] Approved by: Rylan Luque MD on 06/11/2020 4:16 PM [facility] Station ID: [id number]
[2020-06-11 17:21] LABS: BASOPHILS % (AUTO) 0.5 %; EOSINOPHILS # (AUTO) 0.1 10^3/uL (0.0-0.7); EOSINOPHILS % (AUTO) 0.6 %; HGB - HEMOGLOBIN 14.2 g/dL (12.0-16.0); LYMPHOCYTES # (AUTO) 1.8 10^3/uL (1.5-3.5); LYMPHOCYTES % (AUTO) 22.1 %; MEAN CORPUSCULAR HEMOGLOBIN 28.2 pg (27.0-31.0); MEAN CORPUSCULAR HGB CONC 32.3 g/dL (32.0-36.0); MEAN CORPUSCULAR VOLUME 87.5 fL (81.0-99.0); MEAN PLATELET VOLUME 9.1 fL (7.9-10.8); MONOCYTES # (AUTO) 0.7 10^3/uL (0.0-1.0); MONOCYTES % (AUTO) 8.2 %; NEUTROPHILS # (AUTO) 5.5 10^3/uL (1.5-6.6); NEUTROPHILS % (AUTO) 68.1 %; PLT - PLATELET COUNT 217 10^3/uL (130-450); RED BLOOD COUNT 5.03 10^6/uL (4.20-5.40); RED CELL DISTRIBUTION WIDTH 13.2 % (12.0-15.0)
[2020-06-11 17:34] LABS: ALBUMIN/GLOBULIN RATIO 1.4 (1.0-2.2); BILIRUBIN,TOTAL 0.7 mg/dL (0.2-1.0); CALCIUM 9.8 mg/dL (8.5-10.3); TOTAL PROTEIN 6.9 g/dL (6.7-8.2)
[2020-06-11 18:40] VITALS: BP 169/80
== END 2020-06-11 18:50 | disposition home or self-care (01) ==
LOC: ED 16:21
DX: E86.0 Dehydration (principal); F03.90 Unspecified dementia, unspecified severity, without behavioral disturbance, psychotic disturbance, mood disturbance, and anxiety
CPT/HCPCS: 36415; 70450; 80053; 85025; 93005; 99284

== ENCOUNTER 2020-06-12 14:05 | Outpatient (CLI) | payer MEDICARE, OTHER ==
--- NOTE | 2020-06-12 16:32 | CONSULTATION NOTE ---
Palliative Care Follow Up - Referral Referring Provider: Kourtney Baer PA-C Time of Visit: [id number] Referral setting: Home Referral Reason: Constipation/Dizziness/Dementia - Information Sources Records reviewed: Previous records reviewed History/Review of Systems obtained from: Patient, Family (spouse, Esa and cousin, Indy (retired RN)) Exam limitations: Clinical condition (STM impairment) - History of Present Illness Update Brief HPI Update: This is an 85-year-old female who was seen and evaluated today within her home for follow-up due to symptoms of dementia, constipation and dizziness. The patient reports difficulty with her balance and underlying dizziness. She has been seen and evaluated by multiple specialists and tried different medications that have not been effective. She does report a history of falls and has not had any recently. She finds that her dizziness is occurring more frequently and denies vertigo symptoms. She describes a sensation that she will "be there but not there" like she is "floating." Yesterday, she felt off and was sleeping later and her cousin who is a retired RN took her blood pressure which was elevated at 193/93 and the patient was concerned that she was having strokelike symptoms and she was seen and evaluated in the emergency department [facility] with [facility] CT scan of the head which was negative for an acute intracranial process. It was determined by the patient's spouse and her cousin that she had not taken her blood pressure medication that resulted in her symptomatology. The patient was recommended to follow-up with her PCP in regards to Namenda initiation. The patient has previously been seen and evaluated by a neurologist in the past and was initiated on Aricept but did not find any benefit from this medication and it was subsequently discontinued. She is open to trying a new medication for her memory. The patient the patient reports that she has good days and bad days in regards to her memory. This has been a progressive symptom that began approximately 4 to 5 years ago. Her spouse has concerns about leaving her independently alone. The patient is seen in her living room, well groomed and articulate. She is easily distracted if the topic is changed and will veer off course. Past Medical History: Patient has a past medical history of hyperlipidemia, TIA, PVCs, coronary artery disease, asthma, TIA, chronic dizziness, diabetes mellitus type 2, hypothyroidism, mixed urinary incontinence, cervical stenosis of the spinal canal, HTN. Social History - Living Situation Living arrangement: At home Living Situation: With spouse/s.o. Support System: Patient grew up in [place]. Her family moving to the area and [address]51. 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 She lives with her , Esa. They have no children. [place] [facility] [place]. Medications/Allergies - Medications Home Medications: Ambulatory Orders Medication Instructions Recorded Confirmed Levothyroxine [Synthroid] 25 mcg PO DAILY 01/10/13 06/11/20 Latanoprost [Xalatan] 1 drops EACHEYE QPM 11/10/15 06/11/20 Atorvastatin [Lipitor] 15 mg PO DAILY 12/20/17 06/11/20 Magnesium 250 mg PO DAILY PRN 12/20/17 06/11/20 Clobetasol Propionate 1 applic TD BID PRN 01/21/18 06/11/20 Aspirin [Adult Aspirin Regimen] 81 mg PO BID 04/12/19 06/11/20 Cholecalciferol (Vitamin D3) 2,000 unit PO DAILY 04/12/19 06/11/20 [Vitamin D3] Fluticasone [Flonase] 1 spray KELVIN BID PRN 04/12/19 06/11/20 Ketotifen Fumarate [Alaway] 1 drp EACHEYE BID PRN 04/12/19 06/11/20 Menthol [Biofreeze] 1 applic TOP PRN PRN 04/12/19 06/11/20 Naproxen Sodium [Aleve] 220 mg PO PRN PRN 04/12/19 06/11/20 Esomeprazole Magnesium [Nexium] 20 mg PO QPM 07/04/19 06/11/20 Chelated Potassium 99 mg PO DAILY 05/23/20 06/11/20 Gabapentin [Neurontin] 300 mg PO PRN PRN 05/23/20 06/11/20 Spironolactone [Aldactone] 12.5 mg PO DAILY 05/23/20 06/11/20 Wal Zyr 10 mg PO DAILY 05/23/20 06/11/20 polyethylene glycoL 3350 [Miralax] 8.5 - 17 g PO DAILY 05/23/20 06/11/20 - Allergies Allergies/Adverse Reactions: Allergies Allergy/AdvReac Type Severity Reaction Status Date / Time alcohol Allergy Intermediate unsure Verified 06/11/20 16:23 chocolate flavor Allergy Unknown Unknown Verified 06/11/20 16:23 Penicillins Allergy Unknown unknown Verified 06/11/20 16:23 Sulfa (Sulfonamide Allergy Unknown unknown Verified 06/11/20 16:23 Antibiotics) adhesive Allergy Unknown Verified 06/11/20 16:23 bee venom protein (honey bee) Allergy Unknown Verified 06/11/20 16:23 coconut Allergy Unknown Verified 06/11/20 16:23 grass pollen Allergy Unknown Verified 06/11/20 16:23 mussels Allergy Unknown Verified 06/11/20 16:23 mustard Allergy Unknown Verified 06/11/20 16:23 oxycodone Allergy Unknown Verified 06/11/20 16:23 pepper (genus Capsicum) Allergy Unknown Verified 06/11/20 16:23 [pepper] pollen extracts Allergy Unknown Verified 06/11/20 16:23 strawberry Allergy Unknown Verified 06/11/20 16:23 Tetanus Vaccines and Toxoid Allergy Unknown Verified 06/11/20 16:23 walnut Allergy Unknown Verified 06/11/20 16:23 JOHN Inhibitors AdvReac Intermediate dizzy Verified 06/11/20 16:23 ciprofloxacin [From Cipro] AdvReac Intermediate dizzy/light Verified 06/11/20 16:23 headed ciprofloxacin HCl * AdvReac Intermediate dizzy/light Verified 06/11/20 16:23 [From Cipro] headed codeine [Codeine] AdvReac Intermediate gi problems Verified 06/11/20 16:23 midazolam HCl * [From Versed] AdvReac Intermediate short term Verified 06/11/20 16:23 memory loss osorio pepppers Allergy Mild allergy Uncoded 05/23/20 12:56 symptoms flu vaccine AdvReac Intermediate redness Uncoded 05/23/20 12:56 Review of Systems - Constitutional Constitutional: denies: Fever, Poor appetite - Eyes Eyes: reports: Corrective lenses (+reading glasses) - Ears, Nose & Throat Ears, Nose & Throat: reports: Other (+Chronic dizziness, see HPI). denies: Hearing loss - Cardiovascular Cardiovascular: denies: Chest pain, Edema - Respiratory Respiratory: denies: Cough - Gastrointestinal Gastrointestinal: reports: Constipation (chronic, has not started miralax as previously suggested), Good appetite. denies: Abdominal pain, Nausea, Vomiting - Genitourinary Genitourinary: reports: Incontinence (has interstim to right buttock that has not been effective in relieving her symptoms. Has also been on mybetriq and ditropan in the past.), Nocturia (once per night). denies: Dysuria - Musculoskeletal Musculoskeletal: reports: Back pain, Stiffness, Assistive devices (cane). denies: Joint pain - Integumentary Integumentary: reports: Other (dryness around nails--recommneded moisutrizer at bedtime) - Neurological Neurological: reports: General weakness, Dizziness, Memory problems. denies: Headache - Psychiatric Psychiatric: denies: Depression - Endocrine Endocrine: reports: Diabetes type 2, Hypothyroidism - All Other Systems All Other Systems: reports: Reviewed and negative Physical Exam - Vital Signs Pulse Rate: 67 O2 Saturation: 95 (on RA) Blood Pressure: 147/88 (sitting) - Physical Exam General Appearance: positive: No acute distress, Alert, Other (well groomed) Eyes Bilateral: positive: Normal inspection, PERRL ENT: positive: No signs of dehydration Neck: positive: Trachea midline. negative: Carotid bruit Cardiovascular: positive: Regular rate & rhythm Respiratory: positive: No respiratory distress, Breath sounds nml Abdomen: positive: Non-tender, Soft, Nml bowel sounds, Obese Skin: positive: Other (Painted fingernails and unable to visualize any peeling to nails) Extremities: positive: No pedal edema, Other (difficulty rising from seated position in low chairs) Neurologic/Psychiatric: positive: Oriented x3 (STM impairment noted), Flat affect, Other (Easily distracted re: topics of discussion) Palliative Care - POLST Patient has POLST: No Pain: Pain unchanged (chronic progressive neck and back pain, followed by Dr. Vega and takes gabapentin) Performance Status: PPS 60% - Palliative Care Discussion: The patient is frustrated in regards to her chronic dizziness and of lack of an answer despite multiple specialists. She has not found any medications that have been effective. 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 Due to multiple entities within the home environment including the patient's cousin, did not reintroduce POLST and teasing out further goals of care at the present time. Impression and Recommendations - Palliative Care Impression: An 85-year-old female with advancing cognitive impairment due to underlying Alzheimer's disease, 8 instability with underlying chronic dizziness of unknown etiology with needs for further advanced care planning. The patient does recognize her limitations and is open to support that is acceptable to her. Palliative care to continue to build rapport, explore goals of care, provide care coordination advance care planning moving forward. Recommendations/Counseling Done: 1. Dizziness, chronic. Has been evaluated by multiple specialists including ENT, cardiology and neurology. Unknown etiology. Orthostatic blood pressure obtained today and no evidence of hypotension on evaluation. Fall precautions. Reiterated again today encouraging the patient to change positions slowly and ensure adequate oral hydration during the day. Continue avoidance of driving. Utilize cane for support. 2. Gait instability with underlying osteoarthritis. Spouse and patient looked into obtainment of lift recliner to ease the patient's ability to rise from a sitting position however reframe due to cost. Recommended getting risers for the posts of the chairs to elevate the chair that the patient prefer sitting in to allow ease from rising. 3. Alzheimer's dementia. Chronic. Progressive. Has been on dense a pill in the past and discontinued due to lack of benefit. Patient is open to trying Namenda as recommended by emergency department provider and will discuss with PCP at next office visit in early June. We will also make PCP aware the patient wishes to discuss initiation wearing risk versus benefits. At the present time the patient does not feel that she takes "too many medications." 4.Hypertension. Recent episode of elevated blood pressure with some underlying symptoms when teasing out further that the patient had not taken her medication the previous day. Typically upon review of patient's tracking she is typically well controlled and followed by cardiology. Introduced concept that the patient's spouse or oversee medication management moving forward and patient open and in agreement. 5. Advanced care planning. Provided additional items for review for future planning in regards to caregivers within the home, [email or web address]'[email or web address] for resources as well as [facility] resources contact information. Unable to address POLST and further teasing of goals of care given multiple parties in the home and sensitive nature of discussion. We will continue to explore goals of care and build rapport moving forward. Plan to follow-up with this introduction at next visit. Time Spent: Total time spent 70 minutes with greater than 50% of this spent in counseling and coordination of care with patient, spouse and cousin; examination of patient; review of symptom management and anticipatory guidance. Disclaimer: The chart note was formulated using voice recognition technology and unfortunately sound alike errors may occur.
== END 2020-06-12 14:06 | disposition home or self-care (01) ==
LOC: PC 14:05
PROVIDERS: ATTEND Nurse Practitioner Family
DX: Z51.5 Encounter for palliative care (principal); R42 Dizziness and giddiness; R26.81 Unsteadiness on feet; M19.90 Unspecified osteoarthritis, unspecified site; G30.9 Alzheimer's disease, unspecified; F02.80 Dementia in other diseases classified elsewhere, unspecified severity, without behavioral disturbance, psychotic disturbance, mood disturbance, and anxiety; I10 Essential (primary) hypertension; E11.9 Type 2 diabetes mellitus without complications
CPT/HCPCS: 99350

== ENCOUNTER 2020-07-13 18:04 | Outpatient (CLI) | payer MEDICARE, OTHER | END 2020-07-13 18:05 | disposition EMS.NT | LOC: EMS 18:04 | DX: Z03.89 Encounter for observation for other suspected diseases and conditions ruled out (principal) ==

== ENCOUNTER 2020-07-13 19:00 | Emergency (ER) | payer MEDICARE, OTHER ==
--- NOTE | 2020-07-13 19:34 | ED Physician Documentation ---
PD HPI FOCAL NEURO - Stated complaint Stated Complaint: WEAKNESS - Chief complaint Chief Complaint: Neuro - History obtained from History obtained from: Patient, Family () - Additional information Additional information: This is an 85-year-old woman with dementia who lives with her . She noted increased urinary frequency today, noting that she does have a bladder pacemaker in place. She was in her usual state of health this morning when she got up and they went out for breakfast. They returned home and she laid down for a nap and basically slept for the next several hours and on awakening she was confused, had slurred speech, and she thought it was the wee hours of the morning despite it being 5 in the evening. She had slurred speech, but this is an on and off phenomenon that per she and the is getting more frequent. Review of Systems Ten Systems: 10 systems reviewed and negative Constitutional: denies: Fever, Chills Eyes: denies: Loss of vision, Decreased vision Ears: reports: Reviewed and negative Nose: reports: Reviewed and negative Throat: reports: Reviewed and negative Cardiac: reports: Reviewed and negative Respiratory: reports: Reviewed and negative PD PAST MEDICAL HISTORY - Past Medical History Cardiovascular: High cholesterol, Coronary artery disease, Other (PVCs) Respiratory: Asthma Neuro: Dementia, TIA (2017), Other (Chronic dizziness) Endocrine/Autoimmune: Type 2 diabetes, HyPOthyroidism GI: GERD : Incontinence (mixed urinary incontinence) HEENT: None Psych: None Musculoskeletal: Osteoarthritis Derm: None - Past Surgical History Past Surgical History: Yes General: Cholecystectomy, Appendectomy, Colonoscopy (2007, 2011), Other (T & A; Cholecystectomy) Ortho: Shoulder arthroplasty /RIVETER PNEUMATIC: Hysterectomy (Mid-urethral sling; Interstim implant), Oophrectomy, Other (T) Cardiovascular: Cardiac catheterization (2010) HEENT: Cataracts Derm: Skin cancer surgery - Present Medications Home Medications: Ambulatory Orders Medication Instructions Recorded Confirmed Levothyroxine [Synthroid] 25 mcg PO DAILY 01/10/13 07/13/20 Latanoprost [Xalatan] 1 drops EACHEYE QPM 11/10/15 07/13/20 Atorvastatin [Lipitor] 15 mg PO DAILY 12/20/17 07/13/20 Magnesium 250 mg PO DAILY PRN 12/20/17 07/13/20 Clobetasol Propionate 1 applic TD BID PRN 01/21/18 07/13/20 Aspirin [Adult Aspirin Regimen] 81 mg PO BID 04/12/19 07/13/20 Cholecalciferol (Vitamin D3) 2,000 unit PO DAILY 04/12/19 07/13/20 [Vitamin D3] Fluticasone [Flonase] 1 spray KELVIN BID PRN 04/12/19 07/13/20 Ketotifen Fumarate [Alaway] 1 drp EACHEYE BID PRN 04/12/19 07/13/20 Menthol [Biofreeze] 1 applic TOP PRN PRN 04/12/19 07/13/20 Naproxen Sodium [Aleve] 220 mg PO PRN PRN 04/12/19 07/13/20 Esomeprazole Magnesium [Nexium] 20 mg PO QPM 07/04/19 07/13/20 Chelated Potassium 99 mg PO DAILY 05/23/20 06/11/20 Gabapentin [Neurontin] 300 mg PO PRN PRN 05/23/20 07/13/20 Spironolactone [Aldactone] 12.5 mg PO DAILY 05/23/20 07/13/20 Wal Zyr 10 mg PO DAILY 05/23/20 06/11/20 polyethylene glycoL 3350 [Miralax] 8.5 - 17 g PO DAILY 05/23/20 07/13/20 Nitrofurantoin Monohyd/M-Cryst 100 mg PO BID #10 cap 07/13/20 [Macrobid 100 mg Capsule] - Allergies Allergies/Adverse Reactions: Allergies Allergy/AdvReac Type Severity Reaction Status Date / Time alcohol Allergy Intermediate unsure Verified 07/13/20 19:05 chocolate flavor Allergy Unknown Unknown Verified 07/13/20 19:05 Penicillins Allergy Unknown unknown Verified 07/13/20 19:05 Sulfa (Sulfonamide Allergy Unknown unknown Verified 07/13/20 19:05 Antibiotics) adhesive Allergy Unknown Verified 07/13/20 19:05 bee venom protein (honey bee) Allergy Unknown Verified 07/13/20 19:05 coconut Allergy Unknown Verified 07/13/20 19:05 grass pollen Allergy Unknown Verified 07/13/20 19:05 mussels Allergy Unknown Verified 07/13/20 19:05 mustard Allergy Unknown Verified 07/13/20 19:05 oxycodone Allergy Unknown Verified 07/13/20 19:05 pepper (genus Capsicum) Allergy Unknown Verified 07/13/20 19:05 [pepper] pollen extracts Allergy Unknown Verified 07/13/20 19:05 strawberry Allergy Unknown Verified 07/13/20 19:05 Tetanus Vaccines and Toxoid Allergy Unknown Verified 07/13/20 19:05 walnut Allergy Unknown Verified 07/13/20 19:05 JOHN Inhibitors AdvReac Intermediate dizzy Verified 07/13/20 19:05 ciprofloxacin [From Cipro] AdvReac Intermediate dizzy/light Verified 07/13/20 19:05 headed ciprofloxacin HCl * AdvReac Intermediate dizzy/light Verified 07/13/20 19:05 [From Cipro] headed codeine [Codeine] AdvReac Intermediate gi problems Verified 07/13/20 19:05 midazolam HCl * [From Versed] AdvReac Intermediate short term Verified 07/13/20 19:05 memory loss osorio pepppers Allergy Mild allergy Uncoded 07/13/20 19:05 symptoms flu vaccine AdvReac Intermediate redness Uncoded 07/13/20 19:05 - Social History Does the pt smoke?: No Smoking Status: Never smoker Does the pt drink ETOH?: No Does the pt have substance abuse?: No - Immunizations Immunizations are current?: No Immunizations: TDAP >10years/unknown - POLST Patient has POLST: No PD ED PE NORMAL - Vitals Vital signs reviewed: Yes - General General: No acute distress, Other (She is alert and oriented to person and place, she now knows the rough time of day. 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 mild- baseline per ) GCS Score: 14 - Psych Psych: Normal mood, Normal affect Results - Vitals Vitals: Vital Signs - 24 hr 02/07/13/20 07/13/20 19:05 19:13 21:13 Temperature 36.6 C 36.6 C 36.6 C Heart Rate 62 62 60 Respiratory 16 16 16 Rate Blood Pressure 152/60 H 152/60 H 142/62 H O2 Saturation 96 96 98 07/13/20 21:34 Temperature Heart Rate 65 Respiratory 18 Rate Blood Pressure 179/77 H O2 Saturation 98 Oxygen O2 Source Room air - Labs Labs: Laboratory Tests 07/13/20 07/13/20 07/13/20 19:35 19:35 21:49 WBC 7.0 RBC 4.99 Hgb 14.1 Hct 44.0 MCV 88.2 MCH 28.3 MCHC 32.0 RDW 13.2 Plt Count 215 MPV 9.3 Neut # (Auto) 4.4 Lymph # (Auto) 1.9 Villalba # (Auto) 0.6 Eos # (Auto) 0.1 Baso # (Auto) 0.1 Absolute Nucleated RBC 0.00 Nucleated RBC % 0.0 Sodium 138 Potassium 4.0 Chloride 103 Carbon Dioxide 26 Anion Gap 9.0 BUN 23 H Creatinine 0.8 Estimated GFR (MDRD) 68 L Glucose 113 H Calcium 9.7 Magnesium 1.9 Total Bilirubin 0.6 AST 16 ALT 16 Alkaline Phosphatase 105 Total Protein 6.8 Albumin 4.0 Globulin 2.8 Albumin/Globulin Ratio 1.4 Urine Color YELLOW Urine Clarity CLEAR Urine pH 6.5 Ur Specific [place] 1.020 Urine Protein NEGATIVE Urine Glucose (UA) NEGATIVE Urine Ketones NEGATIVE Urine Occult Blood NEGATIVE Urine Nitrite NEGATIVE Urine Bilirubin NEGATIVE Urine Urobilinogen 0.2 (NORMAL) Ur Leukocyte Esterase TRACE H Urine RBC 0-5 Urine WBC 0-3 Ur Squamous Epith Cells NONE SEEN Urine Bacteria None Seen Ur Microscopic Review INDICATED Urine Culture Comments INDICATED Ethyl Alcohol < 5.0 PD MEDICAL DECISION MAKING - ED course ED course: This is an 85-year-old woman who presented with an episode of somnolence and slurred speech and altered mental status today. Really did not seem consistent with a TIA. Discussed with the that this may be just natural p rogression of dementia, that said she does have urinary urgency and a positive urinalysis which given the urinary urgency I think we should go ahead and treat. Otherwise her blood work and CT were unremarkable. Departure - Departure Disposition: 01 Home, Self Care Clinical Impression: UTI (urinary tract infection) Qualifiers: Urinary tract infection type: acute cystitis Hematuria presence: without hematuria Qualified Code(s): N30.00 - Acute cystitis without hematuria Dementia Qualifiers: Dementia type: unspecified type Dementia behavioral disturbance: with behavioral disturbance Qualified Code(s): F03.91 - Unspecified dementia with behavioral disturbance Condition: Stable Record reviewed to determine appropriate education?: Yes Instructions: ED Dementia Caregiver Support, ED UTI Cystitis Female Prescriptions: Nitrofurantoin Monohyd/M-Cryst [Macrobid 100 mg Capsule] 100 mg PO BID #10 cap Comments: Call your doctor to arrange a follow-up appointment, make the next available appointment. In the interim, return anytime if worse or if new symptoms develop.
[2020-07-13 19:43] LABS: BASOPHILS # (AUTO) 0.1 10^3/uL (0.0-0.1); BASOPHILS % (AUTO) 0.7 %; EOSINOPHILS # (AUTO) 0.1 10^3/uL (0.0-0.7); EOSINOPHILS % (AUTO) 0.9 %; HGB - HEMOGLOBIN 14.1 g/dL (12.0-16.0); LYMPHOCYTES # (AUTO) 1.9 10^3/uL (1.5-3.5); LYMPHOCYTES % (AUTO) 26.8 %; MEAN CORPUSCULAR HEMOGLOBIN 28.3 pg (27.0-31.0); MEAN CORPUSCULAR VOLUME 88.2 fL (81.0-99.0); MEAN PLATELET VOLUME 9.3 fL (7.9-10.8); MONOCYTES # (AUTO) 0.6 10^3/uL (0.0-1.0); MONOCYTES % (AUTO) 8.8 %; NEUTROPHILS # (AUTO) 4.4 10^3/uL (1.5-6.6); NEUTROPHILS % (AUTO) 62.5 %; PLT - PLATELET COUNT 215 10^3/uL (130-450); RED BLOOD COUNT 4.99 10^6/uL (4.20-5.40); RED CELL DISTRIBUTION WIDTH 13.2 % (12.0-15.0)
[2020-07-13 19:55] LABS: ALBUMIN/GLOBULIN RATIO 1.4 (1.0-2.2); ALKALINE PHOSPHATASE 105 IU/L (42-121); ALT ALANINE AMINOTRANSFERASE 16 IU/L (10-60); AST ASPARTATE AMINOTRANSFERASE 16 IU/L (10-42); BILIRUBIN,TOTAL 0.6 mg/dL (0.2-1.0); BUN - BLOOD UREA NITROGEN 23 mg/dL (6-20); CALCIUM 9.7 mg/dL (8.5-10.3); CARBON DIOXIDE - CO2 26 mmol/L (21-32); CHLORIDE 103 mmol/L (101-111); CREATININE 0.8 mg/dL (0.4-1.0); GLUCOSE 113 mg/dL (70-100); MAGNESIUM 1.9 mg/dL (1.7-2.8); TOTAL PROTEIN 6.8 g/dL (6.7-8.2)
--- NOTE | 2020-07-13 20:29 | CT Report ---
PROCEDURE: HEAD WO INDICATIONS: stroke like symptoms TECHNIQUE: Noncontrast 4.5 mm thick angled axial sections acquired from the foramen magnum to the vertex. For r adiation dose reduction, the following was used: automated exposure control, adjustment of mA and/or kV according to patient size. COMPARISON: 06/11/2020, 03/02/2020, 07/18/2019 FINDINGS: Image quality: Excellent. CSF spaces: Basal cisterns are patent. No extra-axial fluid collections. Ventricles are normal in size and shape. Brain: No midline shift. No intracranial masses or hemorrhage. Negro-white matter interface is norm al. Skull and face: Calvarium and visualized facial bones are intact, without suspicious lesions. 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 Sinuses: Visualized sinuses and mastoids are clear. IMPRESSION: No acute intracranial abnormality can be seen on this noncontrast head CT. No recurrent hemorrhage is detected. If there is strong clinical concern for a stroke, please consider a dedicated brain MRI for further e valuation (assuming that there is no contraindication to MRI). Reviewed by: Rylan Luque MD on 07/13/2020 7:28 PM [facility] Approved by: Rylan Luque MD on 07/13/2020 7:28 PM [facility] Station ID: [id number]
[2020-07-13 21:57] LABS: BILIRUBIN,URINE NEGATIVE (NEGATIVE); GLUCOSE, URINE (UA) NEGATIVE (NEGATIVE); KETONES,URINE (UA) NEGATIVE (NEGATIVE); LEUKOCYTE ESTERASE, URINE TRACE (NEGATIVE); NITRITE,URINE NEGATIVE (NEGATIVE); OCCULT BLOOD,URINE NEGATIVE (NEGATIVE); PH,URINE 6.5 PH (5.0-7.5); PROTEIN,URINE NEGATIVE (NEGATIVE); UROBILINOGEN,URINE 0.2 (NORMAL) E.U./dL (NORMAL)
[2020-07-13 21:58] LABS: CLARITY,URINE CLEAR (CLEAR)
[2020-07-13 22:00] LABS: BACTERIA,URINE None Seen /HPF (None Seen); RBC,URINE 0-5 /HPF (0-5); SQUAMOUS EPITHELIAL CELL,UR NONE SEEN (<= Few)
[2020-07-13] MEDS ORDERED: NITROFURANTOIN MACRO 100 MG CAPSULE PO STA (22:03)
[2020-07-13 22:22] VITALS: BP 143/68
== END 2020-07-13 22:21 | disposition home or self-care (01) ==
LOC: ED 19:00
DX: N30.00 Acute cystitis without hematuria (principal); F03.90 Unspecified dementia, unspecified severity, without behavioral disturbance, psychotic disturbance, mood disturbance, and anxiety; E11.9 Type 2 diabetes mellitus without complications
CPT/HCPCS: 36415; 70450; 80053; 81001; 83735; 85025; 87086; 99284; A9270; G0480; 80320; 81003

== ENCOUNTER 2020-08-14 13:38 | Outpatient (CLI) | payer MEDICARE, OTHER ==
--- NOTE | 2020-08-14 16:44 | CONSULTATION NOTE ---
Palliative Care Follow Up - Referral Referring Provider: Kourtney Baer PA-C Time of Visit: [id number] Referral setting: Home Referral Reason: Dementia/Advanced Care Planning - Information Sources Records reviewed: Previous records reviewed History/Review of Systems obtained from: Patient, Family (spouse, Esa) Exam limitations: Clinical condition (STM impairment) - History of Present Illness Update Brief HPI Update: This is an 85-year-old female who was seen and evaluated today within her home for follow-up due to symptoms of dementia and advanced care planning with her , Esa present. Please see detailed history dictated on 05/22/2020 and HPI for full details. The patient continues to have bouts of dizziness. There is no rhyme or reason for when she will have an attack of dizziness. She has been seen and evaluated by multiple specialists and tried different medications that have not been ef fective. She does have a history of frequent falls. She recently got a prescription and obtained a walker. However, she is not consistent about using it within the home reporting that it does not fit through the doorways however, this is not fully the case. She is being encouraged to utilize her walker for prevention of falls. Since last evaluation she also has a life alert from EDT in place. Her , Esa has also taken over managing her medications. She also now has a new clock with visualization of the date, time, and time of day to help keep her oriented. She continues to report chronic constipation however, has not initiated MiraLAX daily as previously recommended. She does have a history of dementia and was initiated on Aricept previously but did not find benefit and subsequently discontinued it. She was seen and evaluated by her PCP in June 2019 and was started on Namenda 10 mg daily. The patient has not noted any untoward 100 side effects however, both the nella feldman and her spouse do not note any change in her cognition or memory since initiation of the Namenda. Patient is seen in her living room, well groomed and articulate. No evidence of acute distress. Past Medical History: Patient has a past medical history of hyperlipidemia, TIA, PVCs, coronary artery disease, asthma, TIA, chronic dizziness, diabetes mellitus type 2, h ypothyroidism, mixed urinary incontinence, cervical stenosis of the spinal canal, HTN. Social History - Living Situation Living arrangement: At home Living Situation: With spouse/s.o. Support System: Patient grew up in [place]. Her family moving to the area and 1851. 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 She lives with her , Esa. They have no children. [place] [facility] [place]. Patient now has a life alert in place. She has a walker but is not consistent about using it. Her is managing her medications. Medications/Allergies - Medications Home Medications: Ambulatory Orders Medication Instructions Recorded Confirmed Levothyroxine [Synthroid] 25 mcg PO DAILY 01/10/13 07/13/20 Latanoprost [Xalatan] 1 drops EACHEYE QPM 11/10/15 07/13/20 Atorvastatin [Lipitor] 15 mg PO DAILY 12/20/17 07/13/20 Magnesium 250 mg PO DAILY PRN 12/20/17 07/13/20 Clobetasol Propionate 1 applic TD BID PRN 01/21/18 07/13/20 Aspirin [Adult Aspirin Regimen] 81 mg PO BID 04/12/19 07/13/20 Cholecalciferol (Vitamin D3) 2,000 unit PO DAILY 04/12/19 07/13/20 [Vitamin D3] Fluticasone [Flonase] 1 spray KELVIN BID PRN 04/12/19 07/13/20 Ketotifen Fumarate [Alaway] 1 drp EACHEYE BID PRN 04/12/19 07/13/20 Menthol [Biofreeze] 1 applic TOP PRN PRN 04/12/19 07/13/20 Naproxen Sodium [Aleve] 220 mg PO PRN PRN 04/12/19 07/13/20 Esomeprazole Magnesium [Nexium] 20 mg PO QPM 07/04/19 07/13/20 Chelated Potassium 99 mg PO DAILY 05/23/20 06/11/20 Gabapentin [Neurontin] 300 mg PO PRN PRN 05/23/20 07/13/20 Spironolactone [Aldactone] 12.5 mg PO DAILY 05/23/20 07/13/20 Wal Zyr 10 mg PO DAILY 05/23/20 06/11/20 polyethylene glycoL 3350 [Miralax] 17 g PO DAILY 05/23/20 07/13/20 Memantine HCl [Namenda] 10 mg ORAL DAILY 08/14/20 08/14/20 - Allergies Allergies/Adverse Reactions: Allergies Allergy/AdvReac Type Severity Reaction Status Date / Time alcohol Allergy Intermediate unsure Verified 07/13/20 19:05 chocolate flavor Allergy Unknown Unknown Verified 07/13/20 19:05 Penicillins Allergy Unknown unknown Verified 07/13/20 19:05 Sulfa (Sulfonamide Allergy Unknown unknown Verified 07/13/20 19:05 Antibiotics) adhesive Allergy Unknown Verified 07/13/20 19:05 bee venom protein (honey bee) Allergy Unknown Verified 07/13/20 19:05 coconut Allergy Unknown Verified 07/13/20 19:05 grass pollen Allergy Unknown Verified 07/13/20 19:05 mussels Allergy Unknown Verified 07/13/20 19:05 mustard Allergy Unknown Verified 07/13/20 19:05 oxycodone Allergy Unknown Verified 07/13/20 19:05 pepper (genus Capsicum) Allergy Unknown Verified 07/13/20 19:05 [pepper] pollen extracts Allergy Unknown Verified 07/13/20 19:05 strawberry Allergy Unknown Verified 07/13/20 19:05 Tetanus Vaccines and Toxoid Allergy Unknown Verified 07/13/20 19:05 walnut Allergy Unknown Verified 07/13/20 19:05 JOHN Inhibitors AdvReac Intermediate dizzy Verified 07/13/20 19:05 ciprofloxacin [From Cipro] AdvReac Intermediate dizzy/light Verified 07/13/20 19:05 headed ciprofloxacin HCl * AdvReac Intermediate dizzy/light Verified 07/13/20 19:05 [From Cipro] headed codeine [Codeine] AdvReac Intermediate gi problems Verified 07/13/20 19:05 midazolam HCl * [From Versed] AdvReac Intermediate short term Verified 07/13/20 19:05 memory loss osorio pepppers Allergy Mild allergy Uncoded 07/13/20 19:05 symptoms flu vaccine AdvReac Intermediate redness Uncoded 07/13/20 19:05 Review of Systems - Constitutional Constitutional: reports: Weight stable (weight 179.2lb). denies: Fever, Poor appetite - Eyes Eyes: reports: Corrective lenses (+reading glasses) - Ears, Nose & Throat Ears, Nose & Throat: reports: Nasal discharge (chronic), Other (+Chronic dizziness, see HPI). denies: Hearing loss - Cardiovascular Cardiovascular: reports: Other (HTN with blood presures 137-150/62-73). denies: Palpitations, Chest pain - Respiratory Respiratory: denies: Cough - Gastrointestinal Gastrointestinal: reports: Constipation (chronic, has not started miralax as previously suggested on prior 2 occasions), Good appetite. denies: Abdominal pain, Vomiting - Genitourinary Genitourinary: reports: Incontinence (has interstim to right buttock that has not been effective in relieving her symptoms. Has also been on mybetriq and ditropan in the past.), Nocturia (once per night). denies: Dysuria - Musculoskeletal Musculoskeletal: reports: Back pain, Stiffness, Assistive devices (cane). denies: Joint pain - Integumentary Integumentary: denies: Rash - Neurological Neurological: reports: General weakness, Dizziness, Memory problems - Endocrine Endocrine: reports: Diabetes type 2, Hypothyroidism - Hematologic/Lymphatic Hematologic/Lymph: reports: Other (History of UTIs) - All Other Systems All Other Systems: reports: Reviewed and negative (ROS supplemented by patient's spouse, Esa.) Physical Exam - Vital Signs Temperature: 36.3 C Pulse Rate: 66 O2 Saturation: 97 (on RA) Blood Pressure: 154/78 (right arm) - Physical Exam General Appearance: positive: No acute distress, Alert, Other (well groomed) Eyes Bilateral: positive: Normal inspection ENT: positive: No signs of dehydration Neck: positive: Trachea midline Cardiovascular: positive: Regular rate & rhythm Respiratory: positive: No respiratory distress, Breath sounds nml Abdomen: positive: Non-tender, Soft, Nml bowel sounds, Obese Skin: positive: No symptoms Extremities: positive: No pedal edema, Other (difficulty rising from seated position in low chairs; wide based gait with ambulation without using her walker) Neurologic/Psychiatric: positive: Oriented x3 (STM impairment noted), Flat affect Palliative Care - POLST Patient has POLST: Yes POLST Status: DNR, Selective Treatment - Palliative Care Discussion: The patient's spouse has some underlying health concerns and this is bringing to the forefront for both the patient and her spouse advanced care planning. The patient herself after he recent visit of EMS to their home expresses that she has concerns of something were to happen to her than what would happen to her. Both the patient and her spouse do not have any children to gather or from a prior relationship. They are beginning to have discussions regarding advanced care planning and a meeting with a package crimper next week to redo there will as there former designated executive were is now . The patient's brother approximately a year ago after heroic measures and the patient when reviewing POLST today is clear that she does not wish to have CPR performed and has elected to be DN AR. She ultimately would wish to be comfortable and have a dignified within her home setting. At the present time, as her spouse is still living she wishes to weigh benefits versus burdens regarding interventions and treatments moving forward. She may wish to change her mind in the future if circumstances were to change regarding her 's presence. If something were to happen to her spouse she would prefer to avoid facility setting but recognizes that that may be a course of action if her proceeds her and . The patient and her spouse do not perceive a benefit at some of this time with initiation of Namenda. Introduced to the patient and spouse that dementia is a chronic, progressive disease course symptom presentation and advancement varies for each individual. Namenda can slow progression but it does not reverse the underlying cause. Impression and Recommendations - Palliative Care Impression: This is an 85-year-old female with Alzheimer's dementia, chronic dizziness of unknown etiology with further needs for advanced care planning. POLST introduced and completed today with the patient and her spouse. Recommendations/Counseling Done: 1. Alzheimer's dementia. Chronic. Progressive. Patient presently on Namenda 10 mg daily. Rereviewed purpose of Namenda and progression of dementia with both the patient and spouse today. Strongly encouraged the patient to utilize her walker for fall prevention. Patient now has a life alert button in place. Supportive listening provided. Given the patient's advanced age and chronic comorbidities a gradual decline is expected. 2. Chronic dizziness. Has been evaluated by multiple specialists including ENT, cardiology, and neurology. Unknown etiology. Continue to encourage changing positions slowly. Fall precautions. Encourage utilization of her walker. Continue avoidance of driving. 3. Hypertension. The patient continues to record her blood pressures on a daily basis. No acute outliers for elevation. Given the patient's underlying chronic dizziness would be hesitant to adjust her medication regimen at the present time. Continue to be followed by cardiology. 4. Constipation. Chronic, longstanding history. The patient sedentary lifestyle is contributing. We introduced again today utilization of MiraLAX 1 capful or 17 g nightly dissolved in 4 to 8 ounces of liquid. Continue to encourage oral hydration. Continue to monitor. 5. Advanced care planning. POLST introduced and completed today with the patient and her spouse with her electing DN AR, selective interventions, antibiotic use for symptom management and no artificial nutrition by tube. The patient's prior experience with end of life with her brother who in the last year is impacting her decisions with lack of CPR and no artificial nutrition by tube. The patient and her spouse have not fully teased out potential plans reguarding aging in place or if further caregiving needs were needed vs potential facility placement. Introduced these concepts today and to begin discussions between each constitution party. The patient and her spouse are meeting with a package crimper to update their will and advise that they designate a secondary healthcare power of hot mill roller for the patient in him planning for future unknowns given the patient's spouse's own health care concerns. Supportive listening provided. As today the groundwork for advanced care planning and the patient's POLST has been completed, the patient does not have further symptom burden that requires Palliative Care management at this present time. Will discharge from palliative care services. Patient and significant other are aware that palliative care is available if sudden change in condition or needs further support and assistance in advanced care planning. Palliative care is also available for problem solving as needed. Total time spent 61 minutes with greater than 50% of the spent in counseling and coordination of care with the patient and spouse; review of progression of dementia; introduction and completion of POLST; introduction of advanced care planning; and anticipatory guidance. Disclaimer: The chart note was formulated using voice recognition technology and unfortunately sound alike errors may occur.
== END 2020-08-14 13:39 | disposition home or self-care (01) ==
LOC: PC 13:38
PROVIDERS: ATTEND Nurse Practitioner Family
DX: Z51.5 Encounter for palliative care (principal); G30.9 Alzheimer's disease, unspecified; F02.80 Dementia in other diseases classified elsewhere, unspecified severity, without behavioral disturbance, psychotic disturbance, mood disturbance, and anxiety; R42 Dizziness and giddiness; I10 Essential (primary) hypertension; K59.00 Constipation, unspecified; E11.9 Type 2 diabetes mellitus without complications; Z66 Do not resuscitate
CPT/HCPCS: 99350

== ENCOUNTER 2020-09-05 09:16 | Outpatient (CLI) | payer MEDICARE, OTHER | END 2020-09-05 09:17 | disposition critical access hospital (66) | LOC: EMS 09:16 | DX: M25.561 Pain in right knee (principal); M25.552 Pain in left hip | CPT/HCPCS: A0425; A0429 ==

== ENCOUNTER 2020-09-05 09:25 | Emergency (ER) | payer MEDICARE, OTHER ==
--- NOTE | 2020-09-05 09:39 | ED Physician Documentation ---
PD HPI LOWER EXT INJURY - Stated complaint Stated Complaint: R KNEE PX - Chief complaint Chief Complaint: Trauma Ext - History obtained from History obtained from: Patient, EMS - Additional information Additional information: After getting off the toilet her Left knee collapsed and then landed on her right hip on a tile floor. Has no pain except if trying to move and she was unable to walk prior to arrival. Declines pain medication on initial evaluation. Of note she has a bladder stimulator in place and as such MRI is contraindicated. Review of Systems Ten Systems: 10 systems reviewed and negative Constitutional: denies: Fever, Chills Cardiac: denies: Chest pain / pressure, Palpitations Respiratory: denies: Dyspnea, Cough PD PAST MEDICAL HISTORY - Past Medical History Past Medical History: Yes Cardiovascular: High cholesterol, Coronary artery disease, Other Respiratory: Asthma Neuro: Dementia, TIA, Other Endocrine/Autoimmune: Type 2 diabetes, HyPOthyroidism GI: GERD : Incontinence HEENT: None Psych: None Musculoskeletal: Osteoarthritis Derm: None - Past Surgical History Past Surgical History: Yes General: Cholecystectomy, Appendectomy, Colonoscopy, Other Ortho: Shoulder arthroplasty /HARNESS BRUSHER: Hysterectomy, Oophrectomy, Other Cardiovascular: Cardiac catheterization HEENT: Cataracts Derm: Skin cancer surgery - Present Medications Home Medications: Ambulatory Orders Medication Instructions Recorded Confirmed Levothyroxine [Synthroid] 25 mcg PO DAILY 01/10/13 09/05/20 Latanoprost [Xalatan] 1 drops EACHEYE QPM 11/10/15 09/05/20 Atorvastatin [Lipitor] 15 mg PO DAILY 12/20/17 09/05/20 Magnesium 250 mg PO DAILY PRN 12/20/17 09/05/20 Clobetasol Propionate 1 applic TD BID PRN 01/21/18 09/05/20 Aspirin [Adult Aspirin Regimen] 81 mg PO BID 04/12/19 09/05/20 Cholecalciferol (Vitamin D3) 2,000 unit PO DAILY 04/12/19 09/05/20 [Vitamin D3] Fluticasone [Flonase] 1 spray KELVIN BID PRN 04/12/19 09/05/20 Ketotifen Fumarate [Alaway] 1 drp EACHEYE BID PRN 04/12/19 09/05/20 Menthol [Biofreeze] 1 applic TOP PRN PRN 04/12/19 09/05/20 Naproxen Sodium [Aleve] 220 mg PO PRN PRN 04/12/19 09/05/20 Esomeprazole Magnesium [Nexium] 20 mg PO QPM 07/04/19 09/05/20 Chelated Potassium 99 mg PO DAILY 05/23/20 09/05/20 Gabapentin [Neurontin] 300 mg PO PRN PRN 05/23/20 09/05/20 Spironolactone [Aldactone] 12.5 mg PO DAILY 05/23/20 09/05/20 Wal Zyr 10 mg PO DAILY 05/23/20 09/05/20 polyethylene glycoL 3350 [Miralax] 17 g PO DAILY 05/23/20 09/05/20 Memantine HCl [Namenda] 10 mg ORAL DAILY 08/14/20 09/05/20 Docusate Sodium 100Mg Capsule 100 mg PO BID #60 09/05/20 [Colace 100Mg Capsule] HYDROcod/ACETAM 5/325 [[place] 5/325] 1 - 2 tab PO Q6H PRN #15 tablet 09/05/20 Lactulose [Generlac] 10 gm PO QID PRN #300 ml 09/05/20 - Allergies Allergies/Adverse Reactions: Allergies Allergy/AdvReac Type Severity Reaction Status Date / Time alcohol Allergy Intermediate unsure Verified 09/05/20 09:35 chocolate flavor Allergy Unknown Unknown Verified 09/05/20 09:35 Penicillins Allergy Unknown unknown Verified 09/05/20 09:35 Sulfa (Sulfonamide Allergy Unknown unknown Verified 09/05/20 09:35 Antibiotics) adhesive Allergy Unknown Verified 09/05/20 09:35 bee venom protein (honey bee) Allergy Unknown Verified 09/05/20 09:35 coconut Allergy Unknown Verified 09/05/20 09:35 grass pollen Allergy Unknown Verified 09/05/20 09:35 mussels Allergy Unknown Verified 09/05/20 09:35 mustard Allergy Unknown Verified 09/05/20 09:35 oxycodone Allergy Unknown Verified 09/05/20 09:35 pepper (genus Capsicum) Allergy Unknown Verified 09/05/20 09:35 [pepper] pollen extracts Allergy Unknown Verified 09/05/20 09:35 strawberry Allergy Unknown Verified 09/05/20 09:35 Tetanus Vaccines and Toxoid Allergy Unknown Verified 09/05/20 09:35 walnut Allergy Unknown Verified 09/05/20 09:35 JOHN Inhibitors AdvReac Intermediate dizzy Verified 09/05/20 09:35 ciprofloxacin [From Cipro] AdvReac Intermediate dizzy/light Verified 09/05/20 09:35 headed ciprofloxacin HCl * AdvReac Intermediate dizzy/light Verified 09/05/20 09:35 [From Cipro] headed codeine [Codeine] AdvReac Intermediate gi problems Verified 09/05/20 09:35 midazolam HCl * [From Versed] AdvReac Intermediate short term Verified 09/05/20 09:35 memory loss osorio pepppers Allergy Mild allergy Uncoded 09/05/20 09:35 symptoms flu vaccine AdvReac Intermediate redness Uncoded 09/05/20 09:35 - Social History Does the pt smoke?: No Smoking Status: Never smoker Does the pt drink ETOH?: No Does the pt have substance abuse?: No - Immunizations Immunizations are current?: No Immunizations: TDAP >10years/unknown - POLST Patient has POLST: Yes PD ED PE NORMAL - Vitals Vital signs reviewed: Yes - General General: Alert and oriented X 3 (With some memory difficulties, especially short-term), No acute distress - HEENT HEENT: PERRL, EOMI - Neck Neck: Supple, no meningeal sign, No bony TTP - Cardiac Cardiac: RRR, No murmur - Respiratory Respiratory: No respiratory distress, Clear bilaterally - Abdomen Abdomen: Normal bowel sounds, Soft, Non tender - Back Back: No CVA TTP, No spinal TTP - Derm Derm: Normal color, Warm and dry - Extremities Extremities: Other (Both knees are mildly tender without effusions or limited range of motion. There is no deformity of either knee. With extreme internal rotation of the left hip she has pain but mild internal and external rotation is relatively painless. Laterally the hip is nontender on the left.) - Neuro 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, Normal speech Results - Vitals Vitals: Vital Signs - 24 hr 09/05/20 09/05/20 09/05/20 09:29 09:35 12:51 Temperature 36.0 C L Heart Rate 66 65 80 Respiratory 13 18 20 Rate Blood Pressure 174/74 H 174/74 H 163/88 H O2 Saturation 98 96 97 09/05/20 15:05 Temperature Heart Rate 80 Respiratory 17 Rate Blood Pressure 162/72 H O2 Saturation 94 Oxygen O2 Source Room air - EKG (time done) 1127 Rate: Rate (enter#) (60) Rhythm: NSR [place]: Normal Intervals: Prolonged CO QRS: Normal Ischemia: Normal ST segments PD MEDICAL DECISION MAKING - ED course ED course: This is a juan antonio 85-year-old woman with some level of dementia who fell today because her right knee gave out on her but then landed on the left hip. Brought in by ambulance for same. Clinically not too concerning for hip fracture but definitely some concern for same. X-rays of both knees and the left hip were without acute findings. After this she was able to get up and walk and bear weight on the left leg but with significant pain. A CT was done without evidence of fracture. Notes that MRI cannot be done due to her bladder stimulator. After hydrocodone though I watched her walk and although she winced she certainly could walk and bear weight many steps with the assistance of a walker. I spoke with her by phone who feels comfortable picking her up and taking care of her at home. I did offer social work consultation for respite SNF stay which was declined. Departure - Departure Disposition: Home, Self Care Clinical Impression: Contusion of left hip Qualifiers: Encounter type: initial encounter Qualified Code(s): S70.02XA - Contusion of left hip, initial encounter Condition: Good Record reviewed to determine appropriate education?: Yes Instructions: ED Contusion Hip Prescriptions: Docusate Sodium 100Mg Capsule [Colace 100Mg Capsule] 100 mg PO BID #60 Lactulose [Generlac] 10 gm PO QID PRN #300 ml PRN Reason: Constipation HYDROcod/ACETAM 5/325 [[place] 5/325] 1 - 2 tab PO Q6H PRN #15 tablet PRN Reason: Pain Comments: I expect you to rapidly improve for the next few days. If not significantly better by the end of the weekend please call your doctor on Wednesday for recheck, return for new or worsening symptoms. Discharge Date/Time: 09/05/20 17:04
--- OUTSIDE RECORDS SUMMARY | 2020-09-05 09:40 | EXTERNAL MEDICAL SUMMARY RPT | Continuity of Care Document ---
:1935 Demographics Phone Unavailable Preferred Language Unknown Marital Status Unknown Yazidi Affiliation Unknown Race Unknown Ethnic Group Unknown Author Organization [facility] Address [address] [phone] Phone Social History date description facility [phone]
--- NOTE | 2020-09-05 10:14 | XRAY Report ---
PROCEDURE: Knee 3 View BILAT INDICATIONS: hip injury TECHNIQUE: 3 views of the bilateral knee(s) were acquired. COMPARISON: None. FINDINGS: Bones: Mild to moderate tricompartmental osteoarthritis is seen bilaterally. No acute fractures or di slocations. No suspicious bony lesions. Soft tissues: No significant joint effusion. Chondrocalcinosis in medial and lateral femoral tibial compartments are seen. IMPRESSION: No acute fracture or dislocation. Mild to moderate bilateral tricompartmental osteoarthri tis and chondrocalcinosis. No significant joint effusion. Reviewed by: Hilario Acosta MD on 09/05/2020 9:12 AM GERARDO Approved by: Hilario Acosta MD on 09/05/2020 9:12 AM AKYAQUELIN Station ID: [id number]
--- NOTE | 2020-09-05 10:15 | XRAY Report ---
PROCEDURE: Hip w/Pelvis 2-3V LT INDICATIONS: knee pain TECHNIQUE: AP pelvis with lateral view(s) of the left hip(s). COMPARISON: None. FINDINGS: Bones: No fractures or dislocations. Bilateral hip joint osteoarthritic changes are seen. No evidenc e of avascular necrosis of femoral head. Pelvic ring appears intact. No suspicious bony lesions. De generative disc disease in visualized lower lumbar spine is seen. Soft tissues: The visualized bowel gas pattern is normal. No suspicious soft tissue calcifications. Possible pain management device is seen projecting in right gluteal region with tip projecting in l eft lower pelvis. IMPRESSION: Bilateral hip joint osteoarthritis. No acute left hip fracture or dislocation. No evidenc e of avascular necrosis. Reviewed by: Hilario Acosta MD on 09/05/2020 9:13 AM GERARDO Approved by: Hilario Acosta MD on 09/05/2020 9:13 AM GERARDO Station ID: [id number]
[2020-09-05 15:06] VITALS: BP 162/72
[2020-09-05] MEDS ORDERED: HYDROcod/ACETAM 5/325 MG TABLET PO STA (15:39)
--- NOTE | 2020-09-05 16:23 | CT Report ---
PROCEDURE: LOWER EXTREMITY WO - LT INDICATIONS: Hip injury TECHNIQUE: Noncontrast 3 mm axial sections acquired of the left hip, with coronal and sagittal reformats. COMPARISON: None. FINDINGS: Image quality: Excellent. Bones: No fracture identified. There is anatomic alignment. Degenerative vacuum phenomenon involving the left sacroiliac joint. Scattered subchondral sclerosis and spurring. Spurring at the left ischi al tuberosity suggesting chronic hamstring origin tendinopathy. Soft tissues: Intrapelvic contents grossly unremarkable. Dystrophic calcification seen at the greate r trochanter suggesting calcific tendinitis. Large amount of stool seen in the rectal vault. IMPRESSION: No fracture identified. If the patient's pain or other symptoms persist, consider further evaluation with MRI. Chronic degenerative changes as above. Reviewed by: Drake Miguel MD on 09/05/2020 4:22 PM PDT Approved by: Drake Miguel MD on 09/05/2020 4:22 PM PDT Station ID: [id number]
== END 2020-09-05 17:04 | disposition home or self-care (01) ==
LOC: EDUNIT# → ED 09:25
DX: S70.02XA Contusion of left hip, initial encounter (principal); W18.39XA Other fall on same level, initial encounter; Y93.89 Activity, other specified; Y92.002 Bathroom of unspecified non-institutional (private) residence as the place of occurrence of the external cause; E11.9 Type 2 diabetes mellitus without complications
CPT/HCPCS: 73502; 73562; 73700; 93005; 99283; 99284; A9270

== ENCOUNTER 2020-10-21 10:27 | Outpatient (CLI) | payer MEDICARE, OTHER | END 2020-10-21 10:28 | disposition critical access hospital (66) | LOC: EMS 10:27 | DX: R40.4 Transient alteration of awareness (principal) | CPT/HCPCS: A0425; A0429 ==

== ENCOUNTER 2020-10-21 10:36 | Emergency (ER) | payer MEDICARE, OTHER ==
[2020-10-21] MEDS ORDERED: SODIUM CHLORIDE 0.9% 1,000 ML IV STA (10:46)
--- NOTE | 2020-10-21 10:48 | ED Physician Documentation ---
History of Present Illness - Stated complaint Stated Complaint: ALOC - History obtained from History obtained from: Patient, EMS - Additonal information Additional information: Patient is brought to the emergency department by EMS for chief complaint of altered level of consciousness this morning. Medics state that they were called to the patient's home after her noticed the patient just "did not seem to be herself this morning". The patient has a history of some dementia, but is quite functional at home and usually gets up first thing in the morning and does chores and gets breakfast. However, the patient seemed to be less active and not as alert. Medics state that the patient has steadily improved throughout the transport and by the time of arrival, has been quite talkative and interactive. The patient denies any complaints other than just feeling generally weak. She states that she does not have any pain anywhere and has not had specific symptoms of illness, such as dysuria, nausea, or respiratory symptoms. No fevers or chills. The patient denies any recent medication changes or dose changes. Review of Systems Ten Systems: 10 systems reviewed and negative Constitutional: reports: Reviewed and negative Eyes: reports: Reviewed and negative Ears: reports: Reviewed and negative Nose: reports: Reviewed and negative Throat: reports: Reviewed and negative Cardiac: reports: Reviewed and negative Respiratory: reports: Reviewed and negative GI: reports: Reviewed and negative : reports: Reviewed and negative Skin: reports: Reviewed and negative Musculoskeletal: reports: Reviewed and negative Neurologic: reports: Generalized weakness, Altered mental status Psychiatric: reports: Reviewed and negative Endocrine: reports: Reviewed and negative Immunocompromised: reports: Reviewed and negative PD PAST MEDICAL HISTORY - Past Medical History Cardiovascular: High cholesterol, Coronary artery disease, Other Respiratory: Asthma Neuro: Dementia, TIA, Other Endocrine/Autoimmune: Type 2 diabetes, HyPOthyroidism GI: GERD : Incontinence HEENT: None Psych: None Musculoskeletal: Osteoarthritis Derm: None - Past Surgical History Past Surgical History: Yes General: Cholecystectomy, Appendectomy, Colonoscopy, Other Ortho: Shoulder arthroplasty /NON LINEAR EDITOR: Hysterectomy, Oophrectomy, Other Cardiovascular: Cardiac catheterization HEENT: Cataracts Derm: Skin cancer surgery - Present Medications Home Medications: Ambulatory Orders Medication Instructions Recorded Confirmed Levothyroxine [Synthroid] 25 mcg PO DAILY 01/10/13 10/21/20 Latanoprost [Xalatan] 1 drops EACHEYE QPM 11/10/15 10/21/20 Atorvastatin [Lipitor] 15 mg PO DAILY 12/20/17 10/21/20 Magnesium 250 mg PO DAILY PRN 12/20/17 10/21/20 Clobetasol Propionate 1 applic TD BID PRN 01/21/18 10/21/20 Aspirin [Adult Aspirin Regimen] 81 mg PO BID 04/12/19 10/21/20 Cholecalciferol (Vitamin D3) 2,000 unit PO DAILY 04/12/19 10/21/20 [Vitamin D3] Fluticasone [Flonase] 1 spray KELVIN BID PRN 04/12/19 10/21/20 Ketotifen Fumarate [Alaway] 1 drp EACHEYE BID PRN 04/12/19 10/21/20 Menthol [Biofreeze] 1 applic TOP PRN PRN 04/12/19 09/05/20 Naproxen Sodium [Aleve] 220 mg PO PRN PRN 04/12/19 10/21/20 Esomeprazole Magnesium [Nexium] 20 mg PO QPM 07/04/19 10/21/20 Chelated Potassium 99 mg PO DAILY 05/23/20 09/05/20 Gabapentin [Neurontin] 300 mg PO PRN PRN 05/23/20 09/05/20 Spironolactone [Aldactone] 12.5 mg PO DAILY 05/23/20 10/21/20 Wal Zyr 10 mg PO DAILY 05/23/20 10/21/20 polyethylene glycoL 3350 [Miralax] 17 g PO DAILY 05/23/20 09/05/20 Memantine HCl [Namenda] 10 mg ORAL DAILY 08/14/20 09/05/20 Docusate Sodium 100Mg Capsule 100 mg PO BID #60 09/05/20 [Colace 100Mg Capsule] HYDROcod/ACETAM 5/325 [[place] 5/325] 1 - 2 tab PO Q6H PRN #15 tablet 09/05/20 Lactulose [Generlac] 10 gm PO QID PRN #300 ml 09/05/20 - Allergies Allergies/Adverse Reactions: Allergies Allergy/AdvReac Type Severity Reaction Status Date / Time alcohol Allergy Intermediate unsure Verified 10/21/20 10:45 chocolate flavor Allergy Unknown Unknown Verified 10/21/20 10:45 Penicillins Allergy Unknown unknown Verified 10/21/20 10:45 Sulfa (Sulfonamide Allergy Unknown unknown Verified 10/21/20 10:45 Antibiotics) adhesive Allergy Unknown Verified 10/21/20 10:45 bee venom protein (honey bee) Allergy Unknown Verified 10/21/20 10:45 coconut Allergy Unknown Verified 10/21/20 10:45 grass pollen Allergy Unknown Verified 10/21/20 10:45 mussels Allergy Unknown Verified 10/21/20 10:45 mustard Allergy Unknown Verified 10/21/20 10:45 oxycodone Allergy Unknown Verified 10/21/20 10:45 pepper (genus Capsicum) Allergy Unknown Verified 10/21/20 10:45 [pepper] pollen extracts Allergy Unknown Verified 10/21/20 10:45 strawberry Allergy Unknown Verified 10/21/20 10:45 Tetanus Vaccines and Toxoid Allergy Unknown Verified 10/21/20 10:45 walnut Allergy Unknown Verified 10/21/20 10:45 JOHN Inhibitors AdvReac Intermediate dizzy Verified 10/21/20 10:45 ciprofloxacin [From Cipro] AdvReac Intermediate dizzy/light Verified 10/21/20 10:45 headed ciprofloxacin HCl * AdvReac Intermediate dizzy/light Verified 10/21/20 10:45 [From Cipro] headed codeine [Codeine] AdvReac Intermediate gi problems Verified 10/21/20 10:45 midazolam HCl * [From Versed] AdvReac Intermediate short term Verified 10/21/20 10:45 memory loss osorio pepppers Allergy Mild allergy Uncoded 09/05/20 09:35 symptoms flu vaccine AdvReac Intermediate redness Uncoded 09/05/20 09:35 - Social History Does the pt smoke?: No Smoking Status: Never smoker Does the pt drink ETOH?: No Does the pt have substance abuse?: No - Immunizations Immunizations are current?: No Immunizations: TDAP >10years/unknown - POLST Patient has POLST: Yes PD ED PE NORMAL - Vitals Vital signs reviewed: Yes - General General: Alert and oriented X 3, No acute distress, Well developed/nourished - HEENT HEENT: Atraumatic, PERRL, EOMI, Moist mucous membranes - Neck Neck: Supple, no meningeal sign - Cardiac Cardiac: RRR, No murmur, Strong equal pulses - Respiratory Respiratory: No respiratory distress, Clear bilaterally - Abdomen Abdomen: Soft, Non tender, Non distended - Derm Derm: Normal color, Warm and dry, No rash - Extremities Extremities: No deformity, No edema, No calf tenderness / cord - Neuro Neuro: security screener 2-12 intact, No motor deficit, No sensory deficit, Normal speech, Other (Patient is alert and conversant and answers questions appropriately. She gives a clear history without difficulty. No focal deficits.) - Psych Psych: Normal mood, Normal affect Results - Vitals Vitals: Vital Signs - 24 hr 10/21/20 10/21/20 10/21/20 10:45 11:03 12:57 Temperature 36.8 C 36.5 C Heart Rate 63 59 L 56 L Respiratory 18 16 16 Rate Blood Pressure 180/85 H 173/72 H 178/93 H O2 Saturation 98 95 96 Oxygen O2 Source Room air - Labs Labs: Laboratory Tests 10/21/20 10/21/20 10/21/20 10:55 10:55 11:32 WBC 6.7 RBC 4.99 Hgb 14.4 Hct 43.8 MCV 87.8 MCH 28.9 MCHC 32.9 RDW 13.2 Plt Count 222 MPV 9.3 Neut # (Auto) 4.5 Lymph # (Auto) 1.6 [place]acken # (Auto) 0.5 Eos # (Auto) 0.1 Baso # (Auto) 0.0 Absolute Nucleated RBC 0.00 Nucleated RBC % 0.0 Sodium 139 Potassium 4.2 Chloride 106 Carbon Dioxide 25 Anion Gap 8.0 BUN 28 H Creatinine 0.9 Estimated GFR (MDRD) 59 L Glucose 128 H Calcium 9.9 Total Bilirubin 0.8 AST 15 ALT 16 Alkaline Phosphatase 100 Total Protein 6.7 Albumin 4.0 Globulin 2.7 Albumin/Globulin Ratio 1.5 Lipase 17 L Urine Color YELLOW Urine Clarity HAZY Urine pH 7.0 Ur Specific [place] 1.015 Urine Protein NEGATIVE Urine Glucose (UA) NEGATIVE Urine Ketones NEGATIVE Urine Occult Blood NEGATIVE Urine Nitrite NEGATIVE Urine Bilirubin NEGATIVE Urine Urobilinogen 0.2 (NORMAL) Ur Leukocyte Esterase TRACE H Urine RBC 0-5 Urine WBC 4-5 Ur Squamous Epith Cells MANY Squamous H Amorphous Sediment Marked Urine Bacteria Many H Ur Microscopic Review INDICATED Urine Culture Comments NOT INDICATED PD MEDICAL DECISION MAKING - ED course Complexity details: reviewed results, re-evaluated patient, considered differential, d/w patient, d/w family ED course: The patient was actually quite alert in the emergency department and very able to answer questions. Given her symptoms earlier today, though, she was worked up labs, EKG, and urinalysis. Extensive work-up was largely negative, except for BUN, which was moderately elevated. , who had arrived at the ED, stated that patient was back at baseline now patient was without complaints, and I felt she was stable for discharge home. She was given IV fluids in the emergency department, and I have encouraged her to be sure to drink plenty of water, as some of her symptoms may have been due to dehydration. We discussed the usual indications for follow-up and return. Departure - Departure Disposition: 01 Home, Self Care Clinical Impression: Dehydration Altered mental status Qualifiers: Altered mental status type: unspecified Qualified Code(s): R41.82 - Altered mental status, unspecified Condition: Stable Instructions: ED Altered Loc, ED Dehydration Comments: Your labs and other tests look good. There is no evidence of a serious condition causing your symptoms today. You did show evidence of dehydration, however, and you have been treated for this. Please be sure to drink plenty of fluids at home to make sure you stay adequately hydrated. Discharge Date/Time: 10/21/20 12:57
[2020-10-21 11:03] LABS: BASOPHILS % (AUTO) 0.6 %; EOSINOPHILS # (AUTO) 0.1 10^3/uL (0.0-0.7); EOSINOPHILS % (AUTO) 1.2 %; HCT - HEMATOCRIT 43.8 % (37.0-47.0); HGB - HEMOGLOBIN 14.4 g/dL (12.0-16.0); LYMPHOCYTES # (AUTO) 1.6 10^3/uL (1.5-3.5); LYMPHOCYTES % (AUTO) 23.9 %; MEAN CORPUSCULAR HEMOGLOBIN 28.9 pg (27.0-31.0); MEAN CORPUSCULAR HGB CONC 32.9 g/dL (32.0-36.0); MEAN CORPUSCULAR VOLUME 87.8 fL (81.0-99.0); MEAN PLATELET VOLUME 9.3 fL (7.9-10.8); MONOCYTES # (AUTO) 0.5 10^3/uL (0.0-1.0); NEUTROPHILS # (AUTO) 4.5 10^3/uL (1.5-6.6); PLT - PLATELET COUNT 222 10^3/uL (130-450); RED BLOOD COUNT 4.99 10^6/uL (4.20-5.40); RED CELL DISTRIBUTION WIDTH 13.2 % (12.0-15.0); WHITE BLOOD COUNT 6.7 x10^3/uL (4.8-10.8)
--- OUTSIDE RECORDS SUMMARY | 2020-10-21 11:10 | EXTERNAL MEDICAL SUMMARY RPT | Continuity of Care Document ---
:1935 Demographics Phone Unavailable Preferred Language Unknown Marital Status Unknown Jehovah'S Witness Affiliation Unknown Race Unknown Ethnic Group Unknown Author Organization [facility] Address [address] [phone] Phone Allergies Encounters Medications Problems Results
[2020-10-21 11:15] LABS: ALBUMIN/GLOBULIN RATIO 1.5 (1.0-2.2); BILIRUBIN,TOTAL 0.8 mg/dL (0.2-1.0); CALCIUM 9.9 mg/dL (8.5-10.3); CREATININE 0.9 mg/dL (0.4-1.0); POTASSIUM 4.2 mmol/L (3.5-5.0); TOTAL PROTEIN 6.7 g/dL (6.7-8.2)
[2020-10-21 11:49] LABS: BILIRUBIN,URINE NEGATIVE (NEGATIVE); CLARITY,URINE HAZY (CLEAR); GLUCOSE, URINE (UA) NEGATIVE (NEGATIVE); KETONES,URINE (UA) NEGATIVE (NEGATIVE); LEUKOCYTE ESTERASE, URINE TRACE (NEGATIVE); NITRITE,URINE NEGATIVE (NEGATIVE); OCCULT BLOOD,URINE NEGATIVE (NEGATIVE); PROTEIN,URINE NEGATIVE (NEGATIVE); UROBILINOGEN,URINE 0.2 (NORMAL) E.U./dL (NORMAL)
[2020-10-21 12:03] LABS: AMORPHOUS SEDIMENT,UR Marked /LPF; BACTERIA,URINE Many /HPF (None Seen); RBC,URINE 0-5 /HPF (0-5); SQUAMOUS EPITHELIAL CELL,UR MANY Squamous (<= Few)
[2020-10-21 12:59] VITALS: BP 178/93
== END 2020-10-21 12:57 | disposition home or self-care (01) ==
LOC: EDUNIT# → ED 10:36
DX: R41.82 Altered mental status, unspecified (principal); E86.0 Dehydration; E11.9 Type 2 diabetes mellitus without complications
CPT/HCPCS: 36415; 80053; 81001; 81003; 83690; 85025; 87086; 93005; 96360; 99283

== ENCOUNTER 2020-11-01 09:35 | Outpatient (CLI) | payer MEDICARE, OTHER | END 2020-11-01 09:36 | disposition critical access hospital (66) | LOC: EMS 09:35 | DX: M54.9 Dorsalgia, unspecified (principal); R42 Dizziness and giddiness; R07.9 Chest pain, unspecified | CPT/HCPCS: A0425; A0427 ==

== ENCOUNTER 2020-11-01 09:45 | Emergency (ER) | payer MEDICARE, OTHER ==
--- NOTE | 2020-11-01 10:21 | ED Physician Documentation ---
History of Present Illness - Stated complaint Stated Complaint: CP/BACK PX - Chief complaint Chief Complaint: General - History obtained from History obtained from: Patient, Family, EMS - Additonal information Additional information: 85-year-old woman presents by ambulance for back pain. The story to me is a little different than that that was given to the nurse. She says she has chronic low back pain and this is worse last night than normal and radiating to the left side. Nurses notes state that it was left upper back pain radiating to the left breast. She declines medication for it. She does have a history of dementia so I think we are getting a little bit of historical drift. Her supportive is at the bedside Review of Systems Ten Systems: 10 systems reviewed and negative Constitutional: denies: Fever, Chills Eyes: reports: Reviewed and negative Ears: reports: Reviewed and negative Nose: reports: Reviewed and negative Throat: reports: Reviewed and negative PD PAST MEDICAL HISTORY - Past Medical History Cardiovascular: High cholesterol, Coronary artery disease, Other Respiratory: Asthma Neuro: Dementia, TIA, Other Endocrine/Autoimmune: Type 2 diabetes, HyPOthyroidism GI: GERD : Incontinence HEENT: None Psych: None Musculoskeletal: Osteoarthritis Derm: None - Past Surgical History Past Surgical History: Yes General: Cholecystectomy, Appendectomy, Colonoscopy, Other Ortho: Shoulder arthroplasty /[employer]: Hysterectomy, Oophrectomy, Other Cardiovascular: Cardiac catheterization HEENT: Cataracts Derm: Skin cancer surgery - Present Medications Home Medications: Ambulatory Orders Medication Instructions Recorded Confirmed Levothyroxine [Synthroid] 25 mcg PO DAILY 01/10/13 10/21/20 Atorvastatin [Lipitor] 20 mg PO DAILY 12/20/17 10/21/20 Aspirin [Adult Aspirin Regimen] 81 mg PO BID 04/12/19 10/21/20 Cholecalciferol (Vitamin D3) 2,000 unit PO DAILY 04/12/19 10/21/20 [Vitamin D3] Gabapentin [Neurontin] 300 mg PO PRN PRN 05/23/20 09/05/20 Spironolactone [Aldactone] 25 mg PO DAILY 05/23/20 10/21/20 Amlodipine Besylate [Norvasc] 2.5 mg DAILY 11/01/20 11/01/20 - Allergies Allergies/Adverse Reactions: Allergies Allergy/AdvReac Type Severity Reaction Status Date / Time alcohol Allergy Intermediate unsure Verified 11/01/20 11:16 chocolate flavor Allergy Unknown Unknown Verified 11/01/20 11:16 Penicillins Allergy Unknown unknown Verified 11/01/20 11:16 Sulfa (Sulfonamide Allergy Unknown unknown Verified 11/01/20 11:16 Antibiotics) adhesive Allergy Unknown Verified 11/01/20 11:16 bee venom protein (honey bee) Allergy Unknown Verified 11/01/20 11:16 coconut Allergy Unknown Verified 11/01/20 11:16 grass pollen Allergy Unknown Verified 11/01/20 11:16 mussels Allergy Unknown Verified 11/01/20 11:16 mustard Allergy Unknown Verified 11/01/20 11:16 oxycodone Allergy Unknown Verified 11/01/20 11:16 pepper (genus Capsicum) Allergy Unknown Verified 11/01/20 11:16 [pepper] pollen extracts Allergy Unknown Verified 11/01/20 11:16 strawberry Allergy Unknown Verified 11/01/20 11:16 Tetanus Vaccines and Toxoid Allergy Unknown Verified 11/01/20 11:16 walnut Allergy Unknown Verified 11/01/20 11:16 JOHN Inhibitors AdvReac Intermediate dizzy Verified 11/01/20 11:16 ciprofloxacin [From Cipro] AdvReac Intermediate dizzy/light Verified 11/01/20 11:16 headed ciprofloxacin HCl * AdvReac Intermediate dizzy/light Verified 11/01/20 11:16 [From Cipro] headed codeine [Codeine] AdvReac Intermediate gi problems Verified 11/01/20 11:16 midazolam HCl * [From Versed] AdvReac Intermediate short term Verified 11/01/20 11:16 memory loss osorio pepppers Allergy Mild allergy Uncoded 11/01/20 11:16 symptoms flu vaccine AdvReac Intermediate redness Uncoded 11/01/20 11:16 - Social History Does the pt smoke?: No Smoking Status: Never smoker Does the pt drink ETOH?: No Does the pt have substance abuse?: No - Immunizations Immunizations are current?: No Immunizations: TDAP >10years/unknown - POLST Patient has POLST: Yes PD ED PE NORMAL - Vitals Vital signs reviewed: Yes - General General: No acute distress, Well developed/nourished, Other (She is alert and oriented to person and place and reasonable but not great historian for recent events.) - HEENT HEENT: PERRL, EOMI - Neck Neck: Supple, no meningeal sign, No bony TTP - Cardiac Cardiac: RRR, No murmur - Respiratory Respiratory: No respiratory distress, Clear bilaterally - Abdomen Abdomen: Normal bowel sounds, Soft, Other (Mild left upper quadrant tenderness without surgical signs, no mass palpated.) - Back Back: No CVA TTP, No spinal TTP - Derm Derm: Normal color, Warm and dry - Neuro Neuro: No motor deficit, No sensory deficit, Normal speech Results - Vitals Vitals: Vital Signs - 24 hr 11/01/20 11/01/20 09:50 11:45 Temperature 36.2 C L 36.1 C L Heart Rate 70 62 Respiratory 16 14 Rate Blood Pressure 134/69 H 155/71 H O2 Saturation 93 95 Oxygen O2 Source Room air - EKG (time done) 0952 Rate: Rate (enter#) (61) Rhythm: NSR [place]: Normal Intervals: Normal OK QRS: Normal Ischemia: Normal ST segments - Labs Labs: Laboratory Tests 11/01/20 11/01/20 11/01/20 10:37 10:37 10:37 WBC 5.5 RBC 4.76 Hgb 13.4 Hct 41.9 MCV 88.0 MCH 28.2 MCHC 32.0 RDW 13.2 Plt Count 173 MPV 9.8 Neut # (Auto) 3.7 Lymph # (Auto) 1.4 L [place] # (Auto) 0.4 Eos # (Auto) 0.0 Baso # (Auto) 0.0 Absolute Nucleated RBC 0.00 Nucleated RBC % 0.0 Sodium 138 Potassium 4.2 Chloride 107 Carbon Dioxide 22 Anion Gap 9.0 BUN 30 H Creatinine 0.9 Estimated GFR (MDRD) 59 L Glucose 123 H Calcium 9.7 Total Bilirubin 0.7 AST 15 ALT 14 Alkaline Phosphatase 100 Troponin I High Sens 5.2 Total Protein 6.4 L Albumin 3.6 Globulin 2.8 Albumin/Globulin Ratio 1.3 Lipase 18 L Urine Color Urine Clarity Urine pH Ur Specific [place] Urine Protein Urine Glucose (UA) Urine Ketones Urine Occult Blood Urine Nitrite Urine Bilirubin Urine Urobilinogen Ur Leukocyte Esterase Ur Microscopic Review Urine Culture Comments 11/01/20 11:58 WBC RBC Hgb Hct MCV MCH MCHC RDW Plt Count MPV Neut # (Auto) Lymph # (Auto) [place] # (Auto) Eos # (Auto) Baso # (Auto) Absolute Nucleated RBC Nucleated RBC % Sodium Potassium Chloride Carbon Dioxide Anion Gap BUN Creatinine Estimated GFR (MDRD) Glucose Calcium Total Bilirubin AST ALT Alkaline Phosphatase Troponin I High Sens Total Protein Albumin Globulin Albumin/Globulin Ratio Lipase Urine Color YELLOW Urine Clarity CLEAR Urine pH 6.0 Ur Specific [place] 1.020 Urine Protein NEGATIVE Urine Glucose (UA) NEGATIVE Urine Ketones NEGATIVE Urine Occult Blood NEGATIVE Urine Nitrite NEGATIVE Urine Bilirubin NEGATIVE Urine Urobilinogen 0.2 (NORMAL) Ur Leukocyte Esterase NEGATIVE Ur Microscopic Review NOT INDICATED Urine Culture Comments NOT INDICATED PD MEDICAL DECISION MAKING - ED course ED course: This is a juan antonio but slightly demented 85-year-old man who presents with back pain. For me the pain is in the lumbar back but for the nurse it was in the upper back, likely related to some historical drift from dementia. Given the varied locations of complaints, the differential diagnosis was broad and includes aortic dissection, PE, AAA, renal colic, [place]. As such she was worked up thoroughly for these diagnoses without pertinent positive findings save degenerative disease in the back and some other incidental findings on CT imaging. She declined pain medication. IMPRESSION: 1. No evidence of pulmonary emboli. Mild ectasia of ascending thoracic aorta measures up to 3.9 cm in AP diameter. 2. Cardiomegaly, no pericardial effusion. No mediastinal or hilar lymphadenopathy. 3. Markedly elevated right hemidiaphragm with compressive atelectasis in adjacent right lung base. Scattered scarring/atelectasis in periphery of bilateral lung graves. No pleural effusion or pneumothorax. Airway is patent. 4. 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 IMPRESSION: 1. Mild constipation. No bowel obstruction or abnormal bowel wall thickening. No free fluid or free air. No abscess collection. 2. No renal stone or hydronephrosis. Bilateral renal cysts as above. Normal- appearing urinary bladder. 3. Elevation of right hemidiaphragm with right basilar atelectasis. 4. Degenerative disc disease throughout lower thoracic and lumbar spine as above. No acute compression fracture. Osteoarthritis throughout bony pelvis. No acute pelvic fracture or dislocation. Departure - Departure Disposition: 01 Home, Self Care Clinical Impression: Back pain Qualifiers: Back pain location: back pain in other location Chronicity: acute Qualified Code(s): M54.9 - Dorsalgia, unspecified Condition: Good Record reviewed to determine appropriate education?: Yes Instructions: ED Neck Back Pain General Comments: Thankfully there is no evidence of anything serious. Your check for blood jeff ts, vascular abnormalities, heart attack, kidney stones, UTI. We did find that she have degenerative disease that is extensive in your back. This is likely was causing the pain. Tylenol as needed for same. Return for new or worsening symptoms. Follow-up with your primary care physician.
--- OUTSIDE RECORDS SUMMARY | 2020-11-01 10:26 | EXTERNAL MEDICAL SUMMARY RPT | Continuity of Care Document ---
:1935 Demographics Phone Unavailable Preferred Language Unknown Marital Status Unknown Worship Affiliation Unknown Race Unknown Ethnic Group Unknown Author Organization [facility] Address [address] [phone] Phone Allergies Encounters Medications Problems Results
[2020-11-01 10:42] LABS: BASOPHILS % (AUTO) 0.7 %; EOSINOPHILS % (AUTO) 0.7 %; HCT - HEMATOCRIT 41.9 % (37.0-47.0); HGB - HEMOGLOBIN 13.4 g/dL (12.0-16.0); LYMPHOCYTES # (AUTO) 1.4 10^3/uL (1.5-3.5); LYMPHOCYTES % (AUTO) 25.2 %; MEAN CORPUSCULAR HEMOGLOBIN 28.2 pg (27.0-31.0); MEAN PLATELET VOLUME 9.8 fL (7.9-10.8); MONOCYTES # (AUTO) 0.4 10^3/uL (0.0-1.0); MONOCYTES % (AUTO) 6.5 %; NEUTROPHILS # (AUTO) 3.7 10^3/uL (1.5-6.6); NEUTROPHILS % (AUTO) 66.5 %; PLT - PLATELET COUNT 173 10^3/uL (130-450); RED BLOOD COUNT 4.76 10^6/uL (4.20-5.40); RED CELL DISTRIBUTION WIDTH 13.2 % (12.0-15.0); WHITE BLOOD COUNT 5.5 x10^3/uL (4.8-10.8)
[2020-11-01] MEDS ORDERED: IOVERSOL 320 100 ML VIAL IVP ONE ×2 (10:55→11:29)
[2020-11-01 10:56] LABS: ALBUMIN 3.6 g/dL (3.2-5.5); ALBUMIN/GLOBULIN RATIO 1.3 (1.0-2.2); BILIRUBIN,TOTAL 0.7 mg/dL (0.2-1.0); CALCIUM 9.7 mg/dL (8.5-10.3); CREATININE 0.9 mg/dL (0.4-1.0); POTASSIUM 4.2 mmol/L (3.5-5.0); TOTAL PROTEIN 6.4 g/dL (6.7-8.2)
--- NOTE | 2020-11-01 11:43 | CT Report ---
PROCEDURE: Abdomen/Pelvis W INDICATIONS: back pain CONTRAST: IV CONTRAST: Optiray 320 ml: 80 PO CONTRAST: *NO PO CONTRAST TECHNIQUE: After the administration of IV contrast, 5 mm thick sections acquired from the diaphragms to the symp hysis. 5 mm thick coronal and sagittal reformats were acquired. For radiation dose reduction, the f ollowing was used: automated exposure control, adjustment of mA and/or kV according to patient size. COMPARISON: None. FINDINGS: Image quality: Excellent. ABDOMEN: Lung bases: Markedly elevated right hemidiaphragm is seen with adjacent right basilar atelectasis. Pl ease refer to CT angiogram of chest report for more detailed findings. Solid organs: Liver and spleen are normal in size and enhancement. Gallbladder is not visualized blake ggestive of prior cholecystectomy. Biliary system is non dilated. Pancreas enhances normally. No a drenal nodules. Kidneys demonstrate normal size and enhancement, without hydronephrosis. Bilateral renal cortical cysts are seen measures up to 2.8 cm in size in upper pole of right kidney. Peritoneum and bowel: Bowel loops demonstrate normal wall thickness and caliber. No free fluid or a ir. Mild fecal stasis in the colon is seen. Appendix is not definitively identified. No evidence of a cute appendicitis or diverticulitis. No abscess collection. Nodes and vessels: No retroperitoneal or mesenteric adenopathy by size criteria. Aorta and inferior vena cava are normal in size. Moderate atherosclerotic disease throughout abdominal aorta is seen. Miscellaneous: No ventral hernias. PELVIS: Genitourinary: Bladder wall thickness is normal. Miscellaneous: No inguinal hernias or adenopathy. Bones: Possible pain management device is seen in right gluteal region, the leads are noted in left r etroperitoneal space. Degenerative disc disease throughout lower thoracic and lumbar spine is seen. G rade 1 anterolisthesis of L4 on L5 is noted. Vacuum disc phenomenon is seen at T12-L1, L3-4 and L4-5 levels. No acute vertebral body compression fracture. No suspicious bony lesion. Osteoarthritic yeung es are noted throughout bony pelvis. IMPRESSION: 1. Mild constipation. No bowel obstruction or abnormal bowel wall thickening. No free fluid or free a ir. No abscess collection. 2. No renal stone or hydronephrosis. Bilateral renal cysts as above. Normal-appearing urinary bladder . 3. Elevation of right hemidiaphragm with right basilar atelectasis. 4. Degenerative disc disease throughout lower thoracic and lumbar spine as above. No acute compressio n fracture. Osteoarthritis throughout bony pelvis. No acute pelvic fracture or dislocation. Reviewed by: Hilario Acosta MD on 11/01/2020 11:41 AM PDT Approved by: Hilario Acosta MD on 11/01/2020 11:41 AM PDT Station ID: [id number]
[2020-11-01 11:45] VITALS: BP 155/71
--- NOTE | 2020-11-01 11:50 | CT Report ---
PROCEDURE: ANGIO CHEST W/WO INDICATIONS: cHEST PAIN, pe PROTOCOL CONTRAST: IV CONTRAST: Optiray 320 ml: 80 PO CONTRAST: *NO PO CONTRAST TECHNIQUE: After the administration of intravenous contrast, 2 mm thick sections acquired from the pulmonary api vasquez to the posterior costophrenic angles. 3-dimensional maximum intensity projection (MIP) coronal a nd sagittal reformats were then acquired through the thorax. For radiation dose reduction, the follow ing was used: automated exposure control, adjustment of mA and/or kV according to patient size. COMPARISON: None. FINDINGS: Image quality: Excellent. Pulmonary arteries: Pulmonary arteries are normal in size, and demonstrate no intraluminal filling d efects to suggest central pulmonary embolism. Lungs and pleura: Markedly elevated right hemidiaphragm is seen with adjacent compressive atelectasis at right lung base. Scattered atelectasis in anterior lateral periphery of bilateral mid to lower sandra ng graves are also seen. 5 mm calcified granuloma is seen in anterior left lung base series 3 image 1 70. No pleural effusions or pneumothorax. Central and peripheral airways are patent. Mediastinum: Heart size is enlarged, without pericardial effusion. No mediastinal or hilar adenopat hy. Mild to moderate atherosclerotic calcifications are seen in thoracic aorta and coronary vessels. Ectasia of thoracic aorta is seen measures up to 2.9 cm in AP diameter. Esophagus is normal in calibe r, without hiatal hernia. Bones and chest wall: No suspicious bony lesions. Degenerative disc disease throughout thoracic spin e is seen with fluid osteophyte formation throughout thoracic spine concerning for diffuse idiopathic skeletal hyperostosis. No acute compression fracture or spondylolisthesis. No axillary or supraclavi cular adenopathy. The thyroid is normal in size and there are no incidental findings. Abdomen: Visualized upper abdominal solid organs appear normal in the early arterial phase of enhanc ement. IMPRESSION: 1. No evidence of pulmonary emboli. Mild ectasia of ascending thoracic aorta measures up to 3.9 cm in AP diameter. 2. Cardiomegaly, no pericardial effusion. No mediastinal or hilar lymphadenopathy. 3. Markedly elevated right hemidiaphragm with compressive atelectasis in adjacent right lung base. Sc attered scarring/atelectasis in periphery of bilateral lung graves. No pleural effusion or pneumothor ax. Airway is patent. 4. 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 Reviewed by: Hilario Acosta MD on 11/01/2020 11:49 AM PDT Approved by: Hilario Acosta MD on 11/01/2020 11:49 AM PDT Station ID: [id number]
[2020-11-01 12:04] LABS: BILIRUBIN,URINE NEGATIVE (NEGATIVE); CLARITY,URINE CLEAR (CLEAR); GLUCOSE, URINE (UA) NEGATIVE (NEGATIVE); KETONES,URINE (UA) NEGATIVE (NEGATIVE); LEUKOCYTE ESTERASE, URINE NEGATIVE (NEGATIVE); NITRITE,URINE NEGATIVE (NEGATIVE); OCCULT BLOOD,URINE NEGATIVE (NEGATIVE); PROTEIN,URINE NEGATIVE (NEGATIVE); UROBILINOGEN,URINE 0.2 (NORMAL) E.U./dL (NORMAL)
== END 2020-11-01 12:45 | disposition home or self-care (01) ==
LOC: EDUNIT# → ED 09:45
DX: M51.36 Other intervertebral disc degeneration, lumbar region (principal); M51.34 Other intervertebral disc degeneration, thoracic region; R10.812 Left upper quadrant abdominal tenderness; F03.90 Unspecified dementia, unspecified severity, without behavioral disturbance, psychotic disturbance, mood disturbance, and anxiety; E11.9 Type 2 diabetes mellitus without complications; Z79.82 Long term (current) use of aspirin
CPT/HCPCS: 36415; 71275; 74177; 80053; 81003; 83690; 84484; 85025; 93005; 99283; 99284; Q9967; 81001; 87086

== ENCOUNTER 2020-11-09 18:59 | Outpatient (CLI) | payer MEDICARE, OTHER | END 2020-11-09 19:00 | disposition EMS.NT | LOC: EMS 18:59 | DX: Z03.89 Encounter for observation for other suspected diseases and conditions ruled out (principal) ==

== ENCOUNTER 2020-12-17 15:32 | Outpatient (CLI) | payer MEDICARE, OTHER | END 2020-12-17 15:33 | disposition EMS.NT | LOC: EMS 15:32 | DX: Z03.89 Encounter for observation for other suspected diseases and conditions ruled out (principal) ==

== ENCOUNTER 2020-12-18 04:45 | Emergency (ER) | payer MEDICARE, OTHER ==
[2020-12-18] MEDS ORDERED: IBUPROFEN 400 MG TABLET PO STA (05:32)
[2020-12-18] MEDS ORDERED: GABAPENTIN 100 MG CAPSULE PO STA (05:32)
--- NOTE | 2020-12-18 05:42 | ED Physician Documentation ---
History of Present Illness - Stated complaint Stated Complaint: R HIP PX, LOW BACK PX - Chief complaint Chief Complaint: Ext Problem - History obtained from History obtained from: Patient, Family () - Additonal information Additional information: 85yF with dementia p/w witnessed fall from standing yesterday afternoon onto R knee and hip. no HT, no loc. patient was seen by ems in the home and elected not to go to the hospital since she was ambulating fine. this morning she woke with L hip and knee pain. she has chronic back pain and states her L back also was bothering her. patient was ambulatry to the car and on arrival to the emergency department she rates her pain at 0/10. Review of Systems Musculoskeletal: reports: Extremity pain, Joint pain PD PAST MEDICAL HISTORY - Past Medical History Past Medical History: Yes Cardiovascular: High cholesterol, Coronary artery disease, Other Respiratory: Asthma Neuro: Dementia, TIA, Other Endocrine/Autoimmune: Type 2 diabetes, HyPOthyroidism GI: GERD : Incontinence HEENT: None Psych: None Musculoskeletal: Osteoarthritis Derm: None - Past Surgical History Past Surgical History: Yes General: Cholecystectomy, Appendectomy, Colonoscopy, Other Ortho: Shoulder arthroplasty /[employer]: Hysterectomy, Oophrectomy, Other Cardiovascular: Cardiac catheterization HEENT: Cataracts Derm: Skin cancer surgery - Present Medications Home Medications: Ambulatory Orders Medication Instructions Recorded Confirmed Levothyroxine [Synthroid] 25 mcg PO DAILY 01/10/13 12/18/20 Atorvastatin [Lipitor] 20 mg PO DAILY 12/20/17 12/18/20 Aspirin [Adult Aspirin Regimen] 81 mg PO BID 04/12/19 12/18/20 Cholecalciferol (Vitamin D3) 2,000 unit PO DAILY 04/12/19 12/18/20 [Vitamin D3] Gabapentin [Neurontin] 300 mg PO PRN PRN 05/23/20 12/18/20 Spironolactone [Aldactone] 25 mg PO DAILY 05/23/20 12/18/20 Amlodipine Besylate [Norvasc] 2.5 mg DAILY 11/01/20 12/18/20 - Allergies Allergies/Adverse Reactions: Allergies Allergy/AdvReac Type Severity Reaction Status Date / Time alcohol Allergy Intermediate unsure Verified 11/01/20 11:16 chocolate flavor Allergy Unknown Unknown Verified 11/01/20 11:16 Penicillins Allergy Unknown unknown Verified 11/01/20 11:16 Sulfa (Sulfonamide Allergy Unknown unknown Verified 11/01/20 11:16 Antibiotics) adhesive Allergy Unknown Verified 11/01/20 11:16 bee venom protein (honey bee) Allergy Unknown Verified 11/01/20 11:16 coconut Allergy Unknown Verified 11/01/20 11:16 grass pollen Allergy Unknown Verified 11/01/20 11:16 mussels Allergy Unknown Verified 11/01/20 11:16 mustard Allergy Unknown Verified 11/01/20 11:16 oxycodone Allergy Unknown Verified 11/01/20 11:16 pepper (genus Capsicum) Allergy Unknown Verified 11/01/20 11:16 [pepper] pollen extracts Allergy Unknown Verified 11/01/20 11:16 strawberry Allergy Unknown Verified 11/01/20 11:16 Tetanus Vaccines and Toxoid Allergy Unknown Verified 11/01/20 11:16 walnut Allergy Unknown Verified 11/01/20 11:16 JOHN Inhibitors AdvReac Intermediate dizzy Verified 11/01/20 11:16 ciprofloxacin [From Cipro] AdvReac Intermediate dizzy/light Verified 11/01/20 11:16 headed ciprofloxacin HCl * AdvReac Intermediate dizzy/light Verified 11/01/20 11:16 [From Cipro] headed codeine [Codeine] AdvReac Intermediate gi problems Verified 11/01/20 11:16 midazolam HCl * [From Versed] AdvReac Intermediate short term Verified 11/01/20 11:16 memory loss osorio pepppers Allergy Mild allergy Uncoded 11/01/20 11:16 symptoms flu vaccine AdvReac Intermediate redness Uncoded 11/01/20 11:16 - Social History Does the pt smoke?: No Smoking Status: Never smoker Does the pt drink ETOH?: No Does the pt have substance abuse?: No - Immunizations Immunizations are current?: No Immunizations: TDAP >10years/unknown - POLST Patient has POLST: Yes PD ED PE NORMAL - Vitals Vital signs reviewed: Yes - General General: Alert and oriented X 3, No acute distress, Well developed/nourished - HEENT HEENT: Atraumatic, PERRL, EOMI - Neck Neck: No bony TTP - Back Back: No spinal TTP - Derm Derm: Normal color, Warm and dry - Extremities Extremities: No deformity, Normal ROM s pain, Other (L knee discomfort with flexion. neg ant drawer sign, terrell, valgus/varus without laxity or pain. 2+ BL DP pulses) - Neuro 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, No motor deficit, No sensory deficit Results - Vitals Vitals: Vital Signs - 24 hr 12/18/20 12/18/20 04:54 04:57 Temperature 36.7 C 36.7 C Heart Rate 67 67 Respiratory 16 16 Rate Blood Pressure 131/70 H 131/70 H O2 Saturation 94 94 Oxygen O2 Source Room air PD MEDICAL DECISION MAKING - ED course ED course: 85yF presents with body aches after a fall yesterday, improved in the ED. XRs noncontributory. plan to f/u outpatient pmd for referral to PT. return precautions given. Departure - Departure Disposition: 01 Home, Self Care Clinical Impression: Fall, Pain in extremity Condition: Good Instructions: ED RICE Comments: You were seen in the emergency department for evaluation of joint pain after a fall. Your xrays showed no traumatic injury. please follow up with your primary doctor for referral to physical therapy. return to the ED if you have any new or worsening symptoms or other concerns.
[2020-12-18 07:11] VITALS: BP 135/72
--- NOTE | 2020-12-18 09:24 | XRAY Report ---
PROCEDURE: Knee 2 View LT INDICATIONS: knee pain s/p fall yesterd TECHNIQUE: 2 views of the left knee(s) were acquired. COMPARISON: None. FINDINGS: Bones: No fractures or dislocations. Decreased mineralization. Mildly decreased medial compartment j oint space. Trace lateral compartment chondrocalcinosis. Enthesophyte along the superior patellar kevin e. No suspicious bony lesions. Soft tissues: No joint effusion. No suspicious soft tissue calcifications. Trace atherosclerotic c alcification. IMPRESSION: 1. Intact left knee. 2. Slight chondrocalcinosis. 3. Concordant with preliminary report. Reviewed by: Mary Kate Patel MD on 12/18/2020 9:23 AM PDT Approved by: Mary Kate Patel MD on 12/18/2020 9:23 AM PDT Station ID: [id number]
--- NOTE | 2020-12-18 09:26 | XRAY Report ---
PROCEDURE: Hip w/Pelvis 2-3V LT INDICATIONS: mechanical fall yesterday TECHNIQUE: AP pelvis with lateral view(s) of the left hip(s). COMPARISON: None. FINDINGS: Bones: No fractures or dislocations. Mild degenerative joint space loss in the hips, left slightly g reater than right. Severe disc degeneration in the visible lower lumbar spine. Pelvic ring appears i ntact. No suspicious bony lesions. Soft tissues: The visualized bowel gas pattern is normal. Increased quantity of solid distal colonic and rectal stool. Transsacral nerve stimulator lead is present projecting over the left pelvis. No s uspicious soft tissue calcifications. Enthesopathy and dystrophic calcification adjacent to the grea ter trochanter. IMPRESSION: 1. No hip or pelvic fracture. 2. Mild hip joint and severe lower lumbar degeneration. Reviewed by: Mary Kate Patel MD on 12/18/2020 9:25 AM PDT Approved by: Mary Kate Patel MD on 12/18/2020 9:25 AM PDT Station ID: [id number]
== END 2020-12-18 07:10 | disposition home or self-care (01) ==
LOC: ED 04:45
DX: M25.552 Pain in left hip (principal); W18.30XA Fall on same level, unspecified, initial encounter; Y92.008 Other place in unspecified non-institutional (private) residence as the place of occurrence of the external cause; E11.9 Type 2 diabetes mellitus without complications; F03.90 Unspecified dementia, unspecified severity, without behavioral disturbance, psychotic disturbance, mood disturbance, and anxiety
CPT/HCPCS: 73502; 73560; 99283; A9270

== ENCOUNTER 2021-01-25 16:55 | Outpatient (CLI) | payer MEDICARE, OTHER | END 2021-01-25 16:56 | disposition critical access hospital (66) | LOC: EMS 16:55 | DX: R42 Dizziness and giddiness (principal) | CPT/HCPCS: A0425; A0429 ==

== ENCOUNTER 2021-01-25 17:02 | Emergency (ER) | payer MEDICARE, OTHER ==
[2021-01-25] MEDS ORDERED: SODIUM CHLORIDE 0.9% 1,000 ML IV STA (17:17)
--- NOTE | 2021-01-25 17:19 | ED Physician Documentation ---
PD HPI FOCAL NEURO - Stated complaint Stated Complaint: VERTIGO - Chief complaint Chief Complaint: Neuro - History obtained from History obtained from: Patient, EMS - Additional information Additional information: This is a juan antonio 85-year-old woman with chronic dizziness who presents by ambulance. Much of the initial history is from paramedics as the patient has significant short-term memory difficulty. Per the patient she is chronically dizzy and its not worse than any other day. She describes it as like being in clear Jell-O like everything soft and rounded. Reportedly has chronic vertigo and had increased vertigo this morning getting out of the shower and required assistance to get out of the shower. Now she feels back at her baseline. She does admit to urinary frequency. 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, Oophrectomy, Other Cardiovascular: Cardiac catheterization HEENT: Cataracts Derm: Skin cancer surgery - Present Medications Home Medications: Ambulatory Orders Medication Instructions Recorded Confirmed Levothyroxine [Synthroid] 25 mcg PO DAILY 01/10/13 12/18/20 Atorvastatin [Lipitor] 20 mg PO DAILY 12/20/17 12/18/20 Aspirin [Adult Aspirin Regimen] 81 mg PO BID 04/12/19 12/18/20 Cholecalciferol (Vitamin D3) 2,000 unit PO DAILY 04/12/19 12/18/20 [Vitamin D3] Gabapentin [Neurontin] 300 mg PO PRN PRN 05/23/20 12/18/20 Spironolactone [Aldactone] 25 mg PO DAILY 05/23/20 12/18/20 Amlodipine Besylate [Norvasc] 2.5 mg DAILY 11/01/20 12/18/20 - Allergies Allergies/Adverse Reactions: Allergies Allergy/AdvReac Type Severity Reaction Status Date / Time alcohol Allergy Intermediate unsure Verified 01/25/21 17:11 chocolate flavor Allergy Unknown Unknown Verified 01/25/21 17:11 Penicillins Allergy Unknown unknown Verified 01/25/21 17:11 Sulfa (Sulfonamide Allergy Unknown unknown Verified 01/25/21 17:11 Antibiotics) adhesive Allergy Unknown Verified 01/25/21 17:11 bee venom protein (honey bee) Allergy Unknown Verified 01/25/21 17:11 coconut Allergy Unknown Verified 01/25/21 17:11 grass pollen Allergy Unknown Verified 01/25/21 17:11 mussels Allergy Unknown Verified 01/25/21 17:11 mustard Allergy Unknown Verified 01/25/21 17:11 oxycodone Allergy Unknown Verified 01/25/21 17:11 pepper (genus Capsicum) Allergy Unknown Verified 01/25/21 17:11 [pepper] pollen extracts Allergy Unknown Verified 01/25/21 17:11 strawberry Allergy Unknown Verified 01/25/21 17:11 Tetanus Vaccines and Toxoid Allergy Unknown Verified 01/25/21 17:11 walnut Allergy Unknown Verified 01/25/21 17:11 JOHN Inhibitors AdvReac Intermediate dizzy Verified 01/25/21 17:11 ciprofloxacin [From Cipro] AdvReac Intermediate dizzy/light Verified 01/25/21 17:11 headed ciprofloxacin HCl * AdvReac Intermediate dizzy/light Verified 01/25/21 17:11 [From Cipro] headed codeine [Codeine] AdvReac Intermediate gi problems Verified 01/25/21 17:11 midazolam HCl * [From Versed] AdvReac Intermediate short term Verified 01/25/21 17:11 memory loss osorio pepppers Allergy Mild allergy Uncoded 01/25/21 17:11 symptoms flu vaccine AdvReac Intermediate redness Uncoded 01/25/21 17:11 - Social History Does the pt smoke?: No Smoking Status: Never smoker Does the pt drink ETOH?: No Does the pt have substance abuse?: No - Immunizations Immunizations are current?: No Immunizations: TDAP >10years/unknown - POLST Patient has POLST: Yes PD ED PE NORMAL - Vitals Vital signs reviewed: Yes - General General: Other (Alert and oriented to person and place and her long-term memory is good but short-term memory is poor.) - HEENT HEENT: PERRL, EOMI (No nystagmus) - Neck Neck: Supple, no meningeal sign, No bony TTP - Cardiac Cardiac: RRR, No murmur - Respiratory Respiratory: No respiratory distress, Clear bilaterally - Abdomen Abdomen: Normal bowel sounds, Soft, Non tender - Back Back: No CVA TTP, No spinal TTP - Derm Derm: Normal color, Warm and dry - Extremities Extremities: No edema, No calf tenderness / cord - Neuro Neuro: Normal speech Eye Opening: Spontaneous Motor: Obeys Commands Results - Vitals Vitals: Vital Signs - 24 hr 01/25/21 01/25/21 17:08 18:22 Temperature 37.2 C Heart Rate 61 57 L Respiratory 14 Rate Blood Pressure 158/74 H 170/72 H O2 Saturation 96 100 Oxygen O2 Source Room air - Labs Labs: Laboratory Tests 01/25/21 01/25/21 18:25 18:25 WBC 7.1 RBC 4.69 Hgb 13.5 Hct 41.8 MCV 89.1 MCH 28.8 MCHC 32.3 RDW 13.0 Plt Count 193 MPV 9.4 Neut # (Auto) 4.9 Lymph # (Auto) 1.5 Jackson # (Auto) 0.6 Eos # (Auto) 0.1 Baso # (Auto) 0.0 Absolute Nucleated RBC 0.00 Nucleated RBC % 0.0 Sodium 138 Potassium 4.0 Chloride 102 Carbon Dioxide 25 Anion Gap 11.0 BUN 24 H Creatinine 0.8 Estimated GFR (MDRD) 68 L Glucose 112 H Calcium 9.7 PD MEDICAL DECISION MAKING - ED course Complexity details: d/w family (Further history from the , she said to severe vertigo episodes today. This is a frequent occurrence for her and generally IV fluids are helpful. Otherwise there is no acute issue per se.) Departure - Departure Disposition: 01 Home, Self Care Clinical Impression: Dizziness Condition: Good Record reviewed to determine appropriate education?: Yes Instructions: ED Vertigo Unspecified Comments: Call your doctor to arrange a follow-up appointment, make the next available appointment. In the interim, return anytime if worse or if new symptoms develop.
[2021-01-25 18:22] VITALS: BP 170/72
[2021-01-25 18:32] LABS: BASOPHILS % (AUTO) 0.4 %; EOSINOPHILS # (AUTO) 0.1 10^3/uL (0.0-0.7); EOSINOPHILS % (AUTO) 0.8 %; HCT - HEMATOCRIT 41.8 % (37.0-47.0); HGB - HEMOGLOBIN 13.5 g/dL (12.0-16.0); LYMPHOCYTES # (AUTO) 1.5 10^3/uL (1.5-3.5); LYMPHOCYTES % (AUTO) 20.7 %; MEAN CORPUSCULAR HEMOGLOBIN 28.8 pg (27.0-31.0); MEAN CORPUSCULAR HGB CONC 32.3 g/dL (32.0-36.0); MEAN CORPUSCULAR VOLUME 89.1 fL (81.0-99.0); MEAN PLATELET VOLUME 9.4 fL (7.9-10.8); MONOCYTES # (AUTO) 0.6 10^3/uL (0.0-1.0); MONOCYTES % (AUTO) 7.8 %; NEUTROPHILS # (AUTO) 4.9 10^3/uL (1.5-6.6); PLT - PLATELET COUNT 193 10^3/uL (130-450); RED BLOOD COUNT 4.69 10^6/uL (4.20-5.40); WHITE BLOOD COUNT 7.1 x10^3/uL (4.8-10.8)
[2021-01-25 18:41] LABS: CALCIUM 9.7 mg/dL (8.5-10.3); CREATININE 0.8 mg/dL (0.4-1.0)
== END 2021-01-25 19:13 | disposition home or self-care (01) ==
LOC: EDUNIT# → EDBD → ED 17:02
DX: R42 Dizziness and giddiness (principal); E11.9 Type 2 diabetes mellitus without complications
CPT/HCPCS: 36415; 80048; 85025; 99283

== ENCOUNTER 2021-02-04 13:52 | Outpatient (CLI) | payer MEDICARE, OTHER | END 2021-02-04 13:53 | disposition critical access hospital (66) | LOC: EMS 13:52 | DX: R53.1 Weakness (principal); W18.30XA Fall on same level, unspecified, initial encounter; Y92.003 Bedroom of unspecified non-institutional (private) residence as the place of occurrence of the external cause; R41.0 Disorientation, unspecified | CPT/HCPCS: A0425; A0429 ==

== ENCOUNTER 2021-02-04 14:00 | Emergency (ER) | payer MEDICARE, OTHER ==
[2021-02-04 14:19] VITALS: BP 120/46
--- NOTE | 2021-02-04 14:53 | CT Report ---
PROCEDURE: HEAD WO INDICATIONS: Fall TECHNIQUE: Noncontrast 4.5 mm thick angled axial sections acquired from the foramen magnum to the vertex. For r adiation dose reduction, the following was used: automated exposure control, adjustment of mA and/or kV according to patient size. COMPARISON: 07/13/2020 FINDINGS: Image quality: Excellent. CSF spaces: Basal cisterns are patent. No extra-axial fluid collections. Ventricles are normal in size and shape. Brain: No midline shift. No intracranial masses or hemorrhage. Negro-white matter interface is norm al. Global cerebral volume loss and chronic microvascular ischemic changes, as seen on prior study. Skull and face: Calvarium and visualized facial bones are intact, without suspicious lesions. Sinuses: Visualized sinuses and mastoids are clear. IMPRESSION: No acute intracranial Reviewed by: Alex Gallo MD on 02/04/2021 2:51 PM PDT Approved by: Alex Gallo MD on 02/04/2021 2:51 PM PDT Station ID: [id number]
--- NOTE | 2021-02-04 15:02 | CT Report ---
PROCEDURE: CERVICAL SPINE WO INDICATIONS: fall TECHNIQUE: Noncontrast 3 mm thick sections acquired from the skull base to the T4 level. Sagittal and coronal r eformats were then constructed. For radiation dose reduction, the following was used: automated exp osure control, adjustment of mA and/or kV according to patient size. COMPARISON: Prior cervical spine CT, 03/02/2020, 07/18/2019, 4-18 Correlation is made with the accomp anying head CT, 01/04/2021. FINDINGS: Image quality: Excellent. Bones: No fractures or dislocations. Visualized superior ribs are intact. Prominent cervical spine degenerative changes are seen, with moderate to severe disc space narrowing at C4-C5, C5-C6, and C6-C7. Postvoid directed endplate osteophytes are seen, which are worst at C6-C7 . Focal degenerative change can also be seen involving the C1-C2 interface anteriorly. There is strai ghtening of the normal cervical lordosis. Soft tissues: Prevertebral soft tissues are normal in thickness. No paravertebral hematomas. No ap ical pneumothoraces. Atherosclerotic calcification is seen. IMPRESSION: No acute fracture is seen. At least moderate lower cervical spine degenerative changes are seen. Reviewed by: Rylan Luque MD on 02/04/2021 2:01 PM GERARDO Approved by: Rylan Luque MD on 02/04/2021 2:01 PM GERARDO Station ID: [id number]
--- NOTE | 2021-02-04 15:17 | ED Physician Documentation ---
History of Present Illness - Stated complaint Stated Complaint: GLF - Chief complaint Chief Complaint: General - History obtained from History obtained from: Patient, Family, EMS - History of Present Illness Timing: Today Pain level max: 0 Pain level now: 0 - Additonal information Additional information: 85-year-old female brought in by EMS after a ground-level fall today. She has dementia and states that she has no injuries. states that he saw her fall and she struck her head on the hardwood floor. Most of her body landed on the carpet. She tripped and fell. Nothing makes it better or worse. Not on anticoagulants. Review of Systems Unable to obtain: Dementia Constitutional: denies: Fever Cardiac: denies: Chest pain / pressure Respiratory: denies: Cough GI: denies: Vomiting, Diarrhea Skin: denies: Rash Musculoskeletal: denies: Neck pain, Back pain Neurologic: denies: Confused (Patient is at her normal mental baseline), LOC PD PAST MEDICAL HISTORY - Past Medical History Past Medical History: Yes Cardiovascular: High cholesterol, Coronary artery disease, Other Respiratory: Asthma Neuro: Dementia, TIA, Other Endocrine/Autoimmune: Type 2 diabetes, HyPOthyroidism GI: GERD : Incontinence HEENT: None Psych: None Musculoskeletal: Osteoarthritis Derm: None - Past Surgical History Past Surgical History: Yes General: Cholecystectomy, Appendectomy, Colonoscopy, Other 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, 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, Other Cardiovascular: Cardiac catheterization HEENT: Cataracts Derm: Skin cancer surgery - Present Medications Home Medications: Ambulatory Orders Medication Instructions Recorded Confirmed Levothyroxine [Synthroid] 25 mcg PO DAILY 01/10/13 12/18/20 Atorvastatin [Lipitor] 20 mg PO DAILY 12/20/17 12/18/20 Aspirin [Adult Aspirin Regimen] 81 mg PO BID 04/12/19 12/18/20 Cholecalciferol (Vitamin D3) 2,000 unit PO DAILY 04/12/19 12/18/20 [Vitamin D3] Gabapentin [Neurontin] 300 mg PO PRN PRN 05/23/20 12/18/20 Spironolactone [Aldactone] 25 mg PO DAILY 05/23/20 12/18/20 Amlodipine Besylate [Norvasc] 2.5 mg DAILY 11/01/20 12/18/20 - Allergies Allergies/Adverse Reactions: Allergies Allergy/AdvReac Type Severity Reaction Status Date / Time alcohol Allergy Intermediate unsure Verified 02/04/21 14:19 chocolate flavor Allergy Unknown Unknown Verified 02/04/21 14:19 Penicillins Allergy Unknown unknown Verified 02/04/21 14:19 Sulfa (Sulfonamide Allergy Unknown unknown Verified 02/04/21 14:19 Antibiotics) adhesive Allergy Unknown Verified 02/04/21 14:19 bee venom protein (honey bee) Allergy Unknown Verified 02/04/21 14:19 coconut Allergy Unknown Verified 02/04/21 14:19 grass pollen Allergy Unknown Verified 02/04/21 14:19 mussels Allergy Unknown Verified 02/04/21 14:19 mustard Allergy Unknown Verified 02/04/21 14:19 oxycodone Allergy Unknown Verified 02/04/21 14:19 pepper (genus Capsicum) Allergy Unknown Verified 02/04/21 14:19 [pepper] pollen extracts Allergy Unknown Verified 02/04/21 14:19 strawberry Allergy Unknown Verified 02/04/21 14:19 Tetanus Vaccines and Toxoid Allergy Unknown Verified 02/04/21 14:19 walnut Allergy Unknown Verified 02/04/21 14:19 JOHN Inhibitors AdvReac Intermediate dizzy Verified 02/04/21 14:19 ciprofloxacin [From Cipro] AdvReac Intermediate dizzy/light Verified 02/04/21 14:19 headed ciprofloxacin HCl * AdvReac Intermediate dizzy/light Verified 02/04/21 14:19 [From Cipro] headed codeine [Codeine] AdvReac Intermediate gi problems Verified 02/04/21 14:19 midazolam HCl * [From Versed] AdvReac Intermediate short term Verified 02/04/21 14:19 memory loss osorio pepppers Allergy Mild allergy Uncoded 02/04/21 14:19 symptoms flu vaccine AdvReac Intermediate redness Uncoded 02/04/21 14:19 - Social History Does the pt smoke?: No Smoking Status: Never smoker Does the pt drink ETOH?: No Does the pt have substance abuse?: No - Immunizations Immunizations are current?: No Immunizations: TDAP >10years/unknown - POLST Patient has POLST: Yes PD ED PE NORMAL - Vitals Vital signs reviewed: Yes - General General: No acute distress, Well developed/nourished, Other (Alert, oriented to person and place, not to time. 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, No motor deficit, No sensory deficit, Normal speech Eye Opening: Spontaneous Motor: Obeys Commands Verbal: Confused GCS Score: 14 Results - Vitals Vitals: Vital Signs - 24 hr 02/04/21 14:16 Temperature 97.6 C H Heart Rate 66 Respiratory 14 Rate Blood Pressure 120/46 L O2 Saturation 100 Oxygen O2 Source Room air - Rads (name of study) head CT Radiology: Final report received, EMP read contemporaneously, See rad report (No acute abnormality) cervical spine CT Radiology: Final report received, EMP read contemporaneously, See rad report (No acute abnormality) PD MEDICAL DECISION MAKING - ED course Complexity details: reviewed results, re-evaluated patient, considered differential, d/w patient ED course: 85-year-old female presents to the emergency department after a ground-level fall. No acute findings on head CT cervical spine CT. She is ambulating well, moving all joints without any pain. No indication for further imaging. She is at her normal mental baseline. Patient and family counseled regarding signs and symptoms for which I believe and urgent re-evaluation would be necessary. Patient with good understanding of and agreement to plan and is comfortable going home at this time This document was made in part using voice recognition software. While efforts are made to proofread this document, sound alike and grammatical errors may occur. Departure - Departure Disposition: 01 Home, Self Care Clinical Impression: Fall Qualifiers: Encounter type: initial encounter Qualified Code(s): W19.XXXA - Unspecified fall, initial encounter Head injury Qualifiers: Encounter type: initial encounter Qualified Code(s): S09.90XA - Unspecified injury of head, initial encounter Condition: Good Instructions: ED Head Injury Closed Follow-Up: Your,doctor in 1 week [Other] Comments: Return if you worsen Thankfully it does not appear that you have any injuries from your fall today. Please follow-up with your doctor as needed for further care.
== END 2021-02-04 15:35 | disposition home or self-care (01) ==
LOC: EDUNIT# → ED 14:00
DX: S09.90XA Unspecified injury of head, initial encounter (principal); W01.0XXA Fall on same level from slipping, tripping and stumbling without subsequent striking against object, initial encounter; F03.90 Unspecified dementia, unspecified severity, without behavioral disturbance, psychotic disturbance, mood disturbance, and anxiety; E11.9 Type 2 diabetes mellitus without complications
CPT/HCPCS: 99283; 99284

== ENCOUNTER 2021-02-05 08:24 | Outpatient (CLI) | payer MEDICARE, OTHER | END 2021-02-05 08:25 | disposition EMS.NT | LOC: EMS 08:24 | DX: Z03.89 Encounter for observation for other suspected diseases and conditions ruled out (principal) ==

== ENCOUNTER 2021-02-13 11:30 | Outpatient (CLI) | payer MEDICARE, OTHER ==
--- NOTE | 2021-02-13 14:37 | CONSULTATION NOTE ---
Palliative Care Follow Up - Referral Referring Provider: Kourtney Baer PA-C Time of Visit: [id number] Referral setting: Home Referral Reason: Dementia/Advanced Care Planning - Information Sources Records reviewed: Previous records reviewed History/Review of Systems obtained from: Patient, Family (spouse, Tai) Exam limitations: Clinical condition (Dementia) - History of Present Illness Update Brief HPI Update: This is an 85-year-old female who was seen and evaluated today within her home for her resumption of palliative care services due to advancing dementia and advance care planning with her spouse, Esa present. The patient began having difficulties with her memory approximately 5 years ago. She had found that her short term recall was impaired and she would consistently repeat questions. She was eventually seen and evaluated by a neurologist and obtain the diagnosis of Alzheimer's to be disease. She was then initiated on Aricept but did not find any benefit from this medication and was subsequently discontinued. The patient then was started on Namenda in the spring 2020 however, the patient and her spouse did not note any improvement in her memory and again, this was subsequently discontinued. The patient has a family history of dementia with her mother. The patient and her spouse both report that her memory has gotten progressively worse over the last few months. She does have a history of a TIA in approximately 2016 and another questionable incident since that time. She is p resently on aspirin 81 mg twice daily. Due to her advancing cognitive impairment and reasoning that has plummeted it has become increasingly difficult for the patient's spouse to care for the patient within the home environment. They have been looking at assisted living facilities and the plan is to transition to [facility] where they will subsequently move into a 2 bedroom to bath apartment on site where the patient can eventually transfer to the memory care unit if needed. The patient spouse also reports increased difficulty with the patient's balance. She is now utilizing her walker and if she does not utilize this than she often will be found on the floor. The spouse has needed to call lift assist 3 times in January 2021. They did trial caregivers from [facility] however, the patient herself did not care for these women. Therefore, the bulk of the caregiving has been left to the patient's spouse. The patient spouse reports increased sleeping during the day as well as generalized decreased oral intake. The patient is seen in her living room, well groomed and increased word finding difficulties noted since last evaluation. Unfortunately, she had an incontinent episode of stool during evaluation that resulted in this CASKET UPHOLSTERER assisting with pericare. Dr. Vega: back pain Dr. Chaidez: cardiology Dr. Claude Kapadia: urology Dr. Shukri De: neurology Dr. Justen Packer: ENT Past Medical History: Patient has a past medical history of hyperlipidemia, TIA, PVCs, coronary artery disease, asthma, TIA, chronic dizziness, diabetes mellitus type 2, hypothyroidism, mixed urinary incontinence, cervical stenosis of the spinal canal, HTN. Social History - Living Situation Living arrangement: At home Living Situation: With spouse/s.o. Support System: Patient grew up in [place]. Her family moving to the area and [address]51. 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 She lives with her , Esa. They have no children. [place] the [facility] [place]. Patient has a life alert. She has a walker and requires queing to use. is managing caregiving and medications. . Medications/Allergies - Medications Home Medications: Ambulatory Orders Medication Instructions Recorded Confirmed Levothyroxine [Synthroid] 25 mcg PO DAILY 01/10/13 12/18/20 Atorvastatin [Lipitor] 20 mg PO DAILY 12/20/17 12/18/20 Aspirin [Adult Aspirin Regimen] 81 mg PO BID 04/12/19 12/18/20 Cholecalciferol (Vitamin D3) 2,000 unit PO DAILY 04/12/19 12/18/20 [Vitamin D3] Gabapentin [Neurontin] 300 mg PO PRN PRN 05/23/20 12/18/20 Spironolactone [Aldactone] 12.5 mg PO DAILY 05/23/20 12/18/20 Amlodipine Besylate [Norvasc] 2.5 mg DAILY 11/01/20 12/18/20 Esomeprazole Magnesium [Nexium 1 cap PO DAILY 02/13/21 02/13/21 24Hr] Vitamin D 2,000 unit PO DAILY 02/13/21 Wal Zyr 1 tab PO DAILY 02/13/21 - Allergies Allergies/Adverse Reactions: Allergies Allergy/AdvReac Type Severity Reaction Status Date / Time alcohol Allergy Intermediate unsure Verified 02/04/21 14:19 chocolate flavor Allergy Unknown Unknown Verified 02/04/21 14:19 Penicillins Allergy Unknown unknown Verified 02/04/21 14:19 Sulfa (Sulfonamide Allergy Unknown unknown Verified 02/04/21 14:19 Antibiotics) adhesive Allergy Unknown Verified 02/04/21 14:19 bee venom protein (honey bee) Allergy Unknown Verified 02/04/21 14:19 coconut Allergy Unknown Verified 02/04/21 14:19 grass pollen Allergy Unknown Verified 02/04/21 14:19 mussels Allergy Unknown Verified 02/04/21 14:19 mustard Allergy Unknown Verified 02/04/21 14:19 oxycodone Allergy Unknown Verified 02/04/21 14:19 pepper (genus Capsicum) Allergy Unknown Verified 02/04/21 14:19 [pepper] pollen extracts Allergy Unknown Verified 02/04/21 14:19 strawberry Allergy Unknown Verified 02/04/21 14:19 Tetanus Vaccines and Toxoid Allergy Unknown Verified 02/04/21 14:19 walnut Allergy Unknown Verified 02/04/21 14:19 JOHN Inhibitors AdvReac Intermediate dizzy Verified 02/04/21 14:19 ciprofloxacin [From Cipro] AdvReac Intermediate dizzy/light Verified 02/04/21 14:19 headed ciprofloxacin HCl * AdvReac Intermediate dizzy/light Verified 02/04/21 14:19 [From Cipro] headed codeine [Codeine] AdvReac Intermediate gi problems Verified 02/04/21 14:19 midazolam HCl * [From Versed] AdvReac Intermediate short term Verified 02/04/21 14:19 memory loss osorio pepppers Allergy Mild allergy Uncoded 02/04/21 14:19 symptoms flu vaccine AdvReac Intermediate redness Uncoded 02/04/21 14:19 Review of Systems - Constitutional Constitutional: reports: Fatigue, Weight loss. denies: Fever - Eyes Eyes: reports: Corrective lenses (+reading glasses) - Ears, Nose & Throat Ears, Nose & Throat: reports: Other (+Chronic dizziness). denies: Hearing loss - Cardiovascular Cardiovascular: denies: Palpitations, Chest pain - Respiratory Respiratory: denies: Cough - Gastrointestinal Gastrointestinal: reports: Constipation (chronic), Other (Decreased oral intake and now with feccal incontinence). denies: Abdominal pain, Vomiting - Genitourinary Genitourinary: reports: Incontinence (has interstim to right buttock that has not been effective in relieving her symptoms. Has also been on mybetriq and ditropan in the past.). denies: Dysuria - Musculoskeletal Musculoskeletal: reports: Back pain, Stiffness, Assistive devices (+rollator), Transfer issues (frequently requires lift assist). denies: Joint pain - Neurological Neurological: reports: General weakness, Dizziness, Memory problems - Psychiatric Psychiatric: denies: Depression - Endocrine Endocrine: reports: Diabetes type 2, Hypothyroidism - Hematologic/Lymphatic Hematologic/Lymph: reports: Other (History of UTIs) - All Other Systems All Other Systems: reports: Reviewed and negative (ROS supplemented by patient's spouse, Esa.) Physical Exam - Vital Signs Temperature: 36.4 C Pulse Rate: 75 O2 Saturation: 96 (on RA) Blood Pressure: 110/52 (right arm) - Physical Exam General Appearance: positive: No acute distress, Alert, Other (well groomed) Eyes Bilateral: positive: Normal inspection ENT: positive: No signs of dehydration Neck: positive: Trachea midline Cardiovascular: positive: Regular rate & rhythm Respiratory: positive: No respiratory distress, Breath sounds nml. negative: Rales Abdomen: positive: Non-tender, Soft, Nml bowel sounds, Obese Skin: positive: Other (Evidence of maceration around with labia and around anus due to moisture associated with urinary incontinence. Applied barrier cream to affected areas.) Extremities: positive: No pedal edema, Other (difficulty rising from seated position in low chairs; wide based gait with ambulation without using her walker) Neurologic/Psychiatric: positive: Disoriented to time, Weakness, Flat affect, Other (+word finding issues noted) Palliative Care - POLST Patient has POLST: Yes POLST Status: DNR, Selective Treatment Performance Status: Demonstrating increased signs of functional and cognitive decline. Increased weakness requiring the need use of Rollator. Incontinent of bowel and bladder. Increased cueing. Increased word finding difficulties. FAS T 6E - Palliative Care Discussion: The patient is demonstrating increased cognitive and functional decline due to advancement of her Alzheimer's dementia. The patient's spouse has his home underlying health concerns and has a pending surgery. He is becoming increasingly difficult for the patient spouse to provide caregiving within the home environment and they have made the difficult decision to put their home on the market in the near future to then transition into assisted living environment. In the interim. The patient would benefit from caregiving assistance within the home environment as even upon demonstration today the patient is unable to provide hygiene care for herself and is at high fall risk and places her and her spouse in a precarious situation as they are both fragile and could potentially result in sequential sequelae. Discussed with the patient's spouse moving forward with assisted living environment is a sound decision and support provided. In the interim, Suggested to the patient spouse to refollow-up with [facility] for private caregiver list and provided list of local agencies that service the [place]. Impression and Recommendations - Palliative Care Impression: This is an 85-year-old female with Alzheimer's dementia that is progressing, FAS T6 E, chronic dizziness of unknown etiology with need for further caregiving oversight. Palliative care to continue to provide support, care coordination, and anticipatory guidance until the patient and her spouse transition to assisted living environment [place]. Recommendations/Counseling Done: 1. Alzheimer's dementia. Chronic. Progressive. Patient no longer on disease modifying agents as patient spouse did not find benefit from these medications. Fall precautions. Requires cueing. Life alert button in place. Appropriate to transition to assisted living environment and in the future Transition to memory care unit when appropriate. Review of progression of dementia with patient's spouse. Given the patient's advanced age and chronic comorbidities a gradual decline is expected. 2. Constipation. Chronic, longstanding history. Patient sedentary lifestyle is contributing. However, recently in increased improvement. 3. Chronic dizziness. Has been evaluated by multiple specialists including ENT, cardiology, neurology. Unknown etiology. Continue to encourage changing positions slowly. Fall precautions. Encourage utilization of walker. Spouse has utilized a lift assist after falls. 4. Caregiver burden. Patient spouse has underlying health concerns and providing role as primary caregiver is in becoming increasingly overwhelming. They have made the decision to relocate into an assisted living environment. In the interim. Recommendation made to obtain caregiving support And spouse to recontact [facility] for private caregiving list and provided list of local agencies that service would be [place] to contact as well. Patient is not left alone and always has someone present within the home environment. 5. Advanced care planning. POLST in place as DN AR with selective interventions. Patient is appropriate for transfer to assisted living environment and spouse recognizes that this is appropriate however, difficult decision to make this transition not only emotionally but financially as well. Total time spent 60 minutes with greater than 50% of this spent in counseling and coordination of care with patient and spouse/DPOA; pericare assistance; review of progression of dementia and caregiving assistance; review of pain and symptom management and anticipatory guidance. Disclaimer: The chart note was formulated using voice recognition technology and unfortunately sound alike errors may occur.
== END 2021-02-13 11:31 | disposition home or self-care (01) ==
LOC: PC 11:30
PROVIDERS: ATTEND Nurse Practitioner Family
DX: Z51.5 Encounter for palliative care (principal); G30.9 Alzheimer's disease, unspecified; F02.80 Dementia in other diseases classified elsewhere, unspecified severity, without behavioral disturbance, psychotic disturbance, mood disturbance, and anxiety; R23.8 Other skin changes; R32 Unspecified urinary incontinence; R42 Dizziness and giddiness; K59.00 Constipation, unspecified; Z79.899 Other long term (current) drug therapy; Z79.82 Long term (current) use of aspirin; Z91.81 History of falling; Z86.73 Personal history of transient ischemic attack (TIA), and cerebral infarction without residual deficits; Z74.1 Need for assistance with personal care; Z66 Do not resuscitate
CPT/HCPCS: 99350

== ENCOUNTER 2021-02-14 13:03 | Outpatient (CLI) | payer MEDICARE, OTHER | END 2021-02-14 13:04 | disposition EMS.NT | LOC: EMS 13:03 | DX: Z03.89 Encounter for observation for other suspected diseases and conditions ruled out (principal) ==

== ENCOUNTER 2021-02-15 22:42 | Outpatient (CLI) | payer MEDICARE, OTHER | END 2021-02-15 22:43 | disposition EMS.NT | LOC: EMS 22:42 | DX: Z03.89 Encounter for observation for other suspected diseases and conditions ruled out (principal) ==

== ENCOUNTER 2021-02-16 16:31 | Outpatient (CLI) | payer MEDICARE, OTHER | END 2021-02-16 16:32 | disposition EMS.NT | LOC: EMS 16:31 | DX: Z03.89 Encounter for observation for other suspected diseases and conditions ruled out (principal) ==

== ENCOUNTER 2021-02-17 19:40 | Outpatient (CLI) | payer MEDICARE, OTHER | END 2021-02-17 19:41 | disposition EMS.NT | LOC: EMS 19:40 | DX: Z03.89 Encounter for observation for other suspected diseases and conditions ruled out (principal) ==

== ENCOUNTER 2021-02-18 09:59 | Outpatient (CLI) | payer MEDICARE, OTHER | END 2021-02-18 10:00 | disposition critical access hospital (66) | LOC: EMS 09:59 | DX: R41.82 Altered mental status, unspecified (principal) | CPT/HCPCS: A0425; A0427 ==

== ENCOUNTER 2021-02-18 10:07 | Emergency (ER) | payer MEDICARE, OTHER ==
[2021-02-18] MEDS ORDERED: SODIUM CHLORIDE 0.9% 1,000 ML IV STA (10:16)
--- NOTE | 2021-02-18 10:18 | ED Physician Documentation ---
History of Present Illness - Stated complaint Stated Complaint: LOC/DEMENTIA - History obtained from History obtained from: Patient, EMS - Additonal information Additional information: Patient is brought to the emergency department by EMS for chief complaint of altered mental status. According to EMS, the patient is staying at home with a caregiver currently because her , who usually takes care of her, is at [place] having a surgery and staying overnight. The caregiver is taking care of the patient for the first time, and felt that she seemed too drowsy, so sent her in. The medics are somewhat familiar with this patient and state that she does seem harder to arouse today than usual. No fevers reported. The patient is able to be aroused by this physician, and states that nothing is bothering her currently. She denies pain except in her left hip when she moves. No shortness of breath or cough. No chills. No dysuria. Patient has a history of dementia, but per medics, can generally converse, though often in a confused way. Review of Systems Ten Systems: 10 systems reviewed and negative Constitutional: reports: Reviewed and negative Eyes: reports: Reviewed and negative Ears: reports: Reviewed and negative Nose: reports: Reviewed and negative Throat: reports: Reviewed and negative Cardiac: reports: Reviewed and negative Respiratory: reports: Reviewed and negative GI: reports: Reviewed and negative : reports: Reviewed and negative Skin: reports: Reviewed and negative Musculoskeletal: reports: Reviewed and negative Neurologic: reports: Reviewed and negative Psychiatric: reports: Reviewed and negative Endocrine: reports: Reviewed and negative Immunocompromised: reports: Reviewed and negative PD PAST MEDICAL HISTORY - Past Medical History Cardiovascular: High cholesterol, Coronary artery disease, Other Respiratory: Asthma Neuro: Dementia, TIA, Other Endocrine/Autoimmune: Type 2 diabetes, HyPOthyroidism GI: GERD : Incontinence HEENT: None Psych: None Musculoskeletal: Osteoarthritis Derm: None - Past Surgical History Past Surgical History: Yes General: Cholecystectomy, Appendectomy, Colonoscopy, Other Ortho: Shoulder arthroplasty /HEADER DOCK: Hysterectomy, Oophrectomy, Other Cardiovascular: Cardiac catheterization HEENT: Cataracts Derm: Skin cancer surgery - Present Medications Home Medications: Ambulatory Orders Medication Instructions Recorded Confirmed Levothyroxine [Synthroid] 25 mcg PO DAILY 01/10/13 12/18/20 Atorvastatin [Lipitor] 20 mg PO DAILY 12/20/17 12/18/20 Aspirin [Adult Aspirin Regimen] 81 mg PO BID 04/12/19 12/18/20 Cholecalciferol (Vitamin D3) 2,000 unit PO DAILY 04/12/19 12/18/20 [Vitamin D3] Gabapentin [Neurontin] 300 mg PO PRN PRN 05/23/20 12/18/20 Spironolactone [Aldactone] 12.5 mg PO DAILY 05/23/20 12/18/20 Amlodipine Besylate [Norvasc] 2.5 mg DAILY 11/01/20 12/18/20 Esomeprazole Magnesium [Nexium 1 cap PO DAILY 02/13/21 02/13/21 24Hr] Vitamin D 2,000 unit PO DAILY 02/13/21 Wal Zyr 1 tab PO DAILY 02/13/21 - Allergies Allergies/Adverse Reactions: Allergies Allergy/AdvReac Type Severity Reaction Status Date / Time alcohol Allergy Intermediate unsure Verified 02/18/21 10:22 chocolate flavor Allergy Unknown Unknown Verified 02/18/21 10:22 Penicillins Allergy Unknown unknown Verified 02/18/21 10:22 Sulfa (Sulfonamide Allergy Unknown unknown Verified 02/18/21 10:22 Antibiotics) adhesive Allergy Unknown Verified 02/18/21 10:22 bee venom protein (honey bee) Allergy Unknown Verified 02/18/21 10:22 coconut Allergy Unknown Verified 02/18/21 10:22 grass pollen Allergy Unknown Verified 02/18/21 10:22 mussels Allergy Unknown Verified 02/18/21 10:22 mustard Allergy Unknown Verified 02/18/21 10:22 oxycodone Allergy Unknown Verified 02/18/21 10:22 pepper (genus Capsicum) Allergy Unknown Verified 02/18/21 10:22 [pepper] pollen extracts Allergy Unknown Verified 02/18/21 10:22 strawberry Allergy Unknown Verified 02/18/21 10:22 Tetanus Vaccines and Toxoid Allergy Unknown Verified 02/18/21 10:22 walnut Allergy Unknown Verified 02/18/21 10:22 JOHN Inhibitors AdvReac Intermediate dizzy Verified 02/18/21 10:22 ciprofloxacin [From Cipro] AdvReac Intermediate dizzy/light Verified 02/18/21 10:22 headed ciprofloxacin HCl * AdvReac Intermediate dizzy/light Verified 02/18/21 10:22 [From Cipro] headed codeine [Codeine] AdvReac Intermediate gi problems Verified 02/18/21 10:22 midazolam HCl * [From Versed] AdvReac Intermediate short term Verified 02/18/21 10:22 memory loss osorio pepppers Allergy Mild allergy Uncoded 02/04/21 14:19 symptoms flu vaccine AdvReac Intermediate redness Uncoded 02/04/21 14:19 - Social History Does the pt smoke?: No Smoking Status: Never smoker Does the pt drink ETOH?: No Does the pt have substance abuse?: No - Immunizations Immunizations are current?: No Immunizations: TDAP >10years/unknown - POLST Patient has POLST: Yes PD ED PE NORMAL - Vitals Vital signs reviewed: Yes - General General: No acute distress, Well developed/nourished, Other (Once aroused, the patient is alert and answers questions briskly.) - HEENT HEENT: Atraumatic, PERRL, EOMI, Moist mucous membranes - Neck Neck: Supple, no meningeal sign - Cardiac Cardiac: RRR, No murmur, Strong equal pulses - Respiratory Respiratory: No respiratory distress, Clear bilaterally - Abdomen Abdomen: Soft, Non tender, Non distended - Derm Derm: Normal color, Warm and dry, No rash - Extremities Extremities: No deformity, No edema, No calf tenderness / cord - Neuro Neuro: 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 She knows her name. She knows her is getting surgery, but states that it is "in [place]".) - Psych Psych: Normal mood, Normal affect Results - Vitals Vitals: Oxygen O2 Source Room air - Labs Labs: Microbiology 02/18/21 12:23 Urine Culture - Preliminary Urine,Catheterized Laboratory Tests 02/18/21 02/18/21 02/18/21 11:50 11:50 12:23 WBC 8.5 RBC 4.82 Hgb 13.7 Hct 43.4 MCV 90.0 MCH 28.4 MCHC 31.6 L RDW 13.2 Plt Count 265 MPV 8.9 Neut # (Auto) 6.3 Lymph # (Auto) 1.4 L Meigs # (Auto) 0.6 Eos # (Auto) 0.1 Baso # (Auto) 0.1 Absolute Nucleated RBC 0.00 Nucleated RBC % 0.0 Sodium 139 Potassium 4.1 Chloride 105 Carbon Dioxide 26 Anion Gap 8.0 BUN 28 H Creatinine 0.8 Estimated GFR (MDRD) 68 L Glucose 121 H Calcium 9.8 Total Bilirubin 0.7 AST 13 ALT 14 Alkaline Phosphatase 92 Total Protein 6.8 Albumin 3.9 Globulin 2.9 Albumin/Globulin Ratio 1.3 Lipase 20 L Urine Color YELLOW Urine Clarity HAZY Urine pH 6.0 Ur Specific [place] 1.020 Urine Protein NEGATIVE Urine Glucose (UA) NEGATIVE Urine Ketones NEGATIVE Urine Occult Blood MODERATE H Urine Nitrite NEGATIVE Urine Bilirubin NEGATIVE Urine Urobilinogen 0.2 (NORMAL) Ur Leukocyte Esterase TRACE H Urine RBC 0-5 Urine WBC 6-10 H Ur Squamous Epith Cells RARE Squamous Urine Bacteria Rare Ur Microscopic Review INDICATED Urine Culture Comments INDICATED PD MEDICAL DECISION MAKING - ED course Complexity details: reviewed results, re-evaluated patient, considered differential, d/w patient ED course: The patient was able to be aroused in the emergency department, and was without complaints. However, because of her compromised cognition with her history of dementia, labs and UA were obtained. She was also given a liter of 0.9 NS. Work-up was unremarkable. She remained alert and conversant for the entire stay after being aroused. I felt she was stable for d/c home. Departure - Departure Disposition: Home, Self Care Clinical Impression: Altered mental status Qualifiers: Altered mental status type: unspecified Qualified Code(s): R41.82 - Altered mental status, unspecified Condition: Stable Instructions: ED Confusion, ED Dementia Caregiver Support Comments: Extensive work-up today has been negative. Ms. Jacobsen woke up very well for us and was able to converse and has been alert since. There is no evidence of an emergent or serious cause of her drowsiness this morning. Discharge Date/Time: 02/18/21 14:20
[2021-02-18 11:31] VITALS: BP 167/65
[2021-02-18 11:54] LABS: BASOPHILS # (AUTO) 0.1 10^3/uL (0.0-0.1); BASOPHILS % (AUTO) 0.6 %; EOSINOPHILS # (AUTO) 0.1 10^3/uL (0.0-0.7); EOSINOPHILS % (AUTO) 0.9 %; HCT - HEMATOCRIT 43.4 % (37.0-47.0); HGB - HEMOGLOBIN 13.7 g/dL (12.0-16.0); LYMPHOCYTES # (AUTO) 1.4 10^3/uL (1.5-3.5); LYMPHOCYTES % (AUTO) 16.6 %; MEAN CORPUSCULAR HEMOGLOBIN 28.4 pg (27.0-31.0); MEAN CORPUSCULAR HGB CONC 31.6 g/dL (32.0-36.0); MEAN PLATELET VOLUME 8.9 fL (7.9-10.8); MONOCYTES # (AUTO) 0.6 10^3/uL (0.0-1.0); MONOCYTES % (AUTO) 7.6 %; NEUTROPHILS # (AUTO) 6.3 10^3/uL (1.5-6.6); NEUTROPHILS % (AUTO) 73.9 %; PLT - PLATELET COUNT 265 10^3/uL (130-450); RED BLOOD COUNT 4.82 10^6/uL (4.20-5.40); RED CELL DISTRIBUTION WIDTH 13.2 % (12.0-15.0); WHITE BLOOD COUNT 8.5 x10^3/uL (4.8-10.8)
[2021-02-18 12:09] LABS: ALBUMIN 3.9 g/dL (3.2-5.5); ALBUMIN/GLOBULIN RATIO 1.3 (1.0-2.2); BILIRUBIN,TOTAL 0.7 mg/dL (0.2-1.0); CALCIUM 9.8 mg/dL (8.5-10.3); CREATININE 0.8 mg/dL (0.4-1.0); POTASSIUM 4.1 mmol/L (3.5-5.0); TOTAL PROTEIN 6.8 g/dL (6.7-8.2)
[2021-02-18 12:37] LABS: BILIRUBIN,URINE NEGATIVE (NEGATIVE); GLUCOSE, URINE (UA) NEGATIVE (NEGATIVE); KETONES,URINE (UA) NEGATIVE (NEGATIVE); LEUKOCYTE ESTERASE, URINE TRACE (NEGATIVE); NITRITE,URINE NEGATIVE (NEGATIVE); OCCULT BLOOD,URINE MODERATE (NEGATIVE); PROTEIN,URINE NEGATIVE (NEGATIVE); UROBILINOGEN,URINE 0.2 (NORMAL) E.U./dL (NORMAL)
[2021-02-18 12:42] LABS: CLARITY,URINE HAZY (CLEAR)
[2021-02-18 12:50] LABS: BACTERIA,URINE Rare /HPF (None Seen); RBC,URINE 0-5 /HPF (0-5); SQUAMOUS EPITHELIAL CELL,UR RARE Squamous (<= Few)
--- NOTE | 2021-02-21 11:56 | ED Physician Documentation ---
ED Addendum - Addendum Addendum: 02/21/21 11:51 Urine cx from 02/18/21 has grown very light Pseudomonas and enterococcus (beckwith sensitive). This was a urine cath. however pt has a fairly unremarkable UA on the ED visit and was asymptomatic for urinary symptoms. Since DC home she has been at baseline mentation, no fevers, no c/o abdominal pain or n/v. I discussed cath results with the and at this time with risk benefit discussion, decide not to treat the urine cx at this time unless symptoms change.
== END 2021-02-18 14:20 | disposition home or self-care (01) ==
LOC: EDBD → EDUNIT# → ED 10:07
DX: R41.82 Altered mental status, unspecified (principal); F03.90 Unspecified dementia, unspecified severity, without behavioral disturbance, psychotic disturbance, mood disturbance, and anxiety; M25.552 Pain in left hip; E11.9 Type 2 diabetes mellitus without complications; Z79.82 Long term (current) use of aspirin
CPT/HCPCS: 36415; 80053; 81001; 81003; 83690; 85025; 87077; 87086; 87181; 96360; 96361; 99283

== ENCOUNTER 2021-02-26 21:09 | Outpatient (CLI) | payer MEDICARE, OTHER | END 2021-02-26 21:10 | disposition critical access hospital (66) | LOC: EMS 21:09 | DX: R10.2 Pelvic and perineal pain (principal) | CPT/HCPCS: A0425; A0429 ==

== ENCOUNTER 2021-02-26 21:19 | Emergency (ER) | payer MEDICARE, OTHER ==
--- NOTE | 2021-02-26 21:18 | ED Physician Documentation ---
PD HPI FEMALE - Stated complaint Stated Complaint: VAGINAL PAIN - History obtained from History obtained from: Patient, EMS - History of Present Illness Timing - onset: How many weeks ago (2) Timing - duration: Weeks (2 weeks of some pain perineal but worse the past day or two.) Timing - details: Gradual onset, Waxing and waning, Still present in ED Associated symptoms: Vaginal pain. No: Fever, Back pain, Vaginal discharge, Dysuria Similar symptoms before: Has not had sx before Review of Systems Constitutional: denies: Fever Nose: denies: Rhinorrhea / runny nose, Congestion Throat: denies: Sore throat Respiratory: denies: Cough GI: denies: Vomiting, Diarrhea : denies: Dysuria PD PAST MEDICAL HISTORY - Past Medical History Cardiovascular: None Respiratory: None Endocrine/Autoimmune: None - Present Medications Home Medications: Ambulatory Orders Medication Instructions Recorded Confirmed Levothyroxine [Synthroid] 25 mcg PO DAILY 01/10/13 12/18/20 Atorvastatin [Lipitor] 20 mg PO DAILY 12/20/17 12/18/20 Aspirin [Adult Aspirin Regimen] 81 mg PO BID 04/12/19 12/18/20 Cholecalciferol (Vitamin D3) 2,000 unit PO DAILY 04/12/19 12/18/20 [Vitamin D3] Gabapentin [Neurontin] 300 mg PO PRN PRN 05/23/20 12/18/20 Spironolactone [Aldactone] 12.5 mg PO DAILY 05/23/20 12/18/20 Amlodipine Besylate [Norvasc] 2.5 mg DAILY 11/01/20 12/18/20 Esomeprazole Magnesium [Nexium 1 cap PO DAILY 02/13/21 02/13/21 24Hr] Vitamin D 2,000 unit PO DAILY 02/13/21 Wal Zyr 1 tab PO DAILY 02/13/21 Clotrimazole/Betamethasone Crm 1 applic TOP BID 5 Days #30 gm 02/26/21 [Lotrisone Cream] Fluconazole [Diflucan] 150 mg PO Q3D #3 tablet 02/26/21 Vits A and D/White Pet/Lanolin 1 applic TP BID 7 Days #425 gm 02/26/21 [Vitamin A and D Ointment] cephALEXin [Keflex] 500 mg PO TID 5 Days #15 cap 02/26/21 - Allergies Allergies/Adverse Reactions: Allergies Allergy/AdvReac Type Severity Reaction Status Date / Time alcohol Allergy Intermediate unsure Verified 02/26/21 21:31 chocolate flavor Allergy Unknown Unknown Verified 02/26/21 21:31 Penicillins Allergy Unknown unknown Verified 02/26/21 21:31 Sulfa (Sulfonamide Allergy Unknown unknown Verified 02/26/21 21:31 Antibiotics) adhesive Allergy Unknown Verified 02/26/21 21:31 bee venom protein (honey bee) Allergy Unknown Verified 02/26/21 21:31 coconut Allergy Unknown Verified 02/26/21 21:31 grass pollen Allergy Unknown Verified 02/26/21 21:31 mussels Allergy Unknown Verified 02/26/21 21:31 mustard Allergy Unknown Verified 02/26/21 21:31 oxycodone Allergy Unknown Verified 02/26/21 21:31 pepper (genus Capsicum) Allergy Unknown Verified 02/26/21 21:31 [pepper] pollen extracts Allergy Unknown Verified 02/26/21 21:31 strawberry Allergy Unknown Verified 02/26/21 21:31 Tetanus Vaccines and Toxoid Allergy Unknown Verified 02/26/21 21:31 walnut Allergy Unknown Verified 02/26/21 21:31 JOHN Inhibitors AdvReac Intermediate dizzy Verified 02/26/21 21:31 ciprofloxacin [From Cipro] AdvReac Intermediate dizzy/light Verified 02/26/21 21:31 headed ciprofloxacin HCl * AdvReac Intermediate dizzy/light Verified 02/26/21 21:31 [From Cipro] headed codeine [Codeine] AdvReac Intermediate gi problems Verified 02/26/21 21:31 midazolam HCl * [From Versed] AdvReac Intermediate short term Verified 02/26/21 21:31 memory loss osorio pepppers Allergy Mild allergy Uncoded 02/26/21 21:31 symptoms flu vaccine AdvReac Intermediate redness Uncoded 02/26/21 21:31 PD ED PE NORMAL - Vitals Vital signs reviewed: Yes - General General: Alert and oriented X 3, No acute distress, Well developed/nourished - Neck Neck: Supple, no meningeal sign, No adenopathy - Cardiac Cardiac: RRR, No murmur - Respiratory Respiratory: Clear bilaterally - Abdomen Abdomen: Soft, Non tender - Female Female : Plant Chief present, Other (external labia, perineal and perirectal area with demarcated red-edged rash with some mild red speckling at edges with superficial skin breakdown perirectal. Some clear/yellow exudate noted in those areas c/w possible secondary infection. ) - Back Back: No CVA TTP - Derm Derm: Normal color Results - Vitals Vitals: Vital Signs - 24 hr 02/26/21 02/26/21 21:29 22:04 Temperature 36.6 C Heart Rate 80 59 L Respiratory 22 Rate Blood Pressure 130/75 149/72 H O2 Saturation 97 95 Oxygen O2 Source Room air - Labs Labs: Laboratory Tests 02/26/21 02/26/21 21:41 21:41 WBC 8.7 RBC 4.48 Hgb 12.7 Hct 39.9 MCV 89.1 MCH 28.3 MCHC 31.8 L RDW 13.1 Plt Count 274 MPV 9.1 Neut # (Auto) 6.6 Lymph # (Auto) 1.4 L [place] # (Auto) 0.6 Eos # (Auto) 0.1 Baso # (Auto) 0.1 Absolute Nucleated RBC 0.00 Nucleated RBC % 0.0 Sodium 138 Potassium 3.9 Chloride 106 Carbon Dioxide 24 Anion Gap 8.0 BUN 32 H Creatinine 0.8 Estimated GFR (MDRD) 68 L Glucose 184 H Calcium 9.9 Total Bilirubin 0.4 AST 15 ALT 14 Alkaline Phosphatase 97 Total Protein 6.6 L Albumin 3.9 Globulin 2.7 Albumin/Globulin Ratio 1.4 Lipase 22 PD MEDICAL DECISION MAKING - ED course Complexity details: considered differential (having pain vaginal/perineum and clearly has raw rash in the area. Does not appear fascial.), d/w patient Departure - Departure Disposition: 01 Home, Self Care Clinical Impression: Vulvovaginal candidiasis, Cellulitis, perineum Condition: Stable Record reviewed to determine appropriate education?: Yes Instructions: ED Tinea Cruris General Follow-Up: Ngozi Astudillo ARNP, [employer] SALES CONSULTANT-BC [Provider Admit Priv/Credential] - Prescriptions: Fluconazole [Diflucan] 150 mg PO Q3D #3 tablet cephALEXin [Keflex] 500 mg PO TID 5 Days #15 cap Clotrimazole/Betamethasone Crm [Lotrisone Cream] 1 applic TOP BID 5 Days #30 gm Vits A and D/White Pet/Lanolin [Vitamin A and D Ointment] 1 applic TP BID 7 Days #425 gm Comments: Tylenol every 4-6 hours if needed for pain. Cleanse the rash area gently with soap and water twice daily and pat dry. Apply Lotrisone (Chlortrimazole with betamethasone) lightly to the area and then some A&E ointment over it as a protective layer. Also take Diflucan antifungal orally every 3 days for 3 more doses to help with the infection as well. It looks predominantly yeast infection of the vaginal area and perineum and perirectal area. However it does look likely to have a secondary bacterial infection as well. For that take cephalexin 3 times a day for 5 days. I would anticipate improvement over the next several days and resolved by 4 to 5 days as these usually clear up fairly quickly. Recheck if not improving well in that timeframe. Discharge Date/Time: 02/26/21 23:03
[2021-02-26 21:45] LABS: BASOPHILS # (AUTO) 0.1 10^3/uL (0.0-0.1); BASOPHILS % (AUTO) 0.6 %; EOSINOPHILS # (AUTO) 0.1 10^3/uL (0.0-0.7); EOSINOPHILS % (AUTO) 0.7 %; HCT - HEMATOCRIT 39.9 % (37.0-47.0); HGB - HEMOGLOBIN 12.7 g/dL (12.0-16.0); LYMPHOCYTES # (AUTO) 1.4 10^3/uL (1.5-3.5); MEAN CORPUSCULAR HEMOGLOBIN 28.3 pg (27.0-31.0); MEAN CORPUSCULAR HGB CONC 31.8 g/dL (32.0-36.0); MEAN CORPUSCULAR VOLUME 89.1 fL (81.0-99.0); MEAN PLATELET VOLUME 9.1 fL (7.9-10.8); MONOCYTES # (AUTO) 0.6 10^3/uL (0.0-1.0); MONOCYTES % (AUTO) 6.4 %; NEUTROPHILS # (AUTO) 6.6 10^3/uL (1.5-6.6); NEUTROPHILS % (AUTO) 75.8 %; PLT - PLATELET COUNT 274 10^3/uL (130-450); RED BLOOD COUNT 4.48 10^6/uL (4.20-5.40); RED CELL DISTRIBUTION WIDTH 13.1 % (12.0-15.0); WHITE BLOOD COUNT 8.7 x10^3/uL (4.8-10.8)
[2021-02-26 21:59] LABS: ALBUMIN 3.9 g/dL (3.2-5.5); ALBUMIN/GLOBULIN RATIO 1.4 (1.0-2.2); BILIRUBIN,TOTAL 0.4 mg/dL (0.2-1.0); CALCIUM 9.9 mg/dL (8.5-10.3); CREATININE 0.8 mg/dL (0.4-1.0); POTASSIUM 3.9 mmol/L (3.5-5.0); TOTAL PROTEIN 6.6 g/dL (6.7-8.2)
[2021-02-26 22:05] VITALS: BP 149/72
[2021-02-26] MEDS ORDERED: cephALEXin 250 MG CAPSULE PO STA (22:15)
[2021-02-26] MEDS ORDERED: FLUCONAZOLE 100 MG TABLET PO STA (22:15)
[2021-02-26] MEDS ORDERED: BACITRACIN ZINC OINT 1 PACKET TOP STA (22:16)
== END 2021-02-26 23:03 | disposition home or self-care (01) ==
LOC: EDUNIT# → ED 21:19
DX: B37.3 Candidiasis of vulva and vagina (principal); L03.315 Cellulitis of perineum; Z79.82 Long term (current) use of aspirin
CPT/HCPCS: 36415; 80053; 83690; 85025; 99283; A9270

== ENCOUNTER 2021-03-06 14:34 | Outpatient (CLI) | payer MEDICARE, OTHER | END 2021-03-06 14:35 | disposition critical access hospital (66) | LOC: EMS 14:34 | DX: R53.1 Weakness (principal); R30.0 Dysuria; R32 Unspecified urinary incontinence | CPT/HCPCS: A0425; A0429 ==

== ENCOUNTER 2021-03-06 14:43 | Emergency (ER) | payer MEDICARE, OTHER ==
--- NOTE | 2021-03-06 14:48 | ED Physician Documentation ---
PD HPI DYSPNEA - Stated complaint Stated Complaint: GEN WEAKNESS - History obtained from History obtained from: Patient - History of Present Illness Timing - onset: Last night Timing - duration: Days (1) Timing - details: Gradual onset, Still present Inciting event(s): Other ( noted her seeming weaker and slightly confused. Similar to prior substance/med overuse and with prior UTI.). No: Out of meds, URI Improved by: Rest Associated symptoms: No: Fever, Cough, Wheezing, Bilateral edema Recently seen: Emergency Dept (8 days ago for pelvic pain and Dx with yeast vulvogvagnitis and Rx Diflucan and topical Lotrisone. She says it has been feeling better. She says she feels okay today without problems.) Review of Systems Constitutional: denies: Fever, Chills Nose: denies: Rhinorrhea / runny nose, Congestion Throat: denies: Sore throat Respiratory: denies: Cough GI: denies: Abdominal Pain, Nausea, Vomiting Skin: denies: Rash Neurologic: reports: Generalized weakness. 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, Oophrectomy, Other Cardiovascular: Cardiac catheterization HEENT: Cataracts Derm: Skin cancer surgery - Present Medications Home Medications: Ambulatory Orders Medication Instructions Recorded Confirmed Levothyroxine [Synthroid] 25 mcg PO DAILY 01/10/13 12/18/20 Atorvastatin [Lipitor] 20 mg PO DAILY 12/20/17 12/18/20 Aspirin [Adult Aspirin Regimen] 81 mg PO BID 04/12/19 12/18/20 Cholecalciferol (Vitamin D3) 2,000 unit PO DAILY 04/12/19 12/18/20 [Vitamin D3] Gabapentin [Neurontin] 300 mg PO PRN PRN 05/23/20 12/18/20 Spironolactone [Aldactone] 12.5 mg PO DAILY 05/23/20 12/18/20 Amlodipine Besylate [Norvasc] 2.5 mg DAILY 11/01/20 12/18/20 Esomeprazole Magnesium [Nexium 1 cap PO DAILY 02/13/21 02/13/21 24Hr] Vitamin D 2,000 unit PO DAILY 02/13/21 Wal Zyr 1 tab PO DAILY 02/13/21 Clotrimazole/Betamethasone Crm 1 applic TOP BID 5 Days #30 gm 02/26/21 [Lotrisone Cream] Fluconazole [Diflucan] 150 mg PO Q3D #3 tablet 02/26/21 Vits A and D/White Pet/Lanolin 1 applic TP BID 7 Days #425 gm 02/26/21 [Vitamin A and D Ointment] cephALEXin [Keflex] 500 mg PO TID 5 Days #15 cap 02/26/21 terbinafine HCL [Terbinafine HCl] 250 mg PO DAILY 6 Days #6 tablet 03/06/21 - Allergies Allergies/Adverse Reactions: Allergies Allergy/AdvReac Type Severity Reaction Status Date / Time alcohol Allergy Intermediate unsure Verified 02/26/21 21:31 chocolate flavor Allergy Unknown Unknown Verified 02/26/21 21:31 Penicillins Allergy Unknown unknown Verified 02/26/21 21:31 Sulfa (Sulfonamide Allergy Unknown unknown Verified 02/26/21 21:31 Antibiotics) adhesive Allergy Unknown Verified 02/26/21 21:31 bee venom protein (honey bee) Allergy Unknown Verified 02/26/21 21:31 coconut Allergy Unknown Verified 02/26/21 21:31 grass pollen Allergy Unknown Verified 02/26/21 21:31 mussels Allergy Unknown Verified 02/26/21 21:31 mustard Allergy Unknown Verified 02/26/21 21:31 oxycodone Allergy Unknown Verified 02/26/21 21:31 pepper (genus Capsicum) Allergy Unknown Verified 03/06/21 14:48 [pepper] pollen extracts Allergy Unknown Verified 03/06/21 14:48 strawberry Allergy Unknown Verified 03/06/21 14:48 Tetanus Vaccines and Toxoid Allergy Unknown Verified 03/06/21 14:48 walnut Allergy Unknown Verified 03/06/21 14:48 JOHN Inhibitors AdvReac Intermediate dizzy Verified 03/06/21 14:48 ciprofloxacin [From Cipro] AdvReac Intermediate dizzy/light Verified 03/06/21 14:48 headed ciprofloxacin HCl * AdvReac Intermediate dizzy/light Verified 03/06/21 14:48 [From Cipro] headed codeine [Codeine] AdvReac Intermediate gi problems Verified 03/06/21 14:48 midazolam HCl * [From Versed] AdvReac Intermediate short term Verified 03/06/21 14:48 memory loss osorio pepppers Allergy Mild allergy Uncoded 03/06/21 14:48 symptoms flu vaccine AdvReac Intermediate redness Uncoded 03/06/21 14:48 - Social History Does the pt smoke?: No Smoking Status: Never smoker Does the pt drink ETOH?: No Does the pt have substance abuse?: No - Immunizations Immunizations are current?: No Immunizations: TDAP >10years/unknown - POLST Patient has POLST: Yes PD ED PE NORMAL - Vitals Vital signs reviewed: Yes - General General: Alert and oriented X 3, No acute distress, Well developed/nourished, Other (poor short term memory of events the past few days nor prior ER visit, but alert. c/w dementia. ) - HEENT HEENT: Atraumatic, Pharynx benign - Neck Neck: Supple, no meningeal sign, No adenopathy - Cardiac Cardiac: RRR, No murmur - Respiratory Respiratory: Clear bilaterally - Abdomen Abdomen: Normal bowel sounds, Soft, Non tender, Non distended - Female Female : Skimmer Reverberatory present, Other (mild crural demarcated redness c/w tinea cruris, much improved from prior visit (which I had seen). Secondary infection seems improved. ) - Back Back: No CVA TTP - Derm Derm: Normal color, Warm and dry Results - Vitals Vitals: Oxygen O2 Source Room air - Labs Labs: Laboratory Tests 03/06/21 03/06/21 03/06/21 15:25 15:25 15:30 WBC 7.7 RBC 5.12 Hgb 14.3 Hct 44.9 MCV 87.7 MCH 27.9 MCHC 31.8 L RDW 13.0 Plt Count 261 MPV 9.3 Neut # (Auto) 5.5 Lymph # (Auto) 1.6 [place] # (Auto) 0.5 Eos # (Auto) 0.0 Baso # (Auto) 0.1 Absolute Nucleated RBC 0.00 Nucleated RBC % 0.0 Sodium 137 Potassium 4.3 Chloride 103 Carbon Dioxide 22 Anion Gap 12.0 BUN 33 H Creatinine 0.9 Estimated GFR (MDRD) 59 L Glucose 118 H Calcium 10.4 H Magnesium 2.1 Total Bilirubin 0.9 AST 30 ALT 17 Alkaline Phosphatase 92 Total Protein 7.1 Albumin 4.0 Globulin 3.1 Albumin/Globulin Ratio 1.3 Lipase 20 L Urine Color YELLOW Urine Clarity CLEAR Urine pH 5.0 Ur Specific Paia >=1.030 H Urine Protein NEGATIVE Urine Glucose (UA) NEGATIVE Urine Ketones TRACE Urine Occult Blood NEGATIVE Urine Nitrite NEGATIVE Urine Bilirubin NEGATIVE Urine Urobilinogen 0.2 (NORMAL) Ur Leukocyte Esterase NEGATIVE Ur Microscopic Review NOT INDICATED Urine Culture Comments NOT INDICATED PD MEDICAL DECISION MAKING - ED course Complexity details: considered differential (patient appears well without problems. ), d/w patient Departure - Departure Disposition: Home, Self Care Clinical Impression: Tinea cruris, General weakness Clinical Impression: (Ruled Out): UTI (urinary tract infection) Condition: Stable Record reviewed to determine appropriate education?: Yes Follow-Up: Kourtney Baer PA-C [Primary Care Provider] - Prescriptions: terbinafine HCL [Terbinafine HCl] 250 mg PO DAILY 6 Days #6 tablet Comments: Your blood count, urine test and chest x-ray are clear without any signs of infections. Your electrolytes and blood sugar are good. You do still have some yeast appearing infection in the groin and we can try a different antifungal from the last time. Terbinafine 250 mg daily for 6 days. Stay well-hydrated and continue usual medicines. Return as needed. Discharge Date/Time: 03/06/21 17:05
[2021-03-06] MEDS ORDERED: SODIUM CHLORIDE 0.9% 1,000 ML IV STA (15:10)
[2021-03-06 15:37] LABS: BASOPHILS # (AUTO) 0.1 10^3/uL (0.0-0.1); BASOPHILS % (AUTO) 0.6 %; EOSINOPHILS % (AUTO) 0.5 %; HCT - HEMATOCRIT 44.9 % (37.0-47.0); HGB - HEMOGLOBIN 14.3 g/dL (12.0-16.0); LYMPHOCYTES # (AUTO) 1.6 10^3/uL (1.5-3.5); LYMPHOCYTES % (AUTO) 20.1 %; MEAN CORPUSCULAR HEMOGLOBIN 27.9 pg (27.0-31.0); MEAN CORPUSCULAR HGB CONC 31.8 g/dL (32.0-36.0); MEAN CORPUSCULAR VOLUME 87.7 fL (81.0-99.0); MEAN PLATELET VOLUME 9.3 fL (7.9-10.8); MONOCYTES # (AUTO) 0.5 10^3/uL (0.0-1.0); NEUTROPHILS # (AUTO) 5.5 10^3/uL (1.5-6.6); NEUTROPHILS % (AUTO) 71.3 %; PLT - PLATELET COUNT 261 10^3/uL (130-450); RED BLOOD COUNT 5.12 10^6/uL (4.20-5.40); WHITE BLOOD COUNT 7.7 x10^3/uL (4.8-10.8)
--- NOTE | 2021-03-06 15:38 | XRAY Report ---
PROCEDURE: Chest 1 View X-Ray INDICATIONS: Chest pain TECHNIQUE: One view of the chest was acquired. COMPARISON: March 02, 2020 FINDINGS: SUPPORT DEVICES: Redemonstrated right shoulder arthroplasty. LUNG/PLEURA: No focal consolidation or pulmonary edema. No pleural effusion or space-occupying pneumo thorax. Calcified granuloma in the left lower lobe. MEDIASTINUM: The cardiomediastinal silhouette is within normal limits. BONES/SOFT TISSUES: No acute abnormality. Persistent elevation of the right diaphragm. IMPRESSION: 1.No acute cardiopulmonary abnormality. Reviewed by: Lukas Espino MD on 03/06/2021 3:36 PM PDT Approved by: Lukas Espino MD on 03/06/2021 3:36 PM PDT Station ID: [id number]
[2021-03-06 15:46] LABS: ALBUMIN/GLOBULIN RATIO 1.3 (1.0-2.2); BILIRUBIN,TOTAL 0.9 mg/dL (0.2-1.0); CALCIUM 10.4 mg/dL (8.5-10.3); CREATININE 0.9 mg/dL (0.4-1.0); MAGNESIUM 2.1 mg/dL (1.7-2.8); POTASSIUM 4.3 mmol/L (3.5-5.0); TOTAL PROTEIN 7.1 g/dL (6.7-8.2)
[2021-03-06 15:52] LABS: BILIRUBIN,URINE NEGATIVE (NEGATIVE); GLUCOSE, URINE (UA) NEGATIVE (NEGATIVE); KETONES,URINE (UA) TRACE mg/dL (NEGATIVE); LEUKOCYTE ESTERASE, URINE NEGATIVE (NEGATIVE); NITRITE,URINE NEGATIVE (NEGATIVE); OCCULT BLOOD,URINE NEGATIVE (NEGATIVE); PROTEIN,URINE NEGATIVE (NEGATIVE); UROBILINOGEN,URINE 0.2 (NORMAL) E.U./dL (NORMAL)
[2021-03-06 15:58] LABS: CLARITY,URINE CLEAR (CLEAR)
[2021-03-06 17:04] VITALS: BP 148/66
== END 2021-03-06 17:05 | disposition home or self-care (01) ==
LOC: EDUNIT# → SUPCPDRO 14:43 → ED 14:43
DX: R53.1 Weakness (principal); R41.0 Disorientation, unspecified; B35.6 Tinea cruris; F03.90 Unspecified dementia, unspecified severity, without behavioral disturbance, psychotic disturbance, mood disturbance, and anxiety
CPT/HCPCS: 36415; 51701; 80053; 81001; 81003; 83690; 83735; 85025; 87086; 99284

== ENCOUNTER 2021-03-09 20:48 | Outpatient (CLI) | payer MEDICARE, OTHER | END 2021-03-09 20:49 | disposition EMS.NT | LOC: EMS 20:48 | DX: Z03.89 Encounter for observation for other suspected diseases and conditions ruled out (principal) ==

== ENCOUNTER 2021-03-12 16:08 | Outpatient (CLI) | payer MEDICARE, OTHER | END 2021-03-12 16:09 | disposition EMS.NT | LOC: EMS 16:08 | DX: Z03.89 Encounter for observation for other suspected diseases and conditions ruled out (principal) ==

== ENCOUNTER 2021-03-20 20:09 | Outpatient (CLI) | payer MEDICARE, OTHER | END 2021-03-20 20:10 | disposition critical access hospital (66) | LOC: EMS 20:09 | DX: Z04.3 Encounter for examination and observation following other accident (principal); M54.2 Cervicalgia; R51.9 Headache, unspecified; M54.50 Low back pain, unspecified | CPT/HCPCS: A0425; A0429 ==

== ENCOUNTER 2021-03-20 20:16 | Emergency (ER) | payer MEDICARE, OTHER ==
--- NOTE | 2021-03-20 20:24 | ED Physician Documentation ---
PD HPI Fall - Stated complaint Stated Complaint: GLF - Chief complaint Chief Complaint: Trauma Ch/Bk - History obtained from History obtained from: Patient, Family (), EMS - History of Present Illness Mechanism of injury: Lost balance Fall distance: Standing position (while walking to bathroom, lost balance and fell backward, hitting buttock then onto back. Pain in low back, neck, some in back of head. No LOC.) Where injury occurred: Home Timing - onset: How many hours ago (1), Today Injury(ies) location: Head, Neck, Back. No: Chest, Abdomen Quality of pain: Aching Associated symptoms: No: LOC, AMS, Nausea / vomiting Review of Systems Constitutional: denies: Fever Nose: denies: Rhinorrhea / runny nose, Congestion Throat: denies: Sore throat Cardiac: denies: Chest pain / pressure Respiratory: denies: Cough GI: denies: Abdominal Pain, Vomiting, Diarrhea, Bloody / black stool Skin: denies: Abrasion (s), Laceration (s) Neurologic: reports: Generalized weakness (baseline), Confused (baseline dementia), Head injury. 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, Other Cardiovascular: Cardiac catheterization HEENT: Cataracts Derm: Skin cancer surgery - Present Medications Home Medications: Ambulatory Orders Medication Instructions Recorded Confirmed Levothyroxine [Synthroid] 25 mcg PO DAILY 01/10/13 12/18/20 Atorvastatin [Lipitor] 20 mg PO DAILY 12/20/17 12/18/20 Aspirin [Adult Aspirin Regimen] 81 mg PO BID 04/12/19 12/18/20 Cholecalciferol (Vitamin D3) 2,000 unit PO DAILY 04/12/19 12/18/20 [Vitamin D3] Gabapentin [Neurontin] 300 mg PO PRN PRN 05/23/20 12/18/20 Spironolactone [Aldactone] 12.5 mg PO DAILY 05/23/20 12/18/20 Amlodipine Besylate [Norvasc] 2.5 mg DAILY 11/01/20 12/18/20 Esomeprazole Magnesium [Nexium 1 cap PO DAILY 02/13/21 02/13/21 24Hr] Vitamin D 2,000 unit PO DAILY 02/13/21 Wal Zyr 1 tab PO DAILY 02/13/21 Clotrimazole/Betamethasone Crm 1 applic TOP BID 5 Days #30 gm 02/26/21 [Lotrisone Cream] Fluconazole [Diflucan] 150 mg PO Q3D #3 tablet 02/26/21 Vits A and D/White Pet/Lanolin 1 applic TP BID 7 Days #425 gm 02/26/21 [Vitamin A and D Ointment] cephALEXin [Keflex] 500 mg PO TID 5 Days #15 cap 02/26/21 terbinafine HCL [Terbinafine HCl] 250 mg PO DAILY 6 Days #6 tablet 03/06/21 - Allergies Allergies/Adverse Reactions: Allergies Allergy/AdvReac Type Severity Reaction Status Date / Time alcohol Allergy Intermediate unsure Verified 03/20/21 20:26 chocolate flavor Allergy Unknown Unknown Verified 03/20/21 20:26 Penicillins Allergy Unknown unknown Verified 03/20/21 20:26 Sulfa (Sulfonamide Allergy Unknown unknown Verified 03/20/21 20:26 Antibiotics) adhesive Allergy Unknown Verified 03/20/21 20:26 bee venom protein (honey bee) Allergy Unknown Verified 03/20/21 20:26 coconut Allergy Unknown Verified 03/20/21 20:26 grass pollen Allergy Unknown Verified 03/20/21 20:26 mussels Allergy Unknown Verified 03/20/21 20:26 mustard Allergy Unknown Verified 03/20/21 20:26 oxycodone Allergy Unknown Verified 03/20/21 20:26 pepper (genus Capsicum) Allergy Unknown Verified 03/20/21 20:26 [pepper] pollen extracts Allergy Unknown Verified 03/20/21 20:26 strawberry Allergy Unknown Verified 03/20/21 20:26 Tetanus Vaccines and Toxoid Allergy Unknown Verified 03/20/21 20:26 walnut Allergy Unknown Verified 03/20/21 20:26 JOHN Inhibitors AdvReac Intermediate dizzy Verified 03/20/21 20:26 ciprofloxacin [From Cipro] AdvReac Intermediate dizzy/light Verified 03/20/21 20:26 headed ciprofloxacin HCl * AdvReac Intermediate dizzy/light Verified 03/20/21 20:26 [From Cipro] headed codeine [Codeine] AdvReac Intermediate gi problems Verified 03/20/21 20:26 midazolam HCl * [From Versed] AdvReac Intermediate short term Verified 03/20/21 20:26 memory loss osorio pepppers Allergy Mild allergy Uncoded 03/20/21 20:26 symptoms flu vaccine AdvReac Intermediate redness Uncoded 03/20/21 20:26 - Social History Does the pt smoke?: No Smoking Status: Never smoker Does the pt drink ETOH?: No Does the pt have substance abuse?: No - Immunizations Immunizations are current?: No Immunizations: TDAP >10years/unknown - POLST Patient has POLST: Yes PD ED PE NORMAL - Vitals Vital signs reviewed: Yes - General General: No acute distress, Well developed/nourished. No: Alert and oriented X 3 (to person and place. Not sure of month. Alert with eyes open and attentive. ) - HEENT HEENT: PERRL, EOMI, Other (back of head with mild tenderness. ) - Neck Neck: Supple, no meningeal sign, No adenopathy, Other (some tender mid cervical area to palpation. ) - Cardiac Cardiac: RRR, No murmur - Respiratory Respiratory: Clear bilaterally - Abdomen Abdomen: Soft, Non tender - Back Back: Other (tender in mid scapular area without deformity. Some tender lower paralumbar muscles. ) - Derm Derm: Normal color, Warm and dry, No rash - Extremities Extremities: No deformity, Normal ROM s pain - Neuro Neuro: comprehensive advisor 2-12 intact, No motor deficit, No sensory deficit, Normal speech Eye Opening: Spontaneous Motor: Obeys Commands Verbal: Oriented GCS Score: 15 - Psych Psych: Normal affect Results - Vitals Vitals: Oxygen O2 Source Room air - Rads (name of study) head CT Radiology: Prelim report reviewed, See rad report (no acute process) cervical CT Radiology: Prelim report reviewed (no fractures), See rad report lumbar CT Radiology: Prelim report reviewed (no fractures.), See rad report thoracic CT Radiology: Prelim report reviewed (no fractures), See rad report PD MEDICAL DECISION MAKING - ED course Complexity details: reviewed results, considered differential, d/w patient, d/w family () ED course: reports patient is planned to move to assisted living for dementia and mobility concerns tomorrow. This has been planned previously. After imaging and exam, her is willing to come pick her up and bring her home. Departure - Departure Disposition: 01 Home, Self Care Clinical Impression: Fall from slip, trip, or stumble Qualifiers: Encounter type: initial encounter Qualified Code(s): W01.0XXA - Fall on same level from slipping, tripping and stumbling without subsequent striking against object, initial encounter Back contusion Qualifiers: Encounter type: initial encounter Laterality: unspecified laterality Qualified Code(s): S20.229A - Contusion of unspecified back wall of thorax, initial encounter Condition: Stable Follow-Up: Kourtney Baer PA-C [Primary Care Provider] - Comments: Your CT scans of your head neck and back do not show any fractures or acute abnormalities. You will still be sore from the fall and injury. Tylenol every 4-6 hours if needed for pains. Continue other medications and stay well- hydrated. Discharge Date/Time: 03/20/21 23:14
[2021-03-20] MEDS ORDERED: ACETAMINOPHEN 325 MG TABLET PO STA (20:36)
--- NOTE | 2021-03-20 22:11 | CT Report ---
PROCEDURE: HEAD WO INDICATIONS: fell backward with head/neck/back pain TECHNIQUE: Noncontrast 4.5 mm thick angled axial sections acquired from the foramen magnum to the vertex. For r adiation dose reduction, the following was used: automated exposure control, adjustment of mA and/or kV according to patient size. COMPARISON: None. FINDINGS: Image quality: Excellent. CSF spaces: Basal cisterns are patent. No extra-axial fluid collections. Ventricles are normal in size and shape. Brain: No midline shift. No intracranial masses or hemorrhage. Negro-white matter interface is norm al. Skull and face: Calvarium and visualized facial bones are intact, without suspicious lesions. Sinuses: Visualized sinuses and mastoids are clear. IMPRESSION: No acute intracranial abnormality. Reviewed by: Brendan Stubbs MD on 03/20/2021 10:10 PM PDT Approved by: Brendan Stubbs MD on 03/20/2021 10:10 PM PDT Station ID: [id number]
--- NOTE | 2021-03-20 22:12 | CT Report ---
PROCEDURE: CERVICAL SPINE WO INDICATIONS: fell backward with head/neck/back pain TECHNIQUE: Noncontrast 3 mm thick sections acquired from the skull base to the T4 level. Sagittal and coronal r eformats were then constructed. For radiation dose reduction, the following was used: automated exp osure control, adjustment of mA and/or kV according to patient size. COMPARISON: None. FINDINGS: Image quality: Excellent. Bones: No fractures or dislocations. Visualized superior ribs are intact. Soft tissues: Prevertebral soft tissues are normal in thickness. No paravertebral hematomas. No ap ical pneumothoraces. IMPRESSION: No fracture. Reviewed by: Brendan Stubbs MD on 03/20/2021 10:11 PM PDT Approved by: Brendan Stubbs MD on 03/20/2021 10:11 PM PDT Station ID: [id number]
--- NOTE | 2021-03-20 22:13 | CT Report ---
PROCEDURE: THORACIC SPINE WO INDICATIONS: fell backward with head/neck/back pain TECHNIQUE: Noncontrast 3 mm thick sections acquired through the region of interest in the thoracic spine. Sagit deyanira and coronal reformats were then constructed. For radiation dose reduction, the following was used : automated exposure control, adjustment of mA and/or kV according to patient size. COMPARISON: None. FINDINGS: Image quality: Excellent. Bones: There is normal overall bony alignment. No acute vertebral body compression fractures. No s uspicious sclerotic or lytic bony lesions. Central spinal canal is of normal overall caliber. Soft tissues: No paravertebral masses or hematomas. Visualized posteromedial lungs appear clear. IMPRESSION: No fracture. Reviewed by: Brendan Stubbs MD on 03/20/2021 10:12 PM PDT Approved by: Brendan Stubbs MD on 03/20/2021 10:12 PM PDT Station ID: [id number]
--- NOTE | 2021-03-20 22:14 | CT Report ---
PROCEDURE: LUMBAR SPINE WO INDICATIONS: fell backward with head/neck/back pain TECHNIQUE: Noncontrast 3 mm thick sections acquired from the T12 level to the sacrum. Sagittal and coronal refo rmats were constructed. For radiation dose reduction, the following was used: automated exposure co ntrol, adjustment of mA and/or kV according to patient size. COMPARISON: None. FINDINGS: Image quality: Excellent. Bones: There is normal bony alignment. No acute vertebral body compression fractures. No suspiciou s lytic or blastic bony lesions. Central spinal caliber is of normal overall caliber. No pars defec ts. Soft tissues: No retroperitoneal masses or hematomas. Visualized aorta is normal in caliber. IMPRESSION: No fracture. Reviewed by: Brendan Stubbs MD on 03/20/2021 10:13 PM PDT Approved by: Brendan Stubbs MD on 03/20/2021 10:13 PM PDT Station ID: [id number]
[2021-03-20 23:47] VITALS: BP 138/72
== END 2021-03-20 23:14 | disposition home or self-care (01) ==
LOC: EDUNIT# → ED 20:16
DX: S20.229A Contusion of unspecified back wall of thorax, initial encounter (principal); W01.0XXA Fall on same level from slipping, tripping and stumbling without subsequent striking against object, initial encounter; Z91.81 History of falling; Y93.01 Activity, walking, marching and hiking; Y92.009 Unspecified place in unspecified non-institutional (private) residence as the place of occurrence of the external cause; F03.90 Unspecified dementia, unspecified severity, without behavioral disturbance, psychotic disturbance, mood disturbance, and anxiety
CPT/HCPCS: 70450; 72125; 72128; 72131; 99282; 99284; A9270